=== PATIENT | male | born 1985 | race Caucasian/White ===

== ENCOUNTER → 2018-04-30 09:44 | Outpatient (CLI) | payer MEDICARE, SELFPAY ==
--- NOTE | 2018-04-30 09:50 | US_ITS ---
STUDY: RENAL ULTRASOUND - COMPLETE REASON FOR EXAM: Male, 32 years old. Bladder dysfunction TECHNIQUE: Ultrasound evaluation of the kidneys was performed with real-time and static dee-scale imaging. COMPARISON: None. FINDINGS: RIGHT KIDNEY: Atrophy of the RIGHT kidney is noted. The right kidney measures 5.2 x 3.6 x 2.5 cm. There is a normal cortex of the right kidney. The renal cortex measures 0.6 cm. There is no right renal mass or cyst. There are no right renal calculi. There is no right hydronephrosis. DISTAL RIGHT URETER: There is non-visualization of the distal right ureter. There is no demonstrated right ureterovesical junction calculus. There is no demonstrated right ureteral jet. LEFT KIDNEY: There is hypertrophy of the LEFT kidney. The left kidney measures 12.9 x 5.5 x 4.9 cm. There is a normal cortex of the left kidney. The renal cortex measures 1.9 cm. There is no left renal mass or cyst. There are no left renal calculi. There is no left hydronephrosis. DISTAL LEFT URETER: There is non-visualization of the distal left ureter. There is no demonstrated left ureterovesical junction calculus. There is no demonstrated left ureteral jet. AORTA: Not evaluated. BLADDER: Not evaluated. US/Kidney and Bladder IMPRESSION: There is atrophy of the RIGHT kidney and hypertrophy of the LEFT kidney. There are NO kidney stones, masses, cysts or hydronephrosis. Electronically Signed: Cole Connelly MD at 3:36 EST , Service support ,
== END ==
PROVIDERS: Family Provider Family Medicine; PCP Family Medicine; Referring Provider Urology; Visit Provider Urology
DX: N31.9 Neuromuscular dysfunction of bladder, unspecified (principal); N39.41 Urge incontinence; N26.1 Atrophy of kidney (terminal)
CPT/HCPCS: 76770

== ENCOUNTER 2018-06-05 06:05 | Day surgery (SDC) | payer MEDICARE, SELFPAY ==
[2018-06-05 06:54] VITALS: BP 112/66; PULSE 71; RESP 16; TEMP 36.6; O2SAT 97; BMI 21.6
[2018-06-05 07:29] LABS: Hematocrit 43.6 % (40-54); Hemoglobin 14.7 g/dl (13.0-16.5); Mean Corp Hgb Conc 33.7 g/gl (32-36); Mean Corpuscular Hgb 31.5 pg (27.0-32.0); Mean Corpuscular Volume 93.6 fL (80-94); Mean Platelet Vol. 10.3 fl (6.2-12.0); Platelet Count 182 K/mm3 (150-450); RBC Distribution Width SD 43.3 fl (35.1-43.9); Red Blood Count 4.66 M/mm3 (4.6-6.2); White Blood Count 3.8 K/mm3 (4.4-11.0)
[2018-06-05 07:31] LABS: Scan Indicated on CBC? Y/N NO
[2018-06-05] MEDS: Cefazolin 2 GM in 0.9% Normal Saline 100 ML IV (07:32)
[2018-06-05 07:37] LABS: Anion Gap 6 (5-15); BUN 25 mg/dL (7-18); Chloride 110 mmol/L (98-107); Creatinine, Serum 0.86 mg/dL (0.70-1.30); EST Glomerular Filtration Rate 109 mL/min (>60); Est Glom Filt Rate - Afr Amer 132 mL/min (>60); Estimated Creatinine Clearance 122.63 ml/min; Glucose 103 mg/dL (74-106); Potassium 3.7 mmol/L (3.5-5.1); Sodium Level 145 mmol/L (136-145)
[2018-06-05] MEDS: Lubricating Jelly 60 GM Tube 30 GM TOPICAL (07:42)
[2018-06-05] MEDS: Lidocaine Jelly 2% 20 ML Syringe (URO-JET) 20 APPLIC (07:42)
--- NOTE | 2018-06-05 07:55 | DCINST_ITS ---
Discharge Diet: Light diet - advance as tolerated Discharge Activity: Return to Normal Activity Call your doctor if you observe: Fever of 101 or Higher Suture Line Care: Avoid Pulling/Pushing, Avoid Pinching/Bending Allergies/Adverse Reactions: Allergies No Known Allergies Allergy (Verified 05/29/18 14:23) Medications to take at Discharge Ascorbic Acid [Vitamin C] 1,000 mg PO DAILY@0800 09/13/13 Cholecalciferol (Vitamin D3) [Vitamin D] 1 tab PO DAILY 09/13/13 Cranberry 500 mg PO DAILY 09/13/13 Multivitamins,Therapeutic [Multivitamin] 1 tab PO DAILY 09/13/13 Oxybutynin [Ditropan] 15 mg PO DAILY 09/13/13 Polyethylene Glycol 3350 [Miralax] 17 gm PO PRN PRN 09/13/13 Pyridoxine HCl [Vitamin B-6] 100 mg PO DAILY 09/13/13 Vitamin E 400 units PO DAILY 09/13/13 Oxycodone CR [Oxycontin] 10 mg PO TID 05/29/18 Primary Care Physician: Nba Gunter MD [Primary Care Provider] - Test Results: Test results from this visit will be discussed in further detail at your follow- up appointment, if applicable. Please Follow Up With: Luis Enrique Pearce MD When: in 4 weeks, please call to make an appointment.
--- NOTE | 2018-06-05 07:56 | PCM.OPRPT ---
Report of Operation Date of Procedure: 06/05/18 Pre-Operative Diagnosis: Neurogenic bladder frequency urgency urge incontinence Post-Operative Diagnosis: Same Surgery/Procedure Performed:: Cystoscopy and injection of neuro paralytic, Botox 300 units Description of Surgical Findings:: 32-year-old male taken back to the operating room after smooth induction of anesthesia he was placed in dorsolithotomy position lidocaine jelly was instilled into the urethra and set to take effect for 5 minutes I then performed a cystoscopy the entire length the urethra was normal the prostate was normal inside the bladder was trabeculated and left the right ureteral orifice was normal I then injected a total of 300 units into the back of the bladder and over 20 injection sites. Minimal bleeding after the injection was completed. I then drained the bladder remove the cystoscope and anesthesia was reversed. Type of Anesthesia:: Local MAC Drains: none - Admit VTE Documentation VTE Present on Admission: No VTE Mechan Device Prophylaxis: SCD's
[2018-06-05 08:00] VITALS: BP 104/60; BP 112/66; PULSE 62; RESP 16; TEMP 36.5; O2SAT 97
[2018-06-05 08:05] VITALS: BP 101/56; BP 112/66; PULSE 59; RESP 16; O2SAT 97
[2018-06-05 08:10] VITALS: BP 101/58; BP 112/66; PULSE 62; RESP 18; O2SAT 98
[2018-06-05 08:15] VITALS: BP 112/66; BP 92/61; PULSE 65; RESP 18; TEMP 36.6; O2SAT 98
[2018-06-05 08:54] VITALS: BP 112/66
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
== END 2018-06-05 08:55 | disposition home or self-care (01) ==
LOC: SDC 06:05 → AC 06:07
PROVIDERS: Family Provider Family Medicine; PCP Family Medicine; Referring Provider Urology; Visit Provider Urology
PROC: 3E0K8GC Introduction of Other Therapeutic Substance into Genitourinary Tract, Via Natural or Artificial Opening Endoscopic (ICD-10-PCS; CPT 52287; principal; 2018-06-05 07:20)
DX: N31.9 Neuromuscular dysfunction of bladder, unspecified (principal); R35.0 Frequency of micturition; N39.41 Urge incontinence; N32.89 Other specified disorders of bladder; Z79.899 Other long term (current) drug therapy; Z86.711 Personal history of pulmonary embolism
CPT/HCPCS: 52287; 80048; 85027; J7120; J0585; J2405; J3490

== ENCOUNTER 2020-04-05 12:29 | Emergency (ER) | payer MEDICARE, MEDICAID, SELFPAY ==
[2020-04-05 12:30] VITALS: BP 158/78; PULSE 64; RESP 18; TEMP 36.3; O2SAT 100; BMI 23.0
[2020-04-05 12:40] VITALS: BP 158/78; PULSE 64; RESP 18; TEMP 36.3; O2SAT 100
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
--- NOTE | 2020-04-05 12:47 | ED.VIS.GEN ---
History of Present Illness Chief Complaint: Abd Pain Informant: Patient Onset: Yesterday Context: Gradual Onset Current Severity: Mild Maximum Severity: Moderate Narrative: Patient present secondary to right lower quadrant abdominal pain. He has a history of a T4 spinal injury with resulting paraplegia. He states it is very atypical for him to feel any pain in his abdomen. He noted pain in the right lower quadrant last evening and has decreased appetite today. No fever or chills. He does self caths and states his urine has not seemed cloudy or abnormal recently. He has in the past required Botox injections to his bladder and has not done this in quite some time. He denies history of kidney stone. - Past Medical History (1) T4 spinal cord injury Status: Chronic (2) Paraplegia Status: Chronic Past Medical History - Allergies and Home Meds Allergies/Adverse Reactions: Allergies No Known Allergies Allergy (Verified 04/05/20 12:33) Primary Care Physician: Nba Gunter MD [Primary Care Provider] - Smoking Status: Never smoker Review of Systems General: Denies: Chills, Fever Eyes: Denies: Visual changes - bilaterally ENT: Denies: Bilateral ear pain Cardiovascular: Denies: Chest pain Respiratory: Denies: Dyspnea, Cough Gastrointestinal: Reports: Abdominal pain. Denies: Nausea, Vomiting Genitourinary: Denies: Dysuria Musculoskeletal: Denies: Swelling, Extremity Pain Skin: Denies: Rash Neurological: Denies: Headache Hematologic: Denies: Easy bruising, Easy bleeding Allergy: Denies: Uticaria Physical Exam Vital Signs/Narrative: Vital Signs Temp Pulse Resp BP Pulse Ox 04/05/20 12:40 97.4 F L 64 18 158/78 H 100 04/05/20 12:30 97.4 F L 64 18 158/78 H 100 Inital Vital Signs reviewed: Yes General: Well nourished, Well developed Head: Normocephalic ENT: Moist mucous membranes Neck: Supple Cardiovascular: Regular rate, Regular rhythm Respiratory: No distress, CTA bilaterally Abdomen: Soft, Tender - Mild tenderness in the right lower quadrant., Hypoactive bowel sounds. Negative for: Guarding, Rebound tenderness Skin: Normal color Neurological: Alert, Oriented x3 Psychological: Normal affect Diagnostic/Tx/Re-eval Impressions Abdomen/Pelvis CT 04/05/20 12:46 IMPRESSION: Stable severe atrophy of the right kidney. Compensatory hypertrophy of the left kidney. Electronically Signed: Magdi Nesbitt, at 15:30 EDT , Service support , 04/05/20 12:46 Abdomen/Pelvis WITH Contrast [CT] Stat Laboratory Results 04/05/20 04/05/20 04/05/20 12:50 12:50 13:19 WBC 3.9 L RBC 4.40 L Hgb 13.9 Hct 41.8 MCV 95.0 H MCH 31.6 MCHC 33.3 RDW Std Deviation 44.0 H RDW Coeff of Mode 12.7 Plt Count 167 MPV 9.7 Immature Gran % (Auto) 0.300 Neut % (Auto) 70.3 H Lymph % (Auto) 20.6 [place] % (Auto) 8.0 Eos % (Auto) 0.8 Baso % (Auto) 0.0 Absolute Neuts (auto) 2.7 Absolute Lymphs (auto) 0.80 L Nucleated RBC % 0 Sodium 143 Potassium 3.8 Chloride 107 Carbon Dioxide 31.0 Anion Gap 5 BUN 17 Creatinine 0.85 Estim Creat Clear Calc 129.63 Est GFR (MDRD) Af Amer 133 Est GFR (MDRD) Non-Af 110 BUN/Creatinine Ratio 20.0 Glucose 107 H Calcium 9.5 Total Bilirubin 0.60 Direct Bilirubin 0.17 AST 16 ALT 26 Alkaline Phosphatase 79 Total Protein 7.7 Albumin 4.1 Globulin 3.6 Urine Color Yellow Urine Clarity Clear Urine pH 7.0 Ur Specific [place] 1.010 Urine Protein Negative Urine Glucose (UA) Normal Urine Ketones Negative Urine Occult Blood Negative Urine Nitrite Negative Urine Bilirubin Negative Urine Urobilinogen 1 H Ur Leukocyte Esterase 100 H Urine RBC 0-5 SEEN Urine WBC 0-5 SEEN Ur Squamous Epith Cells 0-5 SEEN Urine Bacteria 0 SEEN Urine Mucus 0 SEEN - Medical Decision Making Patient was given morphine and Zofran for pain and nausea here. Blood work is unremarkable. Urinalysis shows no sign of infection. CT scan shows chronic atrophy of the right kidney but no acute findings noted. Appendix was visualized and appears normal. Test results discussed with patient and family at bedside. This time I do not have a definitive cause for his symptoms. He did routinely get Botox injections to his bladder yearly and has currently gone 22 months since his last injection. He states typically he would have leakage of urine that would tell him it was time to get another injection and he has not noted that this time. I wonder if you might be starting to get some bladder spasm catching a nerve causing his current pain. He was encouraged to follow-up with Dr. Pearce. ED Disposition - Plan for ED Patient: Disposition: Home or Assisted Living Diagnosis: Abdominal pain Instructions: ED Unknown Causes of Abdominal Pain Male Referrals: Nba Gunter MD [Primary Care Provider] - 3-5 Days if not improving
[2020-04-05] MEDS: Morphine 4 MG/ML Syringe IV ×2 (12:57→14:45)
[2020-04-05] MEDS: Ondansetron 4 MG/2 ML Vial IV (12:57)
[2020-04-05] MEDS: 0.9% Normal Saline 1,000 ML 150 ML IV (12:57)
[2020-04-05 13:00] LABS: Absolute Neutrophil Count 2.7 X10^3/uL (2.0-7.7); Eosinophil# 0.03 X10^3/uL; Eosinophils% 0.8 % (0-5); Hematocrit 41.8 % (40-54); Hemoglobin 13.9 g/dL (13.0-16.5); Lymphocyte % 20.6 % (19-41); Mean Corp Hgb Conc 33.3 g/dL (32-36); Mean Corpuscular Hgb 31.6 pg (27.0-32.0); Mean Platelet Vol. 9.7 fl (6.2-12.0); Monocyte# 0.31 X10^3/uL; NRBC Flagged by Analyzer 0 % (0-5); Neutrophil # 2.74 X10^3/uL (2.7-7.7); Neutrophil % 70.3 % (47-70); Platelet Count 167 K/mm3 (150-450); RBC Distribution Width CV 12.7 % (11.6-14.6); White Blood Count 3.9 K/mm3 (4.4-11.0)
[2020-04-05 13:17] LABS: AST(SGOT) 16 U/L (15-37); Alanine Aminotransfer ALT/SGPT 26 U/L (16-61); Albumin, Serum 4.1 g/dL (3.2-5.0); Alkaline Phosphatase 79 U/L (45-117); Anion Gap 5 (5-15); BUN 17 mg/dL (7-18); Bilirubin, Direct 0.17 mg/dL (0.00-0.30); Calcium,Total 9.5 mg/dL (8.5-10.1); Chloride 107 mmol/L (98-107); Creatinine, Serum 0.85 mg/dL (0.70-1.30); EST Glomerular Filtration Rate 110 mL/min (>60); Est Glom Filt Rate - Afr Amer 133 mL/min (>60); Estimated Creatinine Clearance 129.63 ml/min; Globulin 3.6 g/dL (2.2-4.2); Glucose 107 mg/dL (74-106); Potassium 3.8 mmol/L (3.5-5.1); Protein, Total 7.7 g/dL (6.4-8.2); Sodium Level 143 mmol/L (136-145)
[2020-04-05 13:23] LABS: Bacteria 0 SEEN /hpf (None Seen); Color, Urine Yellow (Yellow); Glucose, Dipstick Normal (Normal); Ketone-Dipstick Negative (Negative); Leukocyte Esterase-Dipstick 100 /ul (Negative); Mucous, Urine 0 SEEN /hpf (<or=2+); Nitrite-Dipstick Negative (Negative); Occult Blood-Urine Negative /ul (Negative); Protein-Dipstick Negative (Negative); Urine Bilirubin Dipstick Negative (Negative); Urine Clarity Clear (Clear); Urine Urobilinogen 1 mg/dl (Normal)
[2020-04-05 13:29] LABS: Red Blood Cells-Urine 0-5 SEEN /hpf (0-5); Squamous Epithelial Cells - UA 0-5 SEEN /hpf (0-5); White Blood Cells 0-5 SEEN /hpf (0-5)
[2020-04-05 16:02] VITALS: BP 116/77; PULSE 59; RESP 18; O2SAT 99
== END 2020-04-05 16:02 | disposition home or self-care (01) ==
PROVIDERS: Emergency Provider Emergency Medicine; PCP Family Medicine
DX: R10.31 Right lower quadrant pain (principal); G82.20 Paraplegia, unspecified; S24.102S Unspecified injury at T2-T6 level of thoracic spinal cord, sequela; X58.XXXS Exposure to other specified factors, sequela; Z79.899 Other long term (current) drug therapy
CPT/HCPCS: 74177; 80048; 80076; 81001; 85025; 96361; 96374; 96375; 96376; 99281; 99284; J7030; Q9967; A4216; J2405

== ENCOUNTER 2020-07-14 06:01 | Day surgery (SDC) | payer MEDICARE, MEDICAID, SELFPAY ==
[2020-07-14 06:32] VITALS: BP 130/72; PULSE 52; RESP 18; TEMP 36.9; O2SAT 100; BMI 21.6
[2020-07-14] MEDS: Lactated Ringers 1,000 ML 100 ML IV (06:50)
--- NOTE | 2020-07-14 07:17 | PCM.HP.STD ---
Problem List (1) Paraplegia Status: Chronic History of Present Illness Date of Admission: 07/14/20 Chief Complaint: Neurogenic bladder The patient is a 34 year old male with a history of a spinal cord injury he has a neurogenic bladder and presents today for Botox injection we used 300 units into the bladder. Past Medical History Past Medical History (Chronic Problems): Chronic Problems T4 spinal cord injury (Chronic) Paraplegia (Chronic) Allergies No Known Allergies Allergy (Verified 07/14/20 06:28) Home Medications: Ambulatory Orders Medication Instructions Recorded Ascorbic Acid [Vitamin C] 1,000 mg PO DAILY@0800 09/13/13 Cholecalciferol (Vitamin D3) 1 tab PO DAILY 09/13/13 [Vitamin D] Cranberry 500 mg PO DAILY 09/13/13 Multivitamins,Therapeutic 1 tab PO DAILY 09/13/13 [Multivitamin] Oxybutynin [Ditropan] 15 mg PO DAILY 09/13/13 Polyethylene Glycol 3350 [Miralax] 17 gm PO PRN PRN 09/13/13 Vitamin E 400 units PO DAILY 09/13/13 Oxycodone HCl 10 mg PO TID 04/05/20 Cyanocobalamin (Vitamin B-12) 1,000 mcg PO DAILY 07/06/20 [Vitamin B-12] Surgical History: no surgical history Smoking Status: Never smoker Tobacco Use: Non-smoker Review of Systems Constitutional: Denies: Chills, Fever, Weight Change HEENT: Denies: Head Aches, Sinus Congestion, Sinus Drainage Cardiovascular: Denies: Chest Pain, Palpitations Respiratory: Denies: Cough, Shortness of breath at rest, Sputum production Gastrointestinal: Denies: Abdominal Pain, Nausea, Vomiting Genitourinary: Denies: Dysuria Musculoskeletal: Denies: Joint Pain, Joint Tenderness Skin: Denies: Rash, Wounds Neurological: Denies: Numbness, Tingling, Focal weakness Psychiatric: Denies: Anxiety, Depression, Homicidal Ideations, Suicidal Ideations Hematologic/ Lymphatic: Denies: Easy Bruising, Easy Bleeding VTE Information - Inpt Only VTE Present on Admission: No - Physical Exam Vitals/I&O's: Vital Signs Temp Pulse Resp BP Pulse Ox 98.4 F 52 L 18 130/72 H 100 07/14/20 06:32 07/14/20 06:32 07/14/20 06:32 07/14/20 06:32 07/14/20 06:32 Oxygen Delivery Method Room Air Weight: 70.307 kg Body Mass Index (BMI) 21.6 General: Alert, Oriented x3, Cooperative HEENT: Atraumatic, PERRLA, EOMI, Normocephalic Neck: Supple, No JVD, Negative Carotid Bruits Lungs: Clear to auscultation, Normal air movement Cardiovascular: Regular rate, No murmurs Abdomen: Bowel Sounds Present, Soft, Non Tender Extremities: No edema, Capillary Refill Less than 3 Seconds Skin: No rashes, No breakdown Musculoskeletal: No Tenderness to Palpation of Joints or Extremities Neurological: Cranial nerves II-XII grossly intact Psych/Mental Status: Normal Affect, Appropriate Microbiology Past 72 Hours 07/13/20 10:11 Interface Orders SARS-CoV-2 Antigen (Rapid) - Final Current Medications Botulinum Toxin Type A (Botulinum Toxin A 100 Units/Vial Vial) 300 units IJ X1 ONE Stop: 07/14/20 07:21 Cefazolin Sodium 2 gm/ Sodium (Chloride) 110 mls @ 150 mls/hr IV PREOP ONE Stop: 07/14/20 08:03 Lactated Ringer's () 1,000 mls @ 100 mls/hr IV .Q10H SAVANNAH Last Admin: 07/14/20 06:50 Dose: 100 mls/hr Documented by: Assessment/Plan Plan for Botox injection to the bladder about 300 units.
--- NOTE | 2020-07-14 07:19 | DCINST_ITS ---
Discharge Diet: Light diet - advance as tolerated Discharge Activity: Return to Normal Activity Call your doctor if your incision/area has: Sudden Increased Bleeding Call your doctor if you observe: Fever of 101 or Higher Suture Line Care: Avoid Pulling/Pushing, Avoid Pinching/Bending Allergies/Adverse Reactions: Allergies No Known Allergies Allergy (Verified 07/14/20 06:28) Medications to take at Discharge Ascorbic Acid [Vitamin C] 1,000 mg PO DAILY@0800 09/13/13 Cholecalciferol (Vitamin D3) [Vitamin D] 1 tab PO DAILY 09/13/13 Cranberry 500 mg PO DAILY 09/13/13 Multivitamins,Therapeutic [Multivitamin] 1 tab PO DAILY 09/13/13 Oxybutynin [Ditropan] 15 mg PO DAILY 09/13/13 Polyethylene Glycol 3350 [Miralax] 17 gm PO PRN PRN 09/13/13 Vitamin E 400 units PO DAILY 09/13/13 Oxycodone HCl 10 mg PO TID 04/05/20 Cyanocobalamin (Vitamin B-12) [Vitamin B-12] 1,000 mcg PO DAILY 07/06/20 Primary Care Physician: Nba Gunter MD [Primary Care Provider] - Test Results: Test results from this visit will be discussed in further detail at your follow- up appointment, if applicable. Please Follow Up With: Luis Enrique Pearce MD When: 4 weeks, please call to make an appointment.
[2020-07-14] MEDS: Cefazolin 2 GM in 0.9% Normal Saline 100 ML IV (07:26)
[2020-07-14] MEDS: 0.9% Normal Saline (Pres. free 10 ML Vial (07:30)
--- NOTE | 2020-07-14 07:46 | PCM.OPRPT ---
Problem List (1) Paraplegia Status: Chronic Report of Operation Date of Procedure: 07/14/20 Pre-Operative Diagnosis: Neurogenic bladder Post-Operative Diagnosis: Same Surgery/Procedure Performed:: Cystoscopy injection of Botox 300 units Description of Surgical Findings:: Patient has a history of an overactive bladder and neurogenic bladder due to spinal cord injury which has failed conservative measures and medical therapy. Today the patient presents to the hospital for an injection of Botox into the bladder. The patient understands the risk of the procedure involved bleeding, infection, paralytic bladder and failure to empty the bladder. The possibility of needing a catheter or self intermittent catheterization of the bladder is not able to function properly. The risk of infection and bleeding and the risk of anesthesia was discussed with the patient. Patient signed the consent form and we proceeded to the operating room. Patient was taken back to the operating room after induction of anesthesia, the patient was placed supine on the table in the legs were placed in dorsolithotomy position. The genitals and urethra were prepped and draped in usual sterile fashion. Using a 21 Albanian offset cystoscope I went into the bladder via the urethra. The bladder was inspected. The trigone was normal. The left and right ureter orifice were identified. On the back table the Botox medication was prepared per the assistant grocery's instruction, a total of 300 units of Botox were prepared. We then used a Botox needle through the cystoscope and then injected 0.5 cc of Botox solution into each site going through a matrix pattern in the back of the bladder to inject about every centimeter across the back of the bladder in several layers avoiding the trigone. After a total of 300 units of Botox was injected into the bladder there was minimal bleeding. The bladder was drained. The patient's anesthetic was reversed and the patient was taken back to the PACU in stable condition. Type of Anesthesia:: General - Admit VTE Documentation VTE Present on Admission: No
[2020-07-14 07:54] VITALS: BP 116/70; BP 130/72; PULSE 54; RESP 14; TEMP 36.6; O2SAT 95
[2020-07-14 08:00] VITALS: BP 110/96; BP 130/72; PULSE 51; RESP 16; O2SAT 96
[2020-07-14 08:05] VITALS: BP 130/72; BP 132/84; PULSE 50; RESP 16; O2SAT 97
[2020-07-14 08:10] VITALS: BP 122/85; BP 130/72; PULSE 46; RESP 16; TEMP 36.5; O2SAT 97
[2020-07-14] MEDS: Acetaminophen 325 MG Tablet 650 MG PO (08:34)
[2020-07-14 08:41] VITALS: BP 130/72
== END 2020-07-14 08:58 | disposition home or self-care (01) ==
LOC: SDC 06:03 → AC 06:04
PROVIDERS: PCP Family Medicine; Referring Provider Urology; Visit Provider Urology
PROC: 3E0K8GC Introduction of Other Therapeutic Substance into Genitourinary Tract, Via Natural or Artificial Opening Endoscopic (ICD-10-PCS; CPT 52287; principal; 2020-07-14 07:20)
DX: N31.9 Neuromuscular dysfunction of bladder, unspecified (principal); N39.41 Urge incontinence; N32.81 Overactive bladder; N31.2 Flaccid neuropathic bladder, not elsewhere classified; Z20.822 Contact with and (suspected) exposure to COVID-19; G82.20 Paraplegia, unspecified; S24.102S Unspecified injury at T2-T6 level of thoracic spinal cord, sequela; X58.XXXS Exposure to other specified factors, sequela; Z79.899 Other long term (current) drug therapy; Z86.711 Personal history of pulmonary embolism
CPT/HCPCS: 00910; 52287; 87426; C9803; J7120; J0585; J3490

== ENCOUNTER 2021-07-19 21:02 | Emergency (ER) | payer MEDICARE, MEDICAID, SELFPAY ==
[2021-07-19 21:02] VITALS: BP 119/68; PULSE 85; RESP 18; TEMP 36.2; O2SAT 97; BMI 21.6
--- NOTE | 2021-07-19 21:07 | RAD_ITS ---
STUDY: X-RAY - RIGHT FOOT CLINICAL: Male, 35 years old. Pain and swelling. TECHNIQUE: 3 view(s) of the foot. COMPARISON: Right ankle, 07/19/2021. FINDINGS: Normal talus, calcaneus, and tarsal bones. Mild arthrosis of the visualized subtalar, talonavicular, calcaneocuboid, tarsal and tarsometatarsal articulations. Normal metatarsi. Normal metatarsophalangeal joint of the great toe. Normal tibial and fibular sesamoid bones. Normal interphalangeal joint of the great toe. Normal phalanges of the great toe. Normal second through fifth metatarsophalangeal joints. Normal interphalangeal joints and phalanges of the lesser toes. The soft tissue structures are unremarkable. RAD/Foot min 3 Views IMPRESSION: Arthrosis of the midfoot. Electronically Signed: Merrill Olivia DO at 21:50 EST ,
--- NOTE | 2021-07-19 21:30 | RAD_ITS ---
STUDY: X-RAY - RIGHT ANKLE REASON FOR EXAM: Male, 35 years old. In an swelling. TECHNIQUE: A view(s) of the ankle. COMPARISON: None. FINDINGS: Normal visualized distal tibia and fibula. Normal medial and lateral malleoli. Normal tibiotalar articulation and ankle mortise. Normal visualized talus and calcaneus. The visualized subtalar, talonavicular, calcaneocuboid and tarsal articulations are normal. There is no acute fracture, dislocation or destructive osseous pathology. The soft tissue structures are unremarkable. RAD/Ankle min 3 Views IMPRESSION: No acute fracture or dislocation. Electronically Signed: Merrill Olivia DO at 21:49 EST ,
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
== END 2021-07-19 22:09 | disposition home or self-care (01) ==
PROVIDERS: Emergency Provider Emergency Medicine; PCP Family Medicine; Visit Provider Emergency Medicine
DX: S93.401A Sprain of unspecified ligament of right ankle, initial encounter (principal); G82.20 Paraplegia, unspecified; X58.XXXA Exposure to other specified factors, initial encounter
CPT/HCPCS: 73610; 73630; 99282

== ENCOUNTER 2022-03-21 09:45 | Outpatient (RCR) | payer MEDICARE, MEDICAID, SELFPAY ==
[2022-02-28 10:29] VITALS: BP 126/63; PULSE 68; RESP 16; TEMP 35.9; BMI 22.3
--- NOTE | 2022-02-28 13:00 | PCM.WC.HP ---
History of Present Illness Date of Service: 02/28/22 Chief Complaint: Left Foot Ulcer History of Wound: Mr. Bailey is a 36 yo who presents to the wound center due to non healing left foot ulcer. Noted initially in October/November, he denies any known precipitating factor. History of Paraplegia and has no feeling in his feet. He has been seeing Podiatry at the [facility]. Has had some debridement done and has been applying Megan without any significant improvement. He denies any significant drainage. No chills, fever or feeling of unwell. [facility] Medical History (Updated 02/28/22 @ 13:[address] Katharine Hernandez MD) Paralysis Ulcer of left foot with fat layer exposed Home Medications ascorbic acid (vitamin C) 500 mg tablet (Vitamin C) 1,000 mg PO DAILY@0800 09/13/13 [History Last Taken Unknown] cholecalciferol (vitamin D3) 25 mcg (1,000 unit) capsule (Vitamin D3) 1 tab PO DAILY 09/13/13 [History Last Taken Unknown] multivitamin with folic acid 400 mcg tablet (Thera) 1 tab PO DAILY 09/13/13 [History Last Taken Unknown] oxybutynin chloride 5 mg tablet 15 mg PO DAILY 09/13/13 [History Last Taken Unknown] polyethylene glycol 3350 17 gram oral powder packet 17 g PO PRN PRN Constipation 09/13/13 [History Last Taken Unknown] vitamin E (dl, acetate) 180 mg (400 unit) capsule 400 units PO DAILY 09/13/13 [History Last Taken Unknown] cyanocobalamin (vitamin B-12) 1,000 mcg tablet 1,000 mcg PO DAILY 07/06/20 [History Last Taken Unknown] ciclopirox 0.77 % topical gel 1 applic topical BID 02/28/22 [History Last Taken Unknown] cranberry concentrate-ascorbic acid 4,200 mg-20 mg capsule 1 cap PO DAILY 02/28/22 [History Last Taken Unknown] meloxicam 15 mg tablet 15 mg PO DAILY 02/28/22 [History Last Taken Unknown] oxycodone-acetaminophen 7.5 mg-325 mg tablet 1 tab PO Q6H PRN Pain 02/28/22 [History Last Taken Unknown] Allergy/AdvReac Type Severity Reaction Status Date / Time No Known Allergies Allergy Verified 02/28/22 10:48 Social History Smoking Status: Never smoker ROS Constitutional Constitutional: Denies fatigue, fever(s), frequent falls, headache(s), increased appetite, lethargy, malaise or night sweats Eyes Eyes: Denies change in eye color, change in vision, discharge from eye(s), discongugate gaze, double vision, dry eyes or loss of central vision ENT HEENT: Denies epistaxis, facial pain, halitosis, headache(s), mouth pain, mucositis, nasal congestion or nasal obstruction Cardiovascular Cardiovascular: Denies bluish discoloration of hand/feet, claudication, clubbing, cold extremities, easily tiring during activity, erythema on extremities, flutter in chest or hypertension Respiratory/Chest Respiratory/Chest: Denies difficulty clearing secretions, dusky skin, dyspnea, dyspnea on exertion, excessive phlegm production, hemoptysis, hoarseness, nata-oral cyanosis or portable oxygen @ home Gastrointestinal Gastrointestinal: Reports constipation; Denies dry heaves, dyspepsia, dysphagia, early satiety, excessive flatus, heartburn or rectal bleeding Genitourinary Genitourinary: Denies abdominal discomfort, hematuria, low back pain, penile discharge or penile swelling Musculoskeletal Musculoskeletal: Denies extremity pain, joint swelling, loss of height, muscle cramps, muscle spasms or muscle weakness Integumentary Integumentary: Denies erythema, furuncle, hirsutism, lesions, nail changes, new lesions, photosensitivity or pruritus Neurologic Neurologic: Denies burning sensations, confusion, convulsions, disequilibrium, dizziness, headache(s) or lack of coordination Psychiatric Psychiatric: Denies hopelessness, irritability, memory loss, mood swings, panic attacks, paranoia or suicidal ideation Endocrine Endocrinology: Denies cold intolerance, deepening of the voice, excessive sweating, fatigue, flushing, heat intolerance, increase in ring/shoe/hat size or palpitations Allergic/Immunologic Allergic/Immunologic: Denies throat swelling, tongue swelling, hives, urticaria, eczemia or wheezing Vital Signs Vital Signs Vital Signs: 02/28/22 10:29 Temperature 96.7 F L Temperature Source Temporal Pulse Rate 68 Respiratory Rate 16 Blood Pressure 126/63 H Blood Pressure Mean 84 Blood Pressure Source Monitor Blood Pressure Position Sitting Blood Pressure Location Left Arm Oxygen Delivery Method Room Air Weight Weight: 160 lb Body Mass Index (BMI) 22.3 Physical Exam Const alert, oriented x3 and no apparent distress General Appearance: cooperative and comfortable HEENT normocephalic, head/scalp atraumatic and hearing grossly normal bilaterally Eyes EOMs intact bilaterally Neck full ROM and supple General: normal visual inspection Resp normal respiratory effort Effort and Inspection: able to speak in complete sentences Cardio regular rate, regular rhythm, S1 normal heart sound and S2 normal heart sound GI soft to palpation and non-tender Skin Wounds: wounds noted Neuro oriented x3 and CN's II-XII intact bilaterally Psych mental status grossly normal, thought process normal, cooperative, affect normal and speech normal Debridement Note Debridement Note Wound debrided: Left Dorsal Foot Type of Debridement: Excisional debridement Anesthesia Used: 4% Lidocaine Solution Depth: Down to and including healthy tissue and in the subcutaneous layer Percentage of wound debrided: 100 Instrument Used: 3mm curette Tissue Removed: Slough and devitalized tissue Severity: Fat Layer Exposed Amount of bleeding with debridement: Mild Bleeding Controlled with: Pressure Patient tolerated procedure: Patient tolerated procedure well Post-Debridement Measurements and Additional Note: Post-Debridement Measurements/Treatment - Nurse 1 - General Ulcer Assessment Start: 02/28/22 09:45 Freq: Status: Active Protocol: ADEEL Activity Type Activity Date Activity User E-sign Co-sign Detail Recorded Client Recorded Date Recorded By Document 02/28/22 10:29 [facility] [id number] 02/28/22 10:44 [facility] 02/28/22 10:29 - Today's Visit Information Type of service Initial Visit Arrival Mode Wheelchair Transfer Assistance None Accompanied by girlfriend Patient Identification Verified (Name & Yes ) Patient Requires Transmission-Based No Precautions Height and Weight Height 5 ft 11 in Weight 160 lb Weight in Pounds 160.0 lbs Weight Measurement Method Estimated by Patient Body Mass Index (BMI) 22.3 BMI Classification Normal BSA - Dylan 1.92 Vital Signs Temperature (97.8 F-99.1 F) 96.7 F L Temperature Source Temporal Pulse Rate (60-100) 68 Pulse Location Monitor Respiratory Rate (12-18) 16 Respiratory rate source Observation Oxygen Delivery Method Room Air Blood Pressure (90/60-120/80) 126/63 H Blood Pressure Mean 84 Source Monitor Position Sitting Blood Pressure Location Left Arm History Since Last Visit- (Skip if this is Patient's initial visit) Left Footwear Regular Shoe Right Footwear Regular Shoe Pain Scale: 0-10 Numeric Is Patient Pain Free? Yes Lower Extremity Assessment/ Foot Assessment/ Toe Nail Assessment Right -Lower Extremity Comment (If N/A Above PTHAD RECENT ) ARTERIAL STUDIES AT [facility] Left -Lower Extremity Comment (If N/A Above PT HAD RECENT ) ARTERIAL STUDIES AT [facility] Communication Assessment Preferred language Kinyarwanda Senior Construction Manager Required No Able to Read Yes Able to Write Yes Communication Tools None Right Hearing Abillity Normal Left Hearing Abillity Normal Visual Assistive Devices None Teaching Assessment Preferences Verbal,Written, Audio/Visual, Demonstration Barriers to Learning None Readiness To Learn Excellent Willingness to Engage in Self Management High Activies Readiness to Engage in Self Management High Activities Anxiety Level Calm Cooperation Cooperative Perception Coherent Interest in Health Problem Asks Questions Education Importance Acknowledges Need Smoking Status Never smoker Is Patient Diabetic No Functional Assessment Recent Decline in Ability to Perform Denies Any Declines Culture/Mormon/Neuropsychology Medical Consultant Cultural/Mormon Needs that may affect No Treatment Plan Teaching: Wound Center *Welcome to the Wound Center -Person Taught Patient, Significant Other -Teaching Method Discussion -Response to teaching Verbalize understanding Welcome to the Wound Care Center Kinyarwanda WC - Nurse 1 - General Ulcer Measurement Start: 02/28/22 09:45 Freq: Status: Active Protocol: Activity Type Activity Date Activity User E-sign Co-sign Detail Recorded Client Recorded Date Recorded By Document 02/28/22 10:29 [facility] [id number] 02/28/22 10:44 [facility] 02/28/22 10:29 Wound Center Nurse 1 #1- L FOOT 3/4 WEB SPACE -Combined with other wound No -Current Size (cm) - Length 1.5 -Current Size (cm) - Width 0.6 -Current Size (cm) - Depth 0.1 -Total Square Cm 0.90 -Date of Last Picture (Recall this 02/28/22 field) -Photo Taken Yes -Epithelialization None Present -Tunneling No -Undermining/Tunneling No -Circular Undermining No -Exudate Amt Small -Exudate Type Serosanguineous -Wound Margin Flat & Intact -Granulation Amt Medium (34-66%) -Granulation Quality Red -Slough/Fibrin Yes -Necrosis Amt Medium (34-66%) -Necrotic Tissue Type Adherent Slough -Texture (Nata-wound Skin Appearance) Assessed, Scarring -Moisture (Nata-wound Skin Appearance) Assessed -Color (Nata-wound Skin Appearance) Assessed, Hemosiderin Staining -Temperature (Nata-wound Skin No Abnormality Appearance) (Pt Warm) -Tenderness on Palpation (Nata-wound No Skin Appearance) -Ulcer Cleansing Rinsed/ Irrigated with Saline -Foul Odor after Cleansing No Lower Limb Edema Present Yes Right Calf (cm) 30.6 Right Ankle (cm) 19.8 Left Calf (cm) 30.6 Left Ankle (cm) 19.8 WC - Nurse 2 - General Ulcer CM Notes Start: 02/28/22 09:45 Freq: Status: Active Protocol: Activity Type Activity Date Activity User E-sign Co-sign Detail Recorded Client Recorded Date Recorded By Document 02/28/22 11:12 MW [id number] 02/28/22 11:20 MW 02/28/22 11:12 Wound Center Nurse 2 #1- L FOOT 3/4 WEB SPACE -Time 11:13 -Correct Patient Yes -Correct Side, Site, Position Yes -Correct Procedure Yes -Procedure Performed Yes -Type of Procedure Debridement -Clinical Debridement Subcutaneous -Tissue Removed Subcutaneous -Post Debridement (cm) - Length 1.7 -Post Debridement (cm) - Width 1.0 -Post Debridement (cm) - Depth 0.2 -Total Square (Post) (cm) 1.70 -Area of Debridement (cm) - Length 1.7 -Area of Debridement (cm) - Width 1.0 -Total Square (Area) (cm) 1.70 -Tunneling No -Undermining/Tunneling No -Circular Undermining No -Wound/Ulcer Outcome Not Healed -Ulcer Cleansing Rinsed/ Irrigated with Saline -Foul Odor after Cleansing No -Bioengineered Tissue No -Bleeding Controlled with Pressure -Treatment Response Procedure Tolerated Well -Offloading No -Debridement - Subq, 1st 20sq cm Yes Pain Scale: 0-10 Numeric Is Patient Pain Free? Yes SRUTHI - Nurse 3 - General Ulcer D/C NN Start: 02/28/22 09:45 Freq: Status: Active Protocol: Activity Type Activity Date Activity User E-sign Co-sign Detail Recorded Client Recorded Date Recorded By Document 02/28/22 11:27 DL [id number] 02/28/22 11:29 DL 02/28/22 11:27 Wound Care Nurse 3 #1- L FOOT 3/4 WEB SPACE -Ulcer Cleansing Rinsed/ Irrigated with Saline -Foul Odor after Cleansing No -Primary Dressing Applied Promogran -Primary Dressing Covered/Secured with Dry Gauze, Secured with Tape -Promogran 1 Treatment Response Procedure Tolerated Well Pain Scale: 0-10 Numeric Is Patient Pain Free? Yes WC - Visit Discharge Discharge Condition Stable Ambulatory Status Wheelchair Transportation Private Auto Charges/Coding Visit Charges Office Visits / Consults: 78857 OV L4 New Procedures Integumentary 111xxx-113xx: [id number] Maria Esther subq tissue 20 sq cm/< Assessment/Plan Assessment/Plan (1) Ulcer of left foot with fat layer exposed: CODE(S): L97.522 - Non-pressure chronic ulcer of other part of left foot with fat layer exposed (2) Paraplegia: CODE(S): G82.20 - Paraplegia, unspecified PLAN: Plan Debridement done as documented above, procedure was well-tolerated. No significant concerns for infection at this time, will hold off for culture. Has had 2 rounds of antibiotics over the last couple of months. Also recently had vascular studies, will review. Due to chronicity of wound and failure of wound closure with traditional wound products, I believe patient will benefit from a skin substitute. Application process started. In the meantime, switch from Megan to Promogran, change daily. Wash with soap and water prior to changing. Cover with gauze and tape. Compression, leg elevation, exercise as tolerated, vitamin C, D and zinc discussed. His questions were answered and he was advised to call with any further questions or concerns. Follow-up in a week or sooner if needed. This note was generated with [employer] software. It may contain incorrect words, spelling, and punctuation that were not noted in checking the note before signing.
[2022-03-07 09:57] VITALS: BP 138/87; PULSE 61; RESP 16; TEMP 36.1; BMI 22.3
--- NOTE | 2022-03-07 12:48 | PCM.WC.PN ---
History of Present Illness Date of Service: 03/07/22 Chief Complaint: Left Foot Ulcer History of Wound: Mr. Bailey is a 36 yo who presents to the wound center due to non healing left foot ulcer. Noted initially in October/November, he denies any known precipitating factor. History of Paraplegia and has no feeling in his feet. He has been seeing Podiatry at the [facility]. Has had some debridement done and has been applying Megan without any significant improvement. He denies any significant drainage. No chills, fever or feeling of unwell. Progress of Wound: No new concerns at this time. Has been applying Promogran and Adaptic. Skin substitute approval still pending. Objective Data Objective Data Vital Signs: Vital Signs Temp Pulse Resp BP O2 Del Method 96.9 F L 61 16 138/87 H Room Air 03/07/22 09:57 03/07/22 09:57 03/07/22 09:57 03/07/22 09:57 03/07/22 09:57 Oxygen Delivery Method Room Air Weight: 160 lb Body Mass Index (BMI) 22.3 Charges/Coding Procedures Integumentary 111xxx-113xx: [id number] Maria Esther subq tissue 20 sq cm/< Physical Exam Const alert, oriented x3 and no apparent distress General Appearance: cooperative and comfortable HEENT normocephalic, head/scalp atraumatic and hearing grossly normal bilaterally Eyes EOMs intact bilaterally Neck full ROM and supple General: normal visual inspection Resp normal respiratory effort Effort and Inspection: able to speak in complete sentences Skin Wounds: wounds noted Neuro oriented x3 and CN's II-XII intact bilaterally Psych mental status grossly normal, thought process normal, cooperative, affect normal and speech normal Debridement Note Debridement Note Wound debrided: Left foot Type of Debridement: Excisional debridement Anesthesia Used: 4% Lidocaine Solution Depth: Down to and including healthy tissue and in the subcutaneous layer Percentage of wound debrided: 100 Instrument Used: 3mm curette Tissue Removed: Slough and devitalized tissue Severity: Fat Layer Exposed Amount of bleeding with debridement: Mild Bleeding Controlled with: Pressure Patient tolerated procedure: Patient tolerated procedure well Post-Debridement Measurements and Additional Note: Post-Debridement Measurements/Treatment SRUTHI - Nurse 1 - General Ulcer Assessment Start: 02/28/22 09:45 Freq: Status: Active Protocol: ADEEL Activity Type Activity Date Activity User E-sign Co-sign Detail Recorded Client Recorded Date Recorded By Document 02/28/22 10:29 [facility] [id number] 02/28/22 10:44 [facility] Document 03/07/22 09:57 [facility] [id number] 03/07/22 10:04 [facility] 02/28/22 03/07/22 10:29 09:57 WC - Today's Visit Information Type of service Initial Visit Follow-up Visit (Physician/SOCIAL SERVICE LIAISON ) Arrival Mode Wheelchair Wheelchair Transfer Assistance None None Accompanied by girlfriend girlfriend Patient Identification Verified (Name & Yes Yes ) Patient Requires Transmission-Based No No Precautions Height and Weight Height 5 ft 11 in Weight 160 lb Weight in Pounds 160.0 lbs Weight Measurement Method Estimated by Patient Body Mass Index (BMI) 22.3 22.3 BMI Classification Normal Normal BSA - Dylan 1.92 Vital Signs Temperature (97.8 F-99.1 F) 96.7 F L 96.9 F L Temperature Source Temporal Temporal Pulse Rate (60-100) 68 61 Pulse Location Monitor Monitor Respiratory Rate (12-18) 16 16 Respiratory rate source Observation Observation Oxygen Delivery Method Room Air Room Air Blood Pressure (90/60-120/80) 126/63 H 138/87 H Blood Pressure Mean (mm Hg) 84 104 Source Monitor Monitor Position Sitting Sitting Blood Pressure Location Left Arm Left Arm History Since Last Visit- (Skip if this is Patient's initial visit) Have you changed medications since your No last visit? Any new allergies or adverse reactions No Had a fall/change in ADL's that may No increase risk of falls Signs or symptoms of abuse and/or No neglect since last visit Have you been in the hospital since your No last visit? Has dressing in place as prescribed Yes Has compression in place as prescribed N/A Has offloadiing in place as prescribed N/A Experienced any changes in pain level or No management Left Footwear Regular Shoe Regular Shoe Right Footwear Regular Shoe Regular Shoe Pain Scale: 0-10 Numeric Is Patient Pain Free? Yes Yes Lower Extremity Assessment/ Foot Assessment/ Toe Nail Assessment Right -Lower Extremity Comment (If N/A Above PTHAD RECENT ) ARTERIAL STUDIES AT [facility] Left -Lower Extremity Comment (If N/A Above PT HAD RECENT ) ARTERIAL STUDIES AT [facility] Communication Assessment Preferred language Swedish Fermenting Cellar Dropper Required No Able to Read Yes Able to Write Yes Communication Tools None Right Hearing Abillity Normal Left Hearing Abillity Normal Visual Assistive Devices None Teaching Assessment Preferences Verbal,Written, Audio/Visual, Demonstration Barriers to Learning None Readiness To Learn Excellent Willingness to Engage in Self Management High Activies Readiness to Engage in Self Management High Activities Anxiety Level Calm Cooperation Cooperative Perception Coherent Interest in Health Problem Asks Questions Education Importance Acknowledges Need Smoking Status Never smoker Is Patient Diabetic No Functional Assessment Recent Decline in Ability to Perform Denies Any Declines Culture/Yarsanism/Filter Press Tender Head Cultural/Yarsanism Needs that may affect No Treatment Plan Teaching: Wound Center *Welcome to the Wound Center -Person Taught Patient, Significant Other -Teaching Method Discussion -Response to teaching Verbalize understanding Welcome to the Wound Care Center Swedish WC - Nurse 1 - General Ulcer Measurement Start: 02/28/22 09:45 Freq: Status: Active Protocol: Activity Type Activity Date Activity User E-sign Co-sign Detail Recorded Client Recorded Date Recorded By Document 02/28/22 10:29 [facility] [id number] 02/28/22 10:44 [facility] Document 03/07/22 09:57 [facility] [id number] 03/07/22 10:04 BMF 02/28/22 03/07/22 10:29 09:57 Wound Center Nurse 1 #3 L FOOT 3/4 WEBSPACE -Combined with other wound No No -Current Size (cm) - Length 1.5 2.3 -Current Size (cm) - Width 0.6 1 -Current Size (cm) - Depth 0.1 0.1 -Total Square Cm 0.90 2.3 -Date of Last Picture (Recall this 02/28/22 field) -Photo Taken Yes No -Epithelialization None Present None Present -Tunneling No No -Undermining/Tunneling No No -Circular Undermining No No -Exudate Amt Small Small -Exudate Type Serosanguineous Serous -Wound Margin Flat & Intact Flat & Intact -Granulation Amt Medium (34-66%) Medium (34-66%) -Granulation Quality Red Red -Slough/Fibrin Yes Yes -Necrosis Amt Medium (34-66%) Medium (34-66%) -Necrotic Tissue Type Adherent Slough Adherent Slough -Texture (Nata-wound Skin Appearance) Assessed, Assessed, Scarring Scarring -Moisture (Nata-wound Skin Appearance) Assessed Assessed -Color (Nata-wound Skin Appearance) Assessed, Assessed, Hemosiderin Erythema Staining -Temperature (Nata-wound Skin No Abnormality No Abnormality Appearance) (Pt Warm) (Pt Warm) -Tenderness on Palpation (Nata-wound No No Skin Appearance) -Ulcer Cleansing Rinsed/ Rinsed/ Irrigated with Irrigated with Saline Saline -Foul Odor after Cleansing No No Lower Limb Edema Present Yes Right Calf (cm) 30.6 Right Ankle (cm) 19.8 Left Calf (cm) 30.6 Left Ankle (cm) 19.8 WC - Nurse 2 - General Ulcer CM Notes Start: 02/28/22 09:45 Freq: Status: Active Protocol: Activity Type Activity Date Activity User E-sign Co-sign Detail Recorded Client Recorded Date Recorded By Document 02/28/22 11:12 MW [id number] 02/28/22 11:20 MW Document 03/07/22 10:22 MW [id number] 03/07/22 10:25 MW 02/28/22 03/07/22 11:12 10:22 Wound Center Nurse 2 #3 L FOOT 3/4 WEBSPACE -Time 11:13 10:23 -Correct Patient Yes Yes -Correct Side, Site, Position Yes Yes -Correct Procedure Yes Yes -Procedure Performed Yes Yes -Type of Procedure Debridement Debridement -Clinical Debridement Subcutaneous Subcutaneous -Tissue Removed Subcutaneous Subcutaneous -Post Debridement (cm) - Length 1.7 1.5 -Post Debridement (cm) - Width 1.0 1.0 -Post Debridement (cm) - Depth 0.2 0.2 -Total Square (Post) (cm) 1.70 1.50 -Area of Debridement (cm) - Length 1.7 1.5 -Area of Debridement (cm) - Width 1.0 1.0 -Total Square (Area) (cm) 1.70 1.50 -Tunneling No No -Undermining/Tunneling No No -Circular Undermining No No -Wound/Ulcer Outcome Not Healed Not Healed -Ulcer Cleansing Rinsed/ Rinsed/ Irrigated with Irrigated with Saline Saline -Foul Odor after Cleansing No No -Bioengineered Tissue No No -Bleeding Controlled with Pressure Pressure -Treatment Response Procedure Procedure Tolerated Well Tolerated Well -Offloading No No -Debridement - Subq, 1st 20sq cm Yes Yes Pain Scale: 0-10 Numeric Is Patient Pain Free? Yes Yes WC - Nurse 3 - General Ulcer D/C NN Start: 02/28/22 09:45 Freq: Status: Active Protocol: Activity Type Activity Date Activity User E-sign Co-sign Detail Recorded Client Recorded Date Recorded By Document 02/28/22 11:27 DL [id number] 02/28/22 11:29 DL Document 03/07/22 10:41 [facility] [id number] 03/07/22 10:42 BMF 02/28/22 03/07/22 11:27 10:41 Wound Care Nurse 3 #3 L FOOT 3/4 WEBSPACE -Ulcer Cleansing Rinsed/ Rinsed/ Irrigated with Irrigated with Saline Saline -Foul Odor after Cleansing No No -Primary Dressing Applied Promogran Promogran -Primary Dressing Covered/Secured with Dry Gauze, Dry Gauze, Secured with Secured with Tape Tape -Promogran 1 1 Treatment Response Procedure Procedure Tolerated Well Tolerated Well Pain Scale: 0-10 Numeric Is Patient Pain Free? Yes Yes WC - Visit Discharge Discharge Condition Stable Stable Ambulatory Status Wheelchair Wheelchair Transportation Private Auto Private Auto Assessment/Plan Assessment/Plan (1) Ulcer of left foot with fat layer exposed: CODE(S): L97.522 - Non-pressure chronic ulcer of other part of left foot with fat layer exposed (2) Paraplegia: CODE(S): G82.20 - Paraplegia, unspecified PLAN: Plan Debridement done as documented above, procedure was well-tolerated. No significant change since last visit. Skin substitute approval still pending. Continue Promogran and Adaptic, cover with gauze and tape. Compression, leg elevation, exercise as tolerated, vitamin C, D and zinc discussed. His questions were answered and he was advised to call with any further questions or concerns. Follow-up in a week or sooner if needed. This note was generated with [employer] software. It may contain incorrect words, spelling, and punctuation that were not noted in checking the note before signing.
[2022-03-14 09:57] VITALS: BP 136/63; PULSE 66; RESP 18; TEMP 36.4; BMI 22.3
--- NOTE | 2022-03-14 17:21 | PCM.WC.PN ---
History of Present Illness Date of Service: 03/14/22 Chief Complaint: Left Foot Ulcer History of Wound: Mr. Bailey is a 36 yo who presents to the wound center due to non healing left foot ulcer. Noted initially in October/November, he denies any known precipitating factor. History of Paraplegia and has no feeling in his feet. He has been seeing Podiatry at the [facility]. Has had some debridement done and has been applying Megan without any significant improvement. He denies any significant drainage. No chills, fever or feeling of unwell. Progress of Wound: No improvement. Now approved for epi fix. Objective Data Objective Data Vital Signs: Vital Signs Temp Pulse Resp BP O2 Del Method 97.5 F L 66 18 136/63 H Room Air 03/14/22 09:57 03/14/22 09:57 03/14/22 09:57 03/14/22 09:57 03/07/22 09:57 Oxygen Delivery Method Room Air Weight: 160 lb Body Mass Index (BMI) 22.3 Charges/Coding Procedures Integumentary 150xxx-152xx: 88234 Skin sub graft trnk/arm/leg Physical Exam Const alert, oriented x3 and no apparent distress General Appearance: cooperative and comfortable HEENT normocephalic, head/scalp atraumatic and hearing grossly normal bilaterally Eyes EOMs intact bilaterally Neck full ROM and supple General: normal visual inspection Resp normal respiratory effort Effort and Inspection: able to speak in complete sentences Skin Wounds: wounds noted Neuro oriented x3 and CN's II-XII intact bilaterally Psych mental status grossly normal, thought process normal, cooperative, affect normal and speech normal Debridement Note Debridement Note Wound debrided: Left dorsal foot Type of Debridement: Excisional debridement Anesthesia Used: 4% Lidocaine Solution Depth: Down to and including healthy tissue and in the subcutaneous layer Percentage of wound debrided: 100 Instrument Used: 3mm curette Tissue Removed: Slough and devitalized tissue Severity: Fat Layer Exposed Amount of bleeding with debridement: Mild Bleeding Controlled with: Pressure Patient tolerated procedure: Patient tolerated procedure well Post-Debridement Measurements and Additional Note: Post-Debridement Measurements/Treatment SRUTHI - Nurse 1 - General Ulcer Assessment Start: 02/28/22 09:45 Freq: Status: Active Protocol: ADEEL Activity Type Activity Date Activity User E-sign Co-sign Detail Recorded Client Recorded Date Recorded By Document 02/28/22 10:29 [facility] [id number] 02/28/22 10:44 BM Document 03/07/22 09:57 BMF [id number] 03/07/22 10:04 BMF Document 03/14/22 09:57 DL [id number] 03/14/22 10:06 DL 02/28/22 03/07/22 03/14/22 10:29 09:57 09:57 WC - Today's Visit Information Type of service Initial Visit Follow-up Visit Follow-up Visit (Physician/NURSE SPECIALIST (Physician/NURSE SPECIALIST ) ) Arrival Mode Wheelchair Wheelchair Wheelchair Transfer Assistance None None None Accompanied by girlfriend girlfriend Patient Identification Verified (Name & Yes Yes Yes ) Patient Requires Transmission-Based No No No Precautions Height and Weight Height 5 ft 11 in Weight 160 lb Weight in Pounds 160.0 lbs Weight Measurement Method Estimated by Patient Body Mass Index (BMI) 22.3 22.3 22.3 BMI Classification Normal Normal Normal BSA - Dylan 1.92 Vital Signs Temperature (97.8 F-99.1 F) 96.7 F L 96.9 F L 97.5 F L Temperature Source Temporal Temporal Temporal Pulse Rate (60-100) 68 61 66 Pulse Location Monitor Monitor Monitor Respiratory Rate (12-18) 16 16 18 Respiratory rate source Observation Observation Observation Oxygen Delivery Method Room Air Room Air Blood Pressure (90/60-120/80) 126/63 H 138/87 H 136/63 H Blood Pressure Mean (mm Hg) 84 104 87 Source Monitor Monitor Monitor Position Sitting Sitting Blood Pressure Location Left Arm Left Arm History Since Last Visit- (Skip if this is Patient's initial visit) Have you changed medications since your No No last visit? Any new allergies or adverse reactions No No Had a fall/change in ADL's that may No No increase risk of falls Signs or symptoms of abuse and/or No No neglect since last visit Have you been in the hospital since your No No last visit? Has dressing in place as prescribed Yes Yes Has compression in place as prescribed N/A Yes Has offloadiing in place as prescribed N/A Yes Experienced any changes in pain level or No No management Left Footwear Regular Shoe Regular Shoe Right Footwear Regular Shoe Regular Shoe Pain Scale: 0-10 Numeric Is Patient Pain Free? 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 Able to Read Yes Able to Write Yes Communication Tools None Right Hearing Abillity Normal Left Hearing Abillity Normal Visual Assistive Devices None Teaching Assessment Preferences Verbal,Written, Audio/Visual, Demonstration Barriers to Learning None Readiness To Learn Excellent Willingness to Engage in Self Management High Activies Readiness to Engage in Self Management High Activities Anxiety Level Calm Cooperation Cooperative Perception Coherent Interest in Health Problem Asks Questions Education Importance Acknowledges Need Smoking Status Never smoker Is Patient Diabetic No Functional Assessment Recent Decline in Ability to Perform Denies Any Declines Culture/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 Cultural/Rastafarian Needs that may affect No Treatment Plan Teaching: Wound Center *Welcome to the Wound Center -Person Taught Patient, Significant Other -Teaching Method Discussion -Response to teaching Verbalize understanding Welcome to the Wound Care Center English NEGRO - Nurse 1 - General Ulcer Measurement Start: 02/28/22 09:45 Freq: Status: Active Protocol: Activity Type Activity Date Activity User E-sign Co-sign Detail Recorded Client Recorded Date Recorded By Document 02/28/22 10:29 [facility] [id number] 02/28/22 10:44 [facility] Document 03/07/22 09:57 [facility] [id number] 03/07/22 10:04 [facility] Document 03/14/22 09:57 [id number] 03/14/22 10:06 DL 02/28/22 03/07/22 03/14/22 10:29 09:57 09:57 Wound Center Nurse 1 #3 L FOOT 3/4 WEBSPACE -Combined with other wound No No -Current Size (cm) - Length 1.5 2.3 1.7 -Current Size (cm) - Width 0.6 1 1 -Current Size (cm) - Depth 0.1 0.1 0.1 -Total Square Cm 0.90 2.3 1.7 -Date of Last Picture (Recall this 02/28/22 field) -Photo Taken Yes No Yes -Epithelialization None Present None Present -Tunneling No No -Undermining/Tunneling No No -Circular Undermining No No -Exudate Amt Small Small Medium -Exudate Type Serosanguineous Serous Serosanguineous -Wound Margin Flat & Intact Flat & Intact Distinct, Outline Attached -Granulation Amt Medium (34-66%) Medium (34-66%) Medium (34-66%) -Granulation Quality Red Red Red -Slough/Fibrin Yes Yes -Necrosis Amt Medium (34-66%) Medium (34-66%) Medium (34-66%) -Necrotic Tissue Type Adherent Slough Adherent Slough Adherent Slough -Structure Exposed N/A -Texture (Nata-wound Skin Appearance) Assessed, Assessed, Scarring Scarring Scarring -Moisture (Nata-wound Skin Appearance) Assessed Assessed No Abnormality -Color (Nata-wound Skin Appearance) Assessed, Assessed, Hemosiderin Hemosiderin Erythema Staining Staining -Temperature (Nata-wound Skin No Abnormality No Abnormality No Abnormality Appearance) (Pt Warm) (Pt Warm) (Pt Warm) -Tenderness on Palpation (Nata-wound No No No Skin Appearance) -Ulcer Cleansing Rinsed/ Rinsed/ Soap and Water Irrigated with Irrigated with Saline Saline -Foul Odor after Cleansing No No No -Anesthetic Used 4% Lidocaine Solution Lower Limb Edema Present Yes Right Calf (cm) 30.6 Right Ankle (cm) 19.8 Left Calf (cm) 30.6 Left Ankle (cm) 19.8 WC - Nurse 2 - General Ulcer CM Notes Start: 02/28/22 09:45 Freq: Status: Active Protocol: Activity Type Activity Date Activity User E-sign Co-sign Detail Recorded Client Recorded Date Recorded By Document 02/28/22 11:12 MW [id number] 02/28/22 11:20 MW Document 03/07/22 10:22 MW [id number] 03/07/22 10:25 MW Document 03/14/22 10:17 MW [id number] 03/14/22 10:26 MW 02/28/22 03/07/22 03/14/22 11:12 10:22 10:17 Wound Center Nurse 2 #3 L FOOT 3/4 WEBSPACE -Time 11:13 10:23 10:18 -Correct Patient Yes Yes Yes -Correct Side, Site, Position Yes Yes Yes -Correct Procedure Yes Yes Yes -Procedure Performed Yes Yes Yes -Type of Procedure Debridement Debridement Debridement -Clinical Debridement Subcutaneous Subcutaneous Subcutaneous -Tissue Removed Subcutaneous Subcutaneous Subcutaneous -Post Debridement (cm) - Length 1.7 1.5 1.7 -Post Debridement (cm) - Width 1.0 1.0 1.1 -Post Debridement (cm) - Depth 0.2 0.2 0.1 -Total Square (Post) (cm) 1.70 1.50 1.87 -Area of Debridement (cm) - Length 1.7 1.5 1.7 -Area of Debridement (cm) - Width 1.0 1.0 1.1 -Total Square (Area) (cm) 1.70 1.50 1.87 -Tunneling No No No -Undermining/Tunneling No No No -Circular Undermining No No No -Wound/Ulcer Outcome Not Healed Not Healed Not Healed -Ulcer Cleansing Rinsed/ Rinsed/ Rinsed/ Irrigated with Irrigated with Irrigated with Saline Saline Saline -Foul Odor after Cleansing No No No -Bioengineered Tissue No No Yes -Type of Bioengineered Tissue Epifix 18mm Disc -Expiration Date 11/21/26 -Product Lot Number [id number] -Percent Used 100 -Lot number of Saline Used [id number] -Bleeding Controlled with Pressure Pressure Pressure -Treatment Response Procedure Procedure Procedure Tolerated Well Tolerated Well Tolerated Well -Offloading No No No -Debridement - Subq, 1st 20sq cm Yes Yes No -Apply Skin Sub - 1st 25 sq cm - Feet 1 -Epifix 18mm Disc 3 Pain Scale: 0-10 Numeric Is Patient Pain Free? Yes Yes Yes - Nurse 3 - General Ulcer D/C NN Start: 02/28/22 09:45 Freq: Status: Active Protocol: Activity Type Activity Date Activity User E-sign Co-sign Detail Recorded Client Recorded Date Recorded By Document 02/28/22 11:27 DL [id number] 02/28/22 11:29 DL Document 03/07/22 10:41 [facility] [id number] 03/07/22 10:42 BM Document 03/14/22 10:28 DL [id number] 03/14/22 10:30 DL 02/28/22 03/07/22 03/14/22 11:27 10:41 10:28 Wound Care Nurse 3 #3 L FOOT 3/4 WEBSPACE -Ulcer Cleansing Rinsed/ Rinsed/ Irrigated with Irrigated with Saline Saline -Foul Odor after Cleansing No No No -Primary Dressing Applied Promogran Promogran -Other Dressing Epifix -Primary Dressing Covered/Secured with Dry Gauze, Dry Gauze, Dry Gauze & Secured with Secured with Roll Gauze, Tape Tape Secured with Tape -Other Covering Stocking -Promogran 1 1 Treatment Response Procedure Procedure Procedure Tolerated Well Tolerated Well Tolerated Well Pain Scale: 0-10 Numeric Is Patient Pain Free? Yes Yes Yes WC - Visit Discharge Discharge Condition Stable Stable Stable Ambulatory Status Wheelchair Wheelchair Stretcher Transportation Private Auto Private Auto Private Auto Assessment/Plan Assessment/Plan (1) Ulcer of left foot with fat layer exposed: CODE(S): L97.522 - Non-pressure chronic ulcer of other part of left foot with fat layer exposed (2) Paraplegia: CODE(S): G82.20 - Paraplegia, unspecified PLAN: Plan Debridement done as documented above, procedure was well-tolerated. No significant change since last visit. Initial application of epi fix done today using 100% of product. Moistened with saline, covered with wound veil and secured with Steri-Strips. Leave in place for a week. Compression, leg elevation, exercise as tolerated, vitamin C, D and zinc discussed. His questions were answered and he was advised to call with any further questions or concerns. Follow-up in a week or sooner if needed. This note was generated with [employer] dictation software. It may contain incorrect words, spelling, and punctuation that were not noted in checking the note before signing.
[2022-03-21 09:50] VITALS: BP 153/85; PULSE 74; RESP 16; TEMP 37; BMI 22.3
--- NOTE | 2022-03-21 11:13 | PN.PCM_ITS ---
History of Present Illness Date of Service: 03/21/22 Chief Complaint: Left Foot Ulcer History of Wound: Mr. Bailey is a 36 yo who presents to the wound center due to non healing left foot ulcer. Noted initially in October/November, he denies any known precipitating factor. History of Paraplegia and has no feeling in his feet. He has been seeing Podiatry at the [facility]. Has had some debridement done and has been applying Megan without any significant improvement. He denies any significant drainage. No chills, fever or feeling of unwell. Progress of Wound: Has had 1 application of epi fix. No new concerns at this time. Objective Data Objective Data Vital Signs: Vital Signs Temp Pulse Resp BP O2 Del Method 98.6 F 74 16 153/85 H Room Air 03/21/22 09:50 03/21/22 09:50 03/21/22 09:50 03/21/22 09:50 03/21/22 09:50 Oxygen Delivery Method Room Air Weight: 160 lb Body Mass Index (BMI) 22.3 Charges/Coding Procedures Integumentary 150xxx-152xx: 66720 Skin sub graft trnk/arm/leg Physical Exam Const alert, oriented x3 and no apparent distress General Appearance: cooperative and comfortable HEENT normocephalic, head/scalp atraumatic and hearing grossly normal bilaterally Eyes EOMs intact bilaterally Neck full ROM and supple General: normal visual inspection Resp normal respiratory effort Effort and Inspection: able to speak in complete sentences Skin Wounds: wounds noted Neuro oriented x3 and CN's II-XII intact bilaterally Psych mental status grossly normal, thought process normal, cooperative, affect normal and speech normal Debridement Note Debridement Note Wound debrided: Left foot Type of Debridement: Excisional debridement Anesthesia Used: 4% Lidocaine Solution Depth: Down to and including healthy tissue and in the subcutaneous layer Percentage of wound debrided: 100 Instrument Used: 5mm curette Severity: Fat Layer Exposed Amount of bleeding with debridement: Mild Bleeding Controlled with: Pressure Patient tolerated procedure: Patient tolerated procedure well Post-Debridement Measurements and Additional Note: Post-Debridement Measurements/Treatment WC - Nurse 1 - General Ulcer Assessment Start: 02/28/22 09:45 Freq: Status: Active Protocol: ADEEL Activity Type Activity Date Activity User E-sign Co-sign Detail Recorded Client Recorded Date Recorded By Document 02/28/22 10:29 BMF [id number] 02/28/22 10:44 BMF Document 03/07/22 09:57 BMF [id number] 03/07/22 10:04 BMF Document 03/14/22 09:57 DL [id number] 03/14/22 10:06 DL Document 03/21/22 09:50 BMF [id number] 03/21/22 09:59 BMF 02/28/22 03/07/22 03/14/22 10:29 09:57 09:57 WC - Today's Visit Information Type of service Initial Visit Follow-up Visit Follow-up Visit (Physician/LANDSCAPE FOREMAN (Physician/LANDSCAPE FOREMAN ) ) Arrival Mode Wheelchair Wheelchair Wheelchair Transfer Assistance None None None Accompanied by girlfriend girlfriend Patient Identification Verified (Name & Yes Yes Yes ) Patient Requires Transmission-Based No No No Precautions Height and Weight Height 5 ft 11 in Weight 160 lb Weight in Pounds 160.0 lbs Weight Measurement Method Estimated by Patient Body Mass Index (BMI) 22.3 22.3 22.3 BMI Classification Normal Normal Normal BSA - Dylan 1.92 Vital Signs Temperature (97.8 F-99.1 F) 96.7 F L 96.9 F L 97.5 F L Temperature Source Temporal Temporal Temporal Pulse Rate (60-100) 68 61 66 Pulse Location Monitor Monitor Monitor Respiratory Rate (12-18) 16 16 18 Respiratory rate source Observation Observation Observation Oxygen Delivery Method Room Air Room Air Blood Pressure (90/60-120/80) 126/63 H 138/87 H 136/63 H Blood Pressure Mean (mm Hg) 84 104 87 Source Monitor Monitor Monitor Position Sitting Sitting Blood Pressure Location Left Arm Left Arm History Since Last Visit- (Skip if this is Patient's initial visit) Have you changed medications since your No No last visit? Any new allergies or adverse reactions No No Had a fall/change in ADL's that may No No increase risk of falls Signs or symptoms of abuse and/or No No neglect since last visit Have you been in the hospital since your No No last visit? Has dressing in place as prescribed Yes Yes Has compression in place as prescribed N/A Yes Has offloadiing in place as prescribed N/A Yes Experienced any changes in pain level or No No management Left Footwear Regular Shoe Regular Shoe Right Footwear Regular Shoe Regular Shoe Pain Scale: 0-10 Numeric Is Patient Pain Free? Yes Yes Yes Lower Extremity Assessment/ Foot Assessment/ Toe Nail Assessment Right -Lower Extremity Comment (If N/A Above PTHAD RECENT ) ARTERIAL STUDIES AT [facility] Left -Lower Extremity Comment (If N/A Above PT HAD RECENT ) ARTERIAL STUDIES AT [facility] Communication Assessment Preferred language Algerian Oral Pathologist Required No Able to Read Yes Able to Write Yes Communication Tools None Right Hearing Abillity Normal Left Hearing Abillity Normal Visual Assistive Devices None Teaching Assessment Preferences Verbal,Written, Audio/Visual, Demonstration Barriers to Learning None Readiness To Learn Excellent Willingness to Engage in Self Management High Activies Readiness to Engage in Self Management High Activities Anxiety Level Calm Cooperation Cooperative Perception Coherent Interest in Health Problem Asks Questions Education Importance Acknowledges Need Smoking Status Never smoker Is Patient Diabetic No Functional Assessment Recent Decline in Ability to Perform Denies Any Declines Culture/Jain/Communications Equipment Operator Cultural/Jain Needs that may affect No Treatment Plan Teaching: Wound Center *Welcome to the Wound Center -Person Taught Patient, Significant Other -Teaching Method Discussion -Response to teaching Verbalize understanding Welcome to the Wound Care Center Algerian 03/21/22 09:50 WC - Today's Visit Information Type of service Follow-up Visit (Physician/LANDSCAPE FOREMAN ) Arrival Mode Wheelchair Transfer Assistance None Accompanied by Patient Identification Verified (Name & Yes ) Patient Requires Transmission-Based No Precautions Height and Weight Height Weight Weight in Pounds Weight Measurement Method Body Mass Index (BMI) 22.3 BMI Classification Normal BSA - Dylan Vital Signs Temperature (97.8 F-99.1 F) 98.6 F Temperature Source Temporal Pulse Rate (60-100) 74 Pulse Location Monitor Respiratory Rate (12-18) 16 Respiratory rate source Observation Oxygen Delivery Method Room Air Blood Pressure (90/60-120/80) 153/85 H Blood Pressure Mean (mm Hg) 107 Source Monitor Position Sitting Blood Pressure Location Right Forearm History Since Last Visit- (Skip if this is Patient's initial visit) Have you changed medications since your No last visit? Any new allergies or adverse reactions No Had a fall/change in ADL's that may No increase risk of falls Signs or symptoms of abuse and/or No neglect since last visit Have you been in the hospital since your No last visit? Has dressing in place as prescribed Yes Has compression in place as prescribed N/A Has offloadiing in place as prescribed N/A Experienced any changes in pain level or No management Left Footwear Regular Shoe Right Footwear Regular Shoe Pain Scale: 0-10 Numeric Is Patient Pain Free? Yes Lower Extremity Assessment/ Foot Assessment/ Toe Nail Assessment Right -Lower Extremity Comment (If N/A Above ) Left -Lower Extremity Comment (If N/A Above ) Communication Assessment Preferred foreign language teacher Required Able to Read Able to Write Communication Tools Right Hearing Abillity Left Hearing Abillity Visual Assistive Devices Teaching Assessment Preferences Barriers to Learning Readiness To Learn Willingness to Engage in Self Management Activies Readiness to Engage in Self Management Activities Anxiety Level Cooperation Perception Interest in Health Problem Education Importance Smoking Status Is Patient Diabetic Functional Assessment Recent Decline in Ability to Perform Culture/Jain/Communications Equipment Operator Cultural/Jain Needs that may affect Treatment Plan Teaching: Wound Center *Welcome to the Wound Center -Person Taught -Teaching Method -Response to teaching Welcome to the Wound Care Center WC - Nurse 1 - General Ulcer Measurement Start: 02/28/22 09:45 Freq: Status: Active Protocol: Activity Type Activity Date Activity User E-sign Co-sign Detail Recorded Client Recorded Date Recorded By Document 02/28/22 10:29 [facility] [id number] 02/28/22 10:44 [facility] Document 03/07/22 09:57 [facility] [id number] 03/07/22 10:04 [facility] Document 03/14/22 09:57 DL [id number] 03/14/22 10:06 DL Document 03/21/22 09:50 [facility] [id number] 03/21/22 09:59 [facility] 02/28/22 03/07/22 03/14/22 10:29 09:57 09:57 Wound Center Nurse 1 #3 L FOOT 3/4 WEBSPACE -Combined with other wound No No -Current Size (cm) - Length 1.5 2.3 1.7 -Current Size (cm) - Width 0.6 1 1 -Current Size (cm) - Depth 0.1 0.1 0.1 -Total Square Cm 0.90 2.3 1.7 -Date of Last Picture (Recall this 02/28/22 field) -Photo Taken Yes No Yes -Epithelialization None Present None Present -Tunneling No No -Undermining/Tunneling No No -Circular Undermining No No -Exudate Amt Small Small Medium -Exudate Type Serosanguineous Serous Serosanguineous -Wound Margin Flat & Intact Flat & Intact Distinct, Outline Attached -Granulation Amt Medium (34-66%) Medium (34-66%) Medium (34-66%) -Granulation Quality Red Red Red -Slough/Fibrin Yes Yes -Necrosis Amt Medium (34-66%) Medium (34-66%) Medium (34-66%) -Necrotic Tissue Type Adherent Slough Adherent Slough Adherent Slough -Structure Exposed N/A -Texture (Nata-wound Skin Appearance) Assessed, Assessed, Scarring Scarring Scarring -Moisture (Nata-wound Skin Appearance) Assessed Assessed No Abnormality -Color (Nata-wound Skin Appearance) Assessed, Assessed, Hemosiderin Hemosiderin Erythema Staining Staining -Temperature (Nata-wound Skin No Abnormality No Abnormality No Abnormality Appearance) (Pt Warm) (Pt Warm) (Pt Warm) -Tenderness on Palpation (Nata-wound No No No Skin Appearance) -Ulcer Cleansing Rinsed/ Rinsed/ Soap and Water Irrigated with Irrigated with Saline Saline -Foul Odor after Cleansing No No No -Anesthetic Used 4% Lidocaine Solution Lower Limb Edema Present Yes Right Calf (cm) 30.6 Right Ankle (cm) 19.8 Left Calf (cm) 30.6 Left Ankle (cm) 19.8 03/21/22 09:50 Wound Center Nurse 1 #3 L FOOT 3/4 WEBSPACE -Combined with other wound No -Current Size (cm) - Length 1.7 -Current Size (cm) - Width 1 -Current Size (cm) - Depth 0.8 -Total Square Cm 1.7 -Date of Last Picture (Recall this 03/21/22 field) -Photo Taken Yes -Epithelialization None Present -Tunneling No -Undermining/Tunneling No -Circular Undermining No -Exudate Amt Small -Exudate Type Serosanguineous -Wound Margin Flat & Intact -Granulation Amt None Present (0 %) -Granulation Quality -Slough/Fibrin Yes -Necrosis Amt Large (67-100%) -Necrotic Tissue Type Eschar -Structure Exposed -Texture (Nata-wound Skin Appearance) Assessed, Scarring -Moisture (Nata-wound Skin Appearance) Assessed -Color (Nata-wound Skin Appearance) Assessed -Temperature (Nata-wound Skin No Abnormality Appearance) (Pt Warm) -Tenderness on Palpation (Nata-wound No Skin Appearance) -Ulcer Cleansing Soap and Water -Foul Odor after Cleansing No -Anesthetic Used Lower Limb Edema Present Right Calf (cm) Right Ankle (cm) Left Calf (cm) Left Ankle (cm) WC - Nurse 2 - General Ulcer CM Notes Start: 02/28/22 09:45 Freq: Status: Active Protocol: Activity Type Activity Date Activity User E-sign Co-sign Detail Recorded Client Recorded Date Recorded By Document 02/28/22 11:12 MW [id number] 02/28/22 11:20 MW Document 03/07/22 10:22 MW [id number] 03/07/22 10:25 MW Document 03/14/22 10:17 MW [id number] 03/14/22 10:26 MW Document 03/21/22 10:25 MW [id number] 03/21/22 10:36 MW 02/28/22 03/07/22 03/14/22 11:12 10:22 10:17 Wound Center Nurse 2 #3 L FOOT 3/4 WEBSPACE -Time 11:13 10:23 10:18 -Correct Patient Yes Yes Yes -Correct Side, Site, Position Yes Yes Yes -Correct Procedure Yes Yes Yes -Procedure Performed Yes Yes Yes -Type of Procedure Debridement Debridement Debridement -Clinical Debridement Subcutaneous Subcutaneous Subcutaneous -Tissue Removed Subcutaneous Subcutaneous Subcutaneous -Post Debridement (cm) - Length 1.7 1.5 1.7 -Post Debridement (cm) - Width 1.0 1.0 1.1 -Post Debridement (cm) - Depth 0.2 0.2 0.1 -Total Square (Post) (cm) 1.70 1.50 1.87 -Area of Debridement (cm) - Length 1.7 1.5 1.7 -Area of Debridement (cm) - Width 1.0 1.0 1.1 -Total Square (Area) (cm) 1.70 1.50 1.87 -Tunneling No No No -Undermining/Tunneling No No No -Circular Undermining No No No -Wound/Ulcer Outcome Not Healed Not Healed Not Healed -Ulcer Cleansing Rinsed/ Rinsed/ Rinsed/ Irrigated with Irrigated with Irrigated with Saline Saline Saline -Foul Odor after Cleansing No No No -Bioengineered Tissue No No Yes -Type of Bioengineered Tissue Epifix 18mm Disc -Expiration Date 11/21/26 -Product Lot Number [id number] -Percent Used 100 -Lot number of Saline Used [id number] -Bleeding Controlled with Pressure Pressure Pressure -Treatment Response Procedure Procedure Procedure Tolerated Well Tolerated Well Tolerated Well -Offloading No No No -Debridement - Subq, 1st 20sq cm Yes Yes No -Apply Skin Sub - 1st 25 sq cm - Feet 1 -Epifix 18mm Disc 3 Pain Scale: 0-10 Numeric Is Patient Pain Free? Yes Yes Yes 03/21/22 10:25 Wound Center Nurse 2 #3 L FOOT 3/4 WEBSPACE -Time 10:26 -Correct Patient Yes -Correct Side, Site, Position Yes -Correct Procedure Yes -Procedure Performed Yes -Type of Procedure Debridement -Clinical Debridement Subcutaneous -Tissue Removed Subcutaneous -Post Debridement (cm) - Length 1.7 -Post Debridement (cm) - Width 0.9 -Post Debridement (cm) - Depth 0.1 -Total Square (Post) (cm) 1.53 -Area of Debridement (cm) - Length 1.7 -Area of Debridement (cm) - Width 0.9 -Total Square (Area) (cm) 1.53 -Tunneling No -Undermining/Tunneling No -Circular Undermining No -Wound/Ulcer Outcome Not Healed -Ulcer Cleansing Rinsed/ Irrigated with Saline -Foul Odor after Cleansing No -Bioengineered Tissue Yes -Type of Bioengineered Tissue Epifix 18mm Disc -Expiration Date 11/21/26 -Product Lot Number [id number] -Percent Used 100 -Lot number of Saline Used [id number] -Bleeding Controlled with Pressure -Treatment Response Procedure Tolerated Well -Offloading No -Debridement - Subq, 1st 20sq cm No -Apply Skin Sub - 1st 25 sq cm - Feet 1 -Epifix 18mm Disc 3 Pain Scale: 0-10 Numeric Is Patient Pain Free? Yes WC - Nurse 3 - General Ulcer D/C NN Start: 02/28/22 09:45 Freq: Status: Active Protocol: Activity Type Activity Date Activity User E-sign Co-sign Detail Recorded Client Recorded Date Recorded By Document 02/28/22 11:27 DL [id number] 02/28/22 11:29 DL Document 03/07/22 10:41 [facility] [id number] 03/07/22 10:42 [facility] Document 03/14/22 10:28 DL [id number] 03/14/22 10:30 Document 03/21/22 10:41 OR [id number] 03/21/22 10:43 OR 02/28/22 03/07/22 03/14/22 11:27 10:41 10:28 Wound Care Nurse 3 #3 L FOOT 3/4 WEBSPACE -Ulcer Cleansing Rinsed/ Rinsed/ Irrigated with Irrigated with Saline Saline -Foul Odor after Cleansing No No No -Primary Dressing Applied Promogran Promogran -Other Dressing Epifix -Primary Dressing Covered/Secured with Dry Gauze, Dry Gauze, Dry Gauze & Secured with Secured with Roll Gauze, Tape Tape Secured with Tape -Other Covering Stocking -Promogran 1 1 Left -Stockings -Other Treatment Response Procedure Procedure Procedure Tolerated Well Tolerated Well Tolerated Well Pain Scale: 0-10 Numeric Is Patient Pain Free? Yes Yes Yes WC - Visit Discharge Discharge Condition Stable Stable Stable Ambulatory Status Wheelchair Wheelchair Stretcher Transportation Private Auto Private Auto Private Auto Medication Reconcilliation completed & provided to patient/care provider Clinical Summary of Care Provided 03/21/22 10:41 Wound Care Nurse 3 #3 L FOOT 3/4 WEBSPACE -Ulcer Cleansing -Foul Odor after Cleansing -Primary Dressing Applied -Other Dressing -Primary Dressing Covered/Secured with Dry Gauze, Secured with Tape -Other Covering -Promogran Left -Stockings Yes -Other pt has comp stocking at home Treatment Response Pain Scale: 0-10 Numeric Is Patient Pain Free? Yes WC - Visit Discharge Discharge Condition Stable Ambulatory Status Wheelchair Transportation Private Auto Medication Reconcilliation completed & No provided to patient/care provider Clinical Summary of Care Provided Yes Assessment/Plan Assessment/Plan (1) Ulcer of left foot with fat layer exposed: CODE(S): L97.522 - Non-pressure chronic ulcer of other part of left foot with fat layer exposed (2) Paraplegia: CODE(S): G82.20 - Paraplegia, unspecified PLAN: Plan Debridement done as documented above, procedure was well-tolerated. Second application of epi fix done today using 100% of product. Moistened with saline, covered with wound veil and secured with Steri-Strips. Leave in place for a week. Compression, leg elevation, exercise as tolerated, vitamin C, D and zinc discussed. His questions were answered and he was advised to call with any further questions or concerns. Follow-up in a week or sooner if needed. This note was generated with [employer] dictation software. It may contain incorrect words, spelling, and punctuation that were not noted in checking the note before signing.
== END 2022-03-22 23:59 | disposition home or self-care (01) ==
LOC: WC 09:45
PROVIDERS: PCP Family Medicine; Visit Provider Internal Medicine
DX: L97.522 Non-pressure chronic ulcer of other part of left foot with fat layer exposed (principal); G82.20 Paraplegia, unspecified; R60.0 Localized edema; Z79.1 Long term (current) use of non-steroidal anti-inflammatories (NSAID); Z79.899 Other long term (current) drug therapy
CPT/HCPCS: 11042; 15275; 99213; Q4186; G0463

== ENCOUNTER 2022-04-18 09:30 | Outpatient (RCR) | payer MEDICARE, MEDICAID, SELFPAY ==
[2022-03-23 01:44] VITALS: BP 153/85; PULSE 74; RESP 16; TEMP 37; BMI 22.3
[2022-03-28 09:43] VITALS: BP 130/79; PULSE 105; RESP 16; TEMP 35.9; BMI 22.3
--- NOTE | 2022-03-28 10:21 | PCM.WC.PN ---
History of Present Illness Date of Service: 03/28/22 Chief Complaint: Left Foot Ulcer History of Wound: Mr. Bailey is a 36 yo who presents to the wound center due to non healing left foot ulcer. Noted initially in October/November, he denies any known precipitating factor. History of Paraplegia and has no feeling in his feet. He has been seeing Podiatry at the [facility]. Has had some debridement done and has been applying Megan without any significant improvement. He denies any significant drainage. No chills, fever or feeling of unwell. Progress of Wound: Has had 2 applications of epi fix so far. Increased drainage over the last week. Objective Data Objective Data Vital Signs: Vital Signs Temp Pulse Resp BP O2 Del Method 96.7 F L 105 H 16 130/79 H Room Air 03/28/22 09:43 03/28/22 09:43 03/28/22 09:43 03/28/22 09:43 03/28/22 09:43 Oxygen Delivery Method Room Air Weight: 160 lb Body Mass Index (BMI) 22.3 Charges/Coding Procedures Integumentary 150xxx-152xx: 69586 Skin sub graft trnk/arm/leg Physical Exam Const alert, oriented x3 and no apparent distress General Appearance: cooperative and comfortable HEENT normocephalic, head/scalp atraumatic and hearing grossly normal bilaterally Eyes EOMs intact bilaterally Neck full ROM and supple General: normal visual inspection Resp normal respiratory effort Effort and Inspection: able to speak in complete sentences Skin Wounds: wounds noted Neuro oriented x3 and CN's II-XII intact bilaterally Psych mental status grossly normal, thought process normal, cooperative, affect normal and speech normal Debridement Note Debridement Note Wound debrided: Left foot (dorsal) Type of Debridement: Excisional debridement Anesthesia Used: 4% Lidocaine Solution Depth: Down to and including healthy tissue and in the subcutaneous layer Percentage of wound debrided: 100 Instrument Used: 5mm curette Tissue Removed: Slough and devitalized tissue Severity: Fat Layer Exposed Amount of bleeding with debridement: Mild Bleeding Controlled with: Pressure Post-Debridement Measurements and Additional Note: Post-Debridement Measurements/Treatment SRUTHI - Nurse 1 - General Ulcer Assessment Start: 03/28/22 09:43 Freq: Status: Active Protocol: ADEEL Activity Type Activity Date Activity User E-sign Co-sign Detail Recorded Client Recorded Date Recorded By Document 03/28/22 09:43 [facility] [id number] 03/28/22 09:50 [facility] 03/28/22 09:43 - Today's Visit Information Type of service Follow-up Visit (Physician/FINAL OPERATIONS TECHNICIAN ) Arrival Mode Wheelchair Transfer Assistance None Accompanied by girlfriend Patient Identification Verified (Name & Yes ) Patient Requires Transmission-Based No Precautions Height and Weight Body Mass Index (BMI) 22.3 BMI Classification Normal Vital Signs Temperature (97.8 F-99.1 F) 96.7 F L Temperature Source Temporal Pulse Rate (60-100) 105 H Pulse Location Monitor Respiratory Rate (12-18) 16 Respiratory rate source Observation Oxygen Delivery Method Room Air Blood Pressure (90/60-120/80) 130/79 H Blood Pressure Mean (mm Hg) 96 Source Monitor Position Sitting Blood Pressure Location Left Arm History Since Last Visit- (Skip if this is Patient's initial visit) Have you changed medications since your No last visit? Any new allergies or adverse reactions No Had a fall/change in ADL's that may No increase risk of falls Signs or symptoms of abuse and/or No neglect since last visit Have you been in the hospital since your No last visit? Has dressing in place as prescribed Yes Has compression in place as prescribed N/A Has offloadiing in place as prescribed N/A Experienced any changes in pain level or No management Left Footwear Regular Shoe Right Footwear Regular Shoe Pain Scale: 0-10 Numeric Is Patient Pain Free? Yes - Nurse 1 - General Ulcer Measurement Start: 03/28/22 09:43 Freq: Status: Active Protocol: Activity Type Activity Date Activity User E-sign Co-sign Detail Recorded Client Recorded Date Recorded By Document 03/28/22 09:43 [facility] [id number] 03/28/22 09:50 [facility] 03/28/22 09:43 Wound Center Nurse 1 #3 L FOOT 3/4 WEBSPACE -Combined with other wound No -Current Size (cm) - Length 1.7 -Current Size (cm) - Width 1.1 -Current Size (cm) - Depth 0.1 -Total Square Cm 1.87 -Date of Last Picture (Recall this 03/28/22 field) -Photo Taken Yes -Epithelialization None Present -Tunneling No -Undermining/Tunneling No -Circular Undermining No -Exudate Amt Large -Exudate Type Serosanguineous -Wound Margin Flat & Intact -Granulation Amt None Present (0 %) -Slough/Fibrin Yes -Necrosis Amt Large (67-100%) -Necrotic Tissue Type Eschar -Texture (Nata-wound Skin Appearance) Assessed, Scarring -Moisture (Nata-wound Skin Appearance) Assessed, Maceration -Color (Nata-wound Skin Appearance) Assessed, Erythema -Temperature (Nata-wound Skin No Abnormality Appearance) (Pt Warm) -Tenderness on Palpation (Nata-wound No Skin Appearance) -Ulcer Cleansing Soap and Water -Foul Odor after Cleansing No WC - Nurse 2 - General Ulcer CM Notes Start: 03/28/22 09:43 Freq: Status: Active Protocol: Activity Type Activity Date Activity User E-sign Co-sign Detail Recorded Client Recorded Date Recorded By Document 03/28/22 10:03 MW [id number] 03/28/22 10:11 MW 03/28/22 10:03 Wound Center Nurse 2 -Time 10:03 -Correct Patient Yes -Correct Side, Site, Position Yes -Correct Procedure Yes -Procedure Performed Yes -Type of Procedure Debridement -Clinical Debridement Subcutaneous -Tissue Removed Subcutaneous -Post Debridement (cm) - Length 2.0 -Post Debridement (cm) - Width 1.8 -Post Debridement (cm) - Depth 0.1 -Total Square (Post) (cm) 3.60 -Area of Debridement (cm) - Length 2.0 -Area of Debridement (cm) - Width 1.8 -Total Square (Area) (cm) 3.60 -Tunneling No -Undermining/Tunneling No -Circular Undermining No -Wound/Ulcer Outcome Not Healed -Ulcer Cleansing Rinsed/ Irrigated with Saline -Foul Odor after Cleansing No -Bioengineered Tissue Yes -Type of Bioengineered Tissue Epifix 18mm Disc -Expiration Date 12/21/26 -Product Lot Number [id number] -Percent Used 100 -Lot number of Saline Used [id number] -Bleeding Controlled with Pressure -Treatment Response Procedure Tolerated Well -Offloading No -Debridement - Subq, 1st 20sq cm No -Apply Skin Sub - each addt'l 25 sq cm 1 - Feet -Epifix 18mm Disc 3 Pain Scale: 0-10 Numeric Is Patient Pain Free? Yes Assessment/Plan Assessment/Plan (1) Ulcer of left foot with fat layer exposed: CODE(S): L97.522 - Non-pressure chronic ulcer of other part of left foot with fat layer exposed (2) Paraplegia: CODE(S): G82.20 - Paraplegia, unspecified PLAN: Plan Debridement done as documented above, procedure was well-tolerated. Increased nata - ulcer maceration/drainage. 3rd application of epi fix done today using 100% of product. Moistened with saline, covered with Adaptic touch. No Steri-Strips applied today. Leave in place for a week. ABD over top to help with drainage, change every other or third day. Tubigrip for compression, leg elevation, exercise as tolerated, vitamin C, D and zinc discussed. His questions were answered and he was advised to call with any further questions or concerns. Follow-up in a week or sooner if needed. This note was generated with [employer] dictation software. It may contain incorrect words, spelling, and punctuation that were not noted in checking the note before signing.
[2022-04-04 09:54] VITALS: BP 111/66; PULSE 80; RESP 16; TEMP 36.5; BMI 22.3
--- NOTE | 2022-04-04 13:48 | PCM.WC.PN ---
History of Present Illness Date of Service: 04/04/22 Chief Complaint: Left Foot Ulcer History of Wound: Mr. Bailey is a 36 yo who presents to the wound center due to non healing left foot ulcer. Noted initially in October/November, he denies any known precipitating factor. History of Paraplegia and has no feeling in his feet. He has been seeing Podiatry at the [facility]. Has had some debridement done and has been applying Megan without any significant improvement. He denies any significant drainage. No chills, fever or feeling of unwell. Progress of Wound: Has had 3 applications of epi fix so far. Surrounding maceration improved. Changed outer dressing more often. Objective Data Objective Data Vital Signs: Vital Signs Temp Pulse Resp BP O2 Del Method 97.7 F L 80 16 111/66 Room Air 04/04/22 09:54 04/04/22 09:54 04/04/22 09:54 04/04/22 09:54 04/04/22 09:54 Oxygen Delivery Method Room Air Weight: 160 lb Body Mass Index (BMI) 22.3 Charges/Coding Procedures Integumentary 150xxx-152xx: 79467 Skin sub graft trnk/arm/leg Physical Exam Const alert, oriented x3 and no apparent distress General Appearance: cooperative and comfortable HEENT normocephalic, head/scalp atraumatic and hearing grossly normal bilaterally Eyes EOMs intact bilaterally Neck full ROM and supple General: normal visual inspection Resp normal respiratory effort Effort and Inspection: able to speak in complete sentences Skin Wounds: wounds noted Neuro oriented x3 and CN's II-XII intact bilaterally Psych mental status grossly normal, thought process normal, cooperative, affect normal and speech normal Debridement Note Debridement Note Wound debrided: Left Foot Type of Debridement: Excisional debridement Anesthesia Used: 4% Lidocaine Solution Depth: Down to and including healthy tissue and in the subcutaneous layer Percentage of wound debrided: 100 Instrument Used: 3mm curette Tissue Removed: Slough and devitalized tissue Severity: Fat Layer Exposed Amount of bleeding with debridement: Mild Bleeding Controlled with: Pressure Patient tolerated procedure: Patient tolerated procedure well Post-Debridement Measurements and Additional Note: Post-Debridement Measurements/Treatment SRUTHI - Nurse 1 - General Ulcer Assessment Start: 03/28/22 09:43 Freq: Status: Active Protocol: ADEEL Activity Type Activity Date Activity User E-sign Co-sign Detail Recorded Client Recorded Date Recorded By Document 03/28/22 09:43 [facility] [id number] 03/28/22 09:50 [facility] Document 04/04/22 09:54 [facility] [id number] 04/04/22 10:01 [facility] 03/28/22 04/04/22 09:43 09:54 - Today's Visit Information Type of service Follow-up Visit Follow-up Visit (Physician/STORAGE AND BACKUP ADMINISTRATOR (Physician/STORAGE AND BACKUP ADMINISTRATOR ) ) Arrival Mode Wheelchair Ambulatory, Wheelchair Transfer Assistance None None Accompanied by girlfriend Patient Identification Verified (Name & Yes Yes ) Patient Requires Transmission-Based No No Precautions Height and Weight Body Mass Index (BMI) 22.3 22.3 BMI Classification Normal Normal Vital Signs Temperature (97.8 F-99.1 F) 96.7 F L 97.7 F L Temperature Source Temporal Temporal Pulse Rate (60-100) 105 H 80 Pulse Location Monitor Monitor Respiratory Rate (12-18) 16 16 Respiratory rate source Observation Observation Oxygen Delivery Method Room Air Room Air Blood Pressure (90/60-120/80) 130/79 H 111/66 Blood Pressure Mean (mm Hg) 96 81 Source Monitor Monitor Position Sitting Sitting Blood Pressure Location Left Arm Left Arm History Since Last Visit- (Skip if this is Patient's initial visit) Have you changed medications since your No No last visit? Any new allergies or adverse reactions No No Had a fall/change in ADL's that may No No increase risk of falls Signs or symptoms of abuse and/or No No neglect since last visit Have you been in the hospital since your No No last visit? Has dressing in place as prescribed Yes Yes Has compression in place as prescribed N/A N/A Has offloadiing in place as prescribed N/A N/A Experienced any changes in pain level or No No management Left Footwear Regular Shoe Regular Shoe Right Footwear Regular Shoe Regular Shoe Pain Scale: 0-10 Numeric Is Patient Pain Free? Yes Yes - Nurse 1 - General Ulcer Measurement Start: 03/28/22 09:43 Freq: Status: Active Protocol: Activity Type Activity Date Activity User E-sign Co-sign Detail Recorded Client Recorded Date Recorded By Document 03/28/22 09:43 [facility] [id number] 03/28/22 09:50 BMF Document 04/04/22 09:54 F [id number] 04/04/22 10:01 BMF 03/28/22 04/04/22 09:43 09:54 Wound Center Nurse 1 #3 L FOOT 3/4 WEBSPACE -Combined with other wound No No -Current Size (cm) - Length 1.7 1.8 -Current Size (cm) - Width 1.1 1.1 -Current Size (cm) - Depth 0.1 0.1 -Total Square Cm 1.87 1.98 -Date of Last Picture (Recall this 03/28/22 04/04/22 field) -Photo Taken Yes Yes -Epithelialization None Present None Present -Tunneling No No -Undermining/Tunneling No No -Circular Undermining No No -Exudate Amt Large Medium -Exudate Type Serosanguineous Serosanguineous -Wound Margin Flat & Intact Flat & Intact -Granulation Amt None Present (0 Large (67-100%) %) -Granulation Quality Red -Slough/Fibrin Yes Yes -Necrosis Amt Large (67-100%) Small (1-33%) -Necrotic Tissue Type Eschar Adherent Slough -Texture (Nata-wound Skin Appearance) Assessed, Assessed, Scarring Scarring -Moisture (Nata-wound Skin Appearance) Assessed, Assessed Maceration -Color (Nata-wound Skin Appearance) Assessed, Assessed, Erythema Erythema -Temperature (Nata-wound Skin No Abnormality No Abnormality Appearance) (Pt Warm) (Pt Warm) -Tenderness on Palpation (Nata-wound No No Skin Appearance) -Ulcer Cleansing Soap and Water Soap and Water -Foul Odor after Cleansing No No WC - Nurse 2 - General Ulcer CM Notes Start: 03/28/22 09:43 Freq: Status: Active Protocol: Activity Type Activity Date Activity User E-sign Co-sign Detail Recorded Client Recorded Date Recorded By Document 03/28/22 10:03 MW [id number] 03/28/22 10:11 MW Edit Result 03/28/22 10:03 MW (1) [id number] 03/29/22 06:52 PL Document 04/04/22 10:32 MW [id number] 04/04/22 10:38 MW (1) #3 L FOOT 3/4 WEBSPACE - Apply Skin Sub - 1st 25 sq cm - Feet => 1 - Apply Skin Sub - each addt'l 25 sq cm 1 => - Feet 03/28/22 04/04/22 10:03 10:32 Wound Center Nurse 2 #3 L FOOT 3/4 WEBSPACE -Time 10:03 10:33 -Correct Patient Yes Yes -Correct Side, Site, Position Yes Yes -Correct Procedure Yes Yes -Procedure Performed Yes Yes -Type of Procedure Debridement Debridement -Clinical Debridement Subcutaneous Subcutaneous -Tissue Removed Subcutaneous Subcutaneous -Post Debridement (cm) - Length 2.0 1.7 -Post Debridement (cm) - Width 1.8 1.0 -Post Debridement (cm) - Depth 0.1 0.1 -Total Square (Post) (cm) 3.60 1.70 -Area of Debridement (cm) - Length 2.0 1.7 -Area of Debridement (cm) - Width 1.8 1.0 -Total Square (Area) (cm) 3.60 1.70 -Tunneling No No -Undermining/Tunneling No No -Circular Undermining No No -Wound/Ulcer Outcome Not Healed Not Healed -Ulcer Cleansing Rinsed/ Rinsed/ Irrigated with Irrigated with Saline Saline -Foul Odor after Cleansing No No -Bioengineered Tissue Yes Yes -Type of Bioengineered Tissue Epifix 18mm Epifix 18mm Disc Disc -Expiration Date 12/21/26 12/21/26 -Product Lot Number [id number] -Percent Used 100 100 -Lot number of Saline Used [id number] -Bleeding Controlled with Pressure Pressure -Treatment Response Procedure Procedure Tolerated Well Tolerated Well -Offloading No No -Debridement - Subq, 1st 20sq cm No No -Apply Skin Sub - 1st 25 sq cm - Feet 1 1 -Epifix 18mm Disc 3 3 Pain Scale: 0-10 Numeric Is Patient Pain Free? Yes Yes - Nurse 3 - General Ulcer D/C NN Start: 03/28/22 09:43 Freq: Status: Active Protocol: Activity Type Activity Date Activity User E-sign Co-sign Detail Recorded Client Recorded Date Recorded By Document 03/28/22 10:24 [facility] [id number] 03/28/22 10:24 BM Document 04/04/22 10:49 [facility] [id number] 04/04/22 10:50 BMF 03/28/22 04/04/22 10:24 10:49 Wound Care Nurse 3 #3 L FOOT 3/4 WEBSPACE -Primary Dressing Applied NonAdherent Aquacel Extra Contact Layer -Other Dressing EPIFIX epifix -Primary Dressing Covered/Secured with Secured with Secured with Tape Tape -Other Covering ABD abd -Aquacel Extra 1 Left -Tubular Bandage Single Layer -Size of Tubigrip Used Size D -Size D ($) 2 -Other SENT EXTRA Treatment Response Procedure Procedure Tolerated Well Tolerated Well Pain Scale: 0-10 Numeric Is Patient Pain Free? Yes Yes WC - Visit Discharge Discharge Condition Stable Stable Ambulatory Status Wheelchair Wheelchair Transportation Private Auto Private Auto Assessment/Plan Assessment/Plan (1) Ulcer of left foot with fat layer exposed: CODE(S): L97.522 - Non-pressure chronic ulcer of other part of left foot with fat layer exposed (2) Paraplegia: CODE(S): G82.20 - Paraplegia, unspecified PLAN: Plan Debridement done as documented above, procedure was well-tolerated. 4th application of epi fix done today using 100% of product. Moistened with saline, covered with Adaptic touch. No Steri-Strips applied. Leave in place for a week. Aquacel and ABD over top to help with drainage, change every other or third day. Tubigrip for compression, leg elevation, exercise as tolerated, vitamin C, D and zinc discussed. His questions were answered and he was advised to call with any further questions or concerns. Follow-up in a week or sooner if needed. This note was generated with [employer] dictation software. It may contain incorrect words, spelling, and punctuation that were not noted in checking the note before signing.
[2022-04-11 09:44] VITALS: BP 153/88; PULSE 84; RESP 18; TEMP 36.5; BMI 22.3
--- NOTE | 2022-04-11 12:55 | PN.PCM_ITS ---
History of Present Illness Date of Service: 04/11/22 Chief Complaint: Left Foot Ulcer History of Wound: Mr. Bailey is a 36 yo who presents to the wound center due to non healing left foot ulcer. Noted initially in October/November, he denies any known precipitating factor. History of Paraplegia and has no feeling in his feet. He has been seeing Podiatry at the [facility]. Has had some debridement done and has been applying Megan without any significant improvement. He denies any significant drainage. No chills, fever or feeling of unwell. Progress of Wound: Has had 4 applications of epi fix so far. Some improvement noted. Objective Data Objective Data Vital Signs: Vital Signs Temp Pulse Resp BP O2 Del Method 97.7 F L 84 18 153/88 H Room Air 04/11/22 09:44 04/11/22 09:44 04/11/22 09:44 04/11/22 09:44 04/11/22 09:44 Oxygen Delivery Method Room Air Weight: 160 lb Body Mass Index (BMI) 22.3 Charges/Coding Procedures Integumentary 150xxx-152xx: 78600 Skin sub graft trnk/arm/leg Physical Exam Const alert, oriented x3 and no apparent distress General Appearance: cooperative and comfortable HEENT normocephalic, head/scalp atraumatic and hearing grossly normal bilaterally Eyes EOMs intact bilaterally Neck full ROM and supple General: normal visual inspection Resp normal respiratory effort Effort and Inspection: able to speak in complete sentences Skin Wounds: wounds noted Neuro oriented x3 and CN's II-XII intact bilaterally Psych mental status grossly normal, thought process normal, cooperative, affect normal and speech normal Debridement Note Debridement Note Wound debrided: Left Foot Type of Debridement: Excisional debridement Anesthesia Used: 4% Lidocaine Solution Depth: Down to and including healthy tissue and in the subcutaneous layer Percentage of wound debrided: 100 Instrument Used: 3mm curette Tissue Removed: Slough and devitalized tissue Severity: Fat Layer Exposed Amount of bleeding with debridement: Mild Bleeding Controlled with: Pressure Patient tolerated procedure: Patient tolerated procedure well Post-Debridement Measurements and Additional Note: Post-Debridement Measurements/Treatment SRUTHI - Nurse 1 - General Ulcer Assessment Start: 03/28/22 09:43 Freq: Status: Active Protocol: ADEEL Activity Type Activity Date Activity User E-sign Co-sign Detail Recorded Client Recorded Date Recorded By Document 03/28/22 09:43 [facility] [id number] 03/28/22 09:50 [facility] Document 04/04/22 09:54 [facility] [id number] 04/04/22 10:01 [facility] Document 04/11/22 09:44 [facility] [id number] 04/11/22 09:54 [facility] 03/28/22 04/04/22 04/11/22 09:43 09:54 09:44 - Today's Visit Information Type of service Follow-up Visit Follow-up Visit Follow-up Visit (Physician/MEDICAL AND HEALTH SERVICES MANAGER (Physician/MEDICAL AND HEALTH SERVICES MANAGER (Physician/MEDICAL AND HEALTH SERVICES MANAGER ) ) ) Arrival Mode Wheelchair Ambulatory, Wheelchair Wheelchair Transfer Assistance None None Accompanied by girlfriend megan Patient Identification Verified (Name & Yes Yes Yes ) Patient Requires Transmission-Based No No Yes Precautions Safety Precautions Fall Prevention Height and Weight Body Mass Index (BMI) 22.3 22.3 22.3 BMI Classification Normal Normal Normal Vital Signs Temperature (97.8 F-99.1 F) 96.7 F L 97.7 F L 97.7 F L Temperature Source Temporal Temporal Temporal Pulse Rate (60-100) 105 H 80 84 Pulse Location Monitor Monitor Monitor Respiratory Rate (12-18) 16 16 18 Respiratory rate source Observation Observation Observation Oxygen Delivery Method Room Air Room Air Room Air Blood Pressure (90/60-120/80) 130/79 H 111/66 153/88 H Blood Pressure Mean (mm Hg) 96 81 109 Source Monitor Monitor Monitor Position Sitting Sitting Sitting Blood Pressure Location Left Arm Left Arm Right Arm History Since Last Visit- (Skip if this is Patient's initial visit) Have you changed medications since your No No last visit? Any new allergies or adverse reactions No No Had a fall/change in ADL's that may No No increase risk of falls Signs or symptoms of abuse and/or No No neglect since last visit Have you been in the hospital since your No No last visit? Has dressing in place as prescribed Yes Yes Has compression in place as prescribed N/A N/A Has offloadiing in place as prescribed N/A N/A Experienced any changes in pain level or No No management Left Footwear Regular Shoe Regular Shoe Regular Shoe Right Footwear Regular Shoe Regular Shoe Regular Shoe Pain Scale: 0-10 Numeric Is Patient Pain Free? Yes Yes Yes WC - Nurse 1 - General Ulcer Measurement Start: 03/28/22 09:43 Freq: Status: Active Protocol: Activity Type Activity Date Activity User E-sign Co-sign Detail Recorded Client Recorded Date Recorded By Document 03/28/22 09:43 [facility] [id number] 03/28/22 09:50 BM Document 04/04/22 09:54 [facility] [id number] 04/04/22 10:01 [facility] Document 04/11/22 09:44 [place] [id number] 04/11/22 09:54 [place] 03/28/22 04/04/22 04/11/22 09:43 09:54 09:44 Wound Center Nurse 1 #3 L FOOT 3/4 WEBSPACE -Combined with other wound No No -Current Size (cm) - Length 1.7 1.8 2 -Current Size (cm) - Width 1.1 1.1 1.0 -Current Size (cm) - Depth 0.1 0.1 0.1 -Total Square Cm 1.87 1.98 2.0 -Date of Last Picture (Recall this 03/28/22 04/04/22 field) -Photo Taken Yes Yes -Epithelialization None Present None Present -Tunneling No No -Undermining/Tunneling No No -Circular Undermining No No -Exudate Amt Large Medium Small -Exudate Type Serosanguineous Serosanguineous Purulent -Wound Margin Flat & Intact Flat & Intact Flat & Intact -Granulation Amt None Present (0 Large (67-100%) Medium (34-66%) %) -Granulation Quality Red Pale,[place] -Slough/Fibrin Yes Yes -Necrosis Amt Large (67-100%) Small (1-33%) Medium (34-66%) -Necrotic Tissue Type Eschar Adherent Slough Adherent Slough -Texture (Nata-wound Skin Appearance) Assessed, Assessed, Assessed Scarring Scarring -Moisture (Nata-wound Skin Appearance) Assessed, Assessed Assessed Maceration -Color (Nata-wound Skin Appearance) Assessed, Assessed, Assessed Erythema Erythema -Temperature (Nata-wound Skin No Abnormality No Abnormality No Abnormality Appearance) (Pt Warm) (Pt Warm) (Pt Warm) -Tenderness on Palpation (Nata-wound No No No Skin Appearance) -Ulcer Cleansing Soap and Water Soap and Water Rinsed/ Irrigated with Saline -Foul Odor after Cleansing No No No -Anesthetic Used 4% Lidocaine Solution Lower Limb Edema Present NA WC - Nurse 2 - General Ulcer CM Notes Start: 03/28/22 09:43 Freq: Status: Active Protocol: Activity Type Activity Date Activity User E-sign Co-sign Detail Recorded Client Recorded Date Recorded By Document 03/28/22 10:03 MW [id number] 03/28/22 10:11 MW Edit Result 03/28/22 10:03 MW (1) [id number] 03/29/22 06:52 PL Document 04/04/22 10:32 MW [id number] 04/04/22 10:38 MW Document 04/11/22 10:31 MW [id number] 04/11/22 10:37 MW (1) #3 L FOOT 3/4 WEBSPACE - Apply Skin Sub - 1st 25 sq cm - Feet => 1 - Apply Skin Sub - each addt'l 25 sq cm 1 => - Feet 03/28/22 04/04/22 04/11/22 10:03 10:32 10:31 Wound Center Nurse 2 #3 L FOOT 3/4 WEBSPACE -Time 10:03 10:33 10:31 -Correct Patient Yes Yes Yes -Correct Side, Site, Position Yes Yes Yes -Correct Procedure Yes Yes Yes -Procedure Performed Yes Yes Yes -Type of Procedure Debridement Debridement Debridement -Clinical Debridement Subcutaneous Subcutaneous Subcutaneous -Tissue Removed Subcutaneous Subcutaneous Subcutaneous -Post Debridement (cm) - Length 2.0 1.7 1.8 -Post Debridement (cm) - Width 1.8 1.0 0.8 -Post Debridement (cm) - Depth 0.1 0.1 0.1 -Total Square (Post) (cm) 3.60 1.70 1.44 -Area of Debridement (cm) - Length 2.0 1.7 1.8 -Area of Debridement (cm) - Width 1.8 1.0 0.8 -Total Square (Area) (cm) 3.60 1.70 1.44 -Tunneling No No No -Undermining/Tunneling No No No -Circular Undermining No No No -Wound/Ulcer Outcome Not Healed Not Healed Not Healed -Ulcer Cleansing Rinsed/ Rinsed/ Rinsed/ Irrigated with Irrigated with Irrigated with Saline Saline Saline -Foul Odor after Cleansing No No No -Bioengineered Tissue Yes Yes Yes -Type of Bioengineered Tissue Epifix 18mm Epifix 18mm Epifix 18mm Disc Disc Disc -Expiration Date 12/21/26 12/21/26 12/21/26 -Product Lot Number [id number] -Percent Used 100 100 100 -Lot number of Saline Used [id number] -Bleeding Controlled with Pressure Pressure Pressure -Treatment Response Procedure Procedure Procedure Tolerated Well Tolerated Well Tolerated Well -Offloading No No No -Debridement - Subq, 1st 20sq cm No No No -Apply Skin Sub - 1st 25 sq cm - Feet 1 1 1 -Epifix 18mm Disc 3 3 3 Pain Scale: 0-10 Numeric Is Patient Pain Free? Yes Yes Yes - Nurse 3 - General Ulcer D/C NN Start: 03/28/22 09:43 Freq: Status: Active Protocol: Activity Type Activity Date Activity User E-sign Co-sign Detail Recorded Client Recorded Date Recorded By Document 03/28/22 10:24 [facility] [id number] 03/28/22 10:24 [facility] Document 04/04/22 10:49 [facility] [id number] 04/04/22 10:50 [facility] Document 04/11/22 10:44 [facility] [id number] 04/11/22 10:45 [facility] 03/28/22 04/04/22 04/11/22 10:24 10:49 10:44 Wound Care Nurse 3 #3 L FOOT 3/4 WEBSPACE -Primary Dressing Applied NonAdherent Aquacel Extra Contact Layer -Other Dressing EPIFIX epifix EPIFIX -Primary Dressing Covered/Secured with Secured with Secured with Secured with Tape Tape Tape -Other Covering ABD abd ABD -Aquacel Extra 1 Left -Tubular Bandage Single Layer -Size of Tubigrip Used Size D -Size D ($) 2 -Other SENT EXTRA Treatment Response Procedure Procedure Procedure Tolerated Well Tolerated Well Tolerated Well Pain Scale: 0-10 Numeric Is Patient Pain Free? Yes Yes Yes - Visit Discharge Discharge Condition Stable Stable Stable Ambulatory Status Wheelchair Wheelchair Wheelchair Transportation Private Auto Private Auto Private Auto Accompanied by GIRLFRIEND Assessment/Plan Assessment/Plan (1) Ulcer of left foot with fat layer exposed: CODE(S): L97.522 - Non-pressure chronic ulcer of other part of left foot with fat layer exposed (2) Paraplegia: CODE(S): G82.20 - Paraplegia, unspecified PLAN: Plan Debridement done as documented above, procedure was well-tolerated. 5th application of epi fix done today using 100% of product. Moistened with saline, covered with Adaptic touch. No Steri-Strips applied. Leave in place for a week. Aquacel and ABD over top to help with drainage, change every other or third day. Tubigrip for compression, leg elevation, exercise as tolerated, vitamin C, D and zinc discussed. His questions were answered and he was advised to call with any further questions or concerns. Follow-up in a week or sooner if needed. This note was generated with Live [employer] dictation software. It may contain incorrect words, spelling, and punctuation that were not noted in checking the note before signing.
[2022-04-18 09:52] VITALS: BP 122/63; PULSE 78; RESP 18; TEMP 36.4; BMI 22.3
--- NOTE | 2022-04-18 13:30 | PN.PCM_ITS ---
History of Present Illness Date of Service: 04/18/22 Chief Complaint: Left Foot Ulcer History of Wound: Mr. Bailey is a 36 yo who presents to the wound center due to non healing left foot ulcer. Noted initially in October/November, he denies any known precipitating factor. History of Paraplegia and has no feeling in his feet. He has been seeing Podiatry at the [facility]. Has had some debridement done and has been applying Megan without any significant improvement. He denies any significant drainage. No chills, fever or feeling of unwell. Progress of Wound: Has had 5 applications of epi fix so far. Some improvement noted. Objective Data Objective Data Vital Signs: Vital Signs Temp Pulse Resp BP O2 Del Method 97.6 F L 78 18 122/63 H Room Air 04/18/22 09:52 04/18/22 09:52 04/18/22 09:52 04/18/22 09:52 04/11/22 09:44 Oxygen Delivery Method Room Air Weight: 160 lb Body Mass Index (BMI) 22.3 Charges/Coding Procedures Integumentary 150xxx-152xx: 25233 Skin sub graft trnk/arm/leg Physical Exam Const alert, oriented x3 and no apparent distress General Appearance: cooperative and comfortable HEENT normocephalic, head/scalp atraumatic and hearing grossly normal bilaterally Eyes EOMs intact bilaterally Neck full ROM and supple General: normal visual inspection Resp normal respiratory effort Effort and Inspection: able to speak in complete sentences Skin Wounds: wounds noted Neuro oriented x3 and CN's II-XII intact bilaterally Psych mental status grossly normal, thought process normal, cooperative, affect normal and speech normal Debridement Note Debridement Note Wound debrided: Left Foot Type of Debridement: Excisional debridement Anesthesia Used: 4% Lidocaine Solution Depth: Down to and including healthy tissue and in the subcutaneous layer Percentage of wound debrided: 100 Instrument Used: 5mm curette Tissue Removed: Slough and devitalized tissue Severity: Fat Layer Exposed Amount of bleeding with debridement: Mild Bleeding Controlled with: Pressure Patient tolerated procedure: Patient tolerated procedure well Post-Debridement Measurements and Additional Note: Post-Debridement Measurements/Treatment SRUTHI - Nurse 1 - General Ulcer Assessment Start: 03/28/22 09:43 Freq: Status: Active Protocol: ADEEL Activity Type Activity Date Activity User E-sign Co-sign Detail Recorded Client Recorded Date Recorded By Document 03/28/22 09:43 [facility] [id number] 03/28/22 09:50 [facility] Document 04/04/22 09:54 [facility] [id number] 04/04/22 10:01 BM Document 04/11/22 09:44 MT [id number] 04/11/22 09:54 MT Document 04/18/22 09:52 DL [id number] 04/18/22 09:58 DL 03/28/22 04/04/22 04/11/22 09:43 09:54 09:44 WC - Today's Visit Information Type of service Follow-up Visit Follow-up Visit Follow-up Visit (Physician/PRETZEL TWISTING MACHINE OPERATOR (Physician/PRETZEL TWISTING MACHINE OPERATOR (Physician/PRETZEL TWISTING MACHINE OPERATOR ) ) ) Arrival Mode Wheelchair Ambulatory, Wheelchair Wheelchair Transfer Assistance None None Accompanied by girlfriend megan Patient Identification Verified (Name & Yes Yes Yes ) Patient Requires Transmission-Based No No Yes Precautions Safety Precautions Fall Prevention Height and Weight Body Mass Index (BMI) 22.3 22.3 22.3 BMI Classification Normal Normal Normal Vital Signs Temperature (97.8 F-99.1 F) 96.7 F L 97.7 F L 97.7 F L Temperature Source Temporal Temporal Temporal Pulse Rate (60-100) 105 H 80 84 Pulse Location Monitor Monitor Monitor Respiratory Rate (12-18) 16 16 18 Respiratory rate source Observation Observation Observation Oxygen Delivery Method Room Air Room Air Room Air Blood Pressure (90/60-120/80) 130/79 H 111/66 153/88 H Blood Pressure Mean (mm Hg) 96 81 109 Source Monitor Monitor Monitor Position Sitting Sitting Sitting Blood Pressure Location Left Arm Left Arm Right Arm History Since Last Visit- (Skip if this is Patient's initial visit) Have you changed medications since your No No last visit? Any new allergies or adverse reactions No No Had a fall/change in ADL's that may No No increase risk of falls Signs or symptoms of abuse and/or No No neglect since last visit Have you been in the hospital since your No No last visit? Has dressing in place as prescribed Yes Yes Has compression in place as prescribed N/A N/A Has offloadiing in place as prescribed N/A N/A Experienced any changes in pain level or No No management Left Footwear Regular Shoe Regular Shoe Regular Shoe Right Footwear Regular Shoe Regular Shoe Regular Shoe Pain Scale: 0-10 Numeric Is Patient Pain Free? Yes Yes Yes 04/18/22 09:52 WC - Today's Visit Information Type of service Follow-up Visit (Physician/PRETZEL TWISTING MACHINE OPERATOR ) Arrival Mode Ambulatory, Wheelchair Transfer Assistance None Accompanied by Patient Identification Verified (Name & ) Patient Requires Transmission-Based No Precautions Safety Precautions Height and Weight Body Mass Index (BMI) 22.3 BMI Classification Normal Vital Signs Temperature (97.8 F-99.1 F) 97.6 F L Temperature Source Temporal Pulse Rate (60-100) 78 Pulse Location Monitor Respiratory Rate (12-18) 18 Respiratory rate source Observation Oxygen Delivery Method Blood Pressure (90/60-120/80) 122/63 H Blood Pressure Mean (mm Hg) 82 Source Monitor Position Blood Pressure Location History Since Last Visit- (Skip if this is Patient's initial visit) Have you changed medications since your No last visit? Any new allergies or adverse reactions No Had a fall/change in ADL's that may No increase risk of falls Signs or symptoms of abuse and/or No neglect since last visit Have you been in the hospital since your No last visit? Has dressing in place as prescribed Yes Has compression in place as prescribed N/A Has offloadiing in place as prescribed Yes Experienced any changes in pain level or No management Left Footwear Right Footwear Pain Scale: 0-10 Numeric Is Patient Pain Free? Yes - Nurse 1 - General Ulcer Measurement Start: 03/28/22 09:43 Freq: Status: Active Protocol: Activity Type Activity Date Activity User E-sign Co-sign Detail Recorded Client Recorded Date Recorded By Document 03/28/22 09:43 [facility] [id number] 03/28/22 09:50 [facility] Document 04/04/22 09:54 [facility] [id number] 04/04/22 10:01 [facility] Document 04/11/22 09:44 MT [id number] 04/11/22 09:54 MT Document 04/18/22 09:52 DL [id number] 04/18/22 09:58 DL 03/28/22 04/04/22 04/11/22 09:43 09:54 09:44 Wound Center Nurse 1 #3 L FOOT 3/4 WEBSPACE -Combined with other wound No No -Current Size (cm) - Length 1.7 1.8 2 -Current Size (cm) - Width 1.1 1.1 1.0 -Current Size (cm) - Depth 0.1 0.1 0.1 -Total Square Cm 1.87 1.98 2.0 -Date of Last Picture (Recall this 03/28/22 04/04/22 field) -Photo Taken Yes Yes -Epithelialization None Present None Present -Tunneling No No -Undermining/Tunneling No No -Circular Undermining No No -Exudate Amt Large Medium Small -Exudate Type Serosanguineous Serosanguineous Purulent -Wound Margin Flat & Intact Flat & Intact Flat & Intact -Granulation Amt None Present (0 Large (67-100%) Medium (34-66%) %) -Granulation Quality Red Pale,Croom -Slough/Fibrin Yes Yes -Necrosis Amt Large (67-100%) Small (1-33%) Medium (34-66%) -Necrotic Tissue Type Eschar Adherent Slough Adherent Slough -Structure Exposed -Texture (Nata-wound Skin Appearance) Assessed, Assessed, Assessed Scarring Scarring -Moisture (Nata-wound Skin Appearance) Assessed, Assessed Assessed Maceration -Color (Nata-wound Skin Appearance) Assessed, Assessed, Assessed Erythema Erythema -Temperature (Nata-wound Skin No Abnormality No Abnormality No Abnormality Appearance) (Pt Warm) (Pt Warm) (Pt Warm) -Tenderness on Palpation (Nata-wound No No No Skin Appearance) -Ulcer Cleansing Soap and Water Soap and Water Rinsed/ Irrigated with Saline -Foul Odor after Cleansing No No No -Anesthetic Used 4% Lidocaine Solution Lower Limb Edema Present NA 04/18/22 09:52 Wound Center Nurse 1 #3 L FOOT 3/4 WEBSPACE -Combined with other wound -Current Size (cm) - Length 1.6 -Current Size (cm) - Width 0.8 -Current Size (cm) - Depth 0.1 -Total Square Cm 1.28 -Date of Last Picture (Recall this field) -Photo Taken Yes -Epithelialization -Tunneling -Undermining/Tunneling -Circular Undermining -Exudate Amt Small -Exudate Type Serosanguineous -Wound Margin Distinct, Outline Attached -Granulation Amt Large (67-100%) -Granulation Quality Red -Slough/Fibrin Yes -Necrosis Amt Small (1-33%) -Necrotic Tissue Type -Structure Exposed N/A -Texture (Nata-wound Skin Appearance) Scarring -Moisture (Nata-wound Skin Appearance) Dry/Scaly -Color (Nata-wound Skin Appearance) Hemosiderin Staining -Temperature (Nata-wound Skin No Abnormality Appearance) (Pt Warm) -Tenderness on Palpation (Nata-wound No Skin Appearance) -Ulcer Cleansing Rinsed/ Irrigated with Saline -Foul Odor after Cleansing No -Anesthetic Used 5% Lidocaine Gel Lower Limb Edema Present WC - Nurse 2 - General Ulcer CM Notes Start: 03/28/22 09:43 Freq: Status: Active Protocol: Activity Type Activity Date Activity User E-sign Co-sign Detail Recorded Client Recorded Date Recorded By Document 03/28/22 10:03 MW [id number] 03/28/22 10:11 MW Edit Result 03/28/22 10:03 MW (1) [id number] 03/29/22 06:52 PL Document 04/04/22 10:32 MW [id number] 04/04/22 10:38 MW Document 04/11/22 10:31 MW [id number] 04/11/22 10:37 MW Document 04/18/22 10:06 MW [id number] 04/18/22 10:13 MW (1) #3 L FOOT 3/4 WEBSPACE - Apply Skin Sub - 1st 25 sq cm - Feet => 1 - Apply Skin Sub - each addt'l 25 sq cm 1 => - Feet 03/28/22 04/04/22 04/11/22 10:03 10:32 10:31 Wound Center Nurse 2 #3 L FOOT 3/4 WEBSPACE -Time 10:03 10:33 10:31 -Correct Patient Yes Yes Yes -Correct Side, Site, Position Yes Yes Yes -Correct Procedure Yes Yes Yes -Procedure Performed Yes Yes Yes -Type of Procedure Debridement Debridement Debridement -Clinical Debridement Subcutaneous Subcutaneous Subcutaneous -Tissue Removed Subcutaneous Subcutaneous Subcutaneous -Post Debridement (cm) - Length 2.0 1.7 1.8 -Post Debridement (cm) - Width 1.8 1.0 0.8 -Post Debridement (cm) - Depth 0.1 0.1 0.1 -Total Square (Post) (cm) 3.60 1.70 1.44 -Area of Debridement (cm) - Length 2.0 1.7 1.8 -Area of Debridement (cm) - Width 1.8 1.0 0.8 -Total Square (Area) (cm) 3.60 1.70 1.44 -Tunneling No No No -Undermining/Tunneling No No No -Circular Undermining No No No -Wound/Ulcer Outcome Not Healed Not Healed Not Healed -Ulcer Cleansing Rinsed/ Rinsed/ Rinsed/ Irrigated with Irrigated with Irrigated with Saline Saline Saline -Foul Odor after Cleansing No No No -Bioengineered Tissue Yes Yes Yes -Type of Bioengineered Tissue Epifix 18mm Epifix 18mm Epifix 18mm Disc Disc Disc -Expiration Date 12/21/26 12/21/26 12/21/26 -Product Lot Number [id number] -Percent Used 100 100 100 -Lot number of Saline Used [id number] -Bleeding Controlled with Pressure Pressure Pressure -Treatment Response Procedure Procedure Procedure Tolerated Well Tolerated Well Tolerated Well -Offloading No No No -Debridement - Subq, 1st 20sq cm No No No -Apply Skin Sub - 1st 25 sq cm - Feet 1 1 1 -Epifix 18mm Disc 3 3 3 Pain Scale: 0-10 Numeric Is Patient Pain Free? Yes Yes Yes 04/18/22 10:06 Wound Center Nurse 2 #3 L FOOT 3/4 WEBSPACE -Time 10:07 -Correct Patient Yes -Correct Side, Site, Position Yes -Correct Procedure Yes -Procedure Performed Yes -Type of Procedure Debridement -Clinical Debridement Subcutaneous -Tissue Removed Subcutaneous -Post Debridement (cm) - Length 1.6 -Post Debridement (cm) - Width 0.8 -Post Debridement (cm) - Depth 0.1 -Total Square (Post) (cm) 1.28 -Area of Debridement (cm) - Length 1.6 -Area of Debridement (cm) - Width 0.8 -Total Square (Area) (cm) 1.28 -Tunneling No -Undermining/Tunneling No -Circular Undermining No -Wound/Ulcer Outcome Not Healed -Ulcer Cleansing Rinsed/ Irrigated with Saline -Foul Odor after Cleansing No -Bioengineered Tissue Yes -Type of Bioengineered Tissue Epifix 18mm Disc -Expiration Date 12/21/26 -Product Lot Number [id number] -Percent Used 100 -Lot number of Saline Used [id number] -Bleeding Controlled with Pressure -Treatment Response Procedure Tolerated Well -Offloading No -Debridement - Subq, 1st 20sq cm No -Apply Skin Sub - 1st 25 sq cm - Feet 1 -Epifix 18mm Disc 3 Pain Scale: 0-10 Numeric Is Patient Pain Free? Yes - Nurse 3 - General Ulcer D/C NN Start: 03/28/22 09:43 Freq: Status: Active Protocol: Activity Type Activity Date Activity User E-sign Co-sign Detail Recorded Client Recorded Date Recorded By Document 03/28/22 10:24 [facility] [id number] 03/28/22 10:24 BM Document 04/04/22 10:49 [facility] [id number] 04/04/22 10:50 [facility] Document 04/11/22 10:44 BMF [id number] 04/11/22 10:45 BMF Document 04/18/22 10:25 DL [id number] 04/18/22 10:26 DL 03/28/22 04/04/22 04/11/22 10:24 10:49 10:44 Wound Care Nurse 3 #3 L FOOT 3/4 WEBSPACE -Foul Odor after Cleansing -Primary Dressing Applied NonAdherent Aquacel Extra Contact Layer -Other Dressing EPIFIX epifix EPIFIX -Primary Dressing Covered/Secured with Secured with Secured with Secured with Tape Tape Tape -Other Covering ABD abd ABD -Aquacel Extra 1 Left -Tubular Bandage Single Layer -Size of Tubigrip Used Size D -Size D ($) 2 -Other SENT EXTRA Treatment Response Procedure Procedure Procedure Tolerated Well Tolerated Well Tolerated Well Pain Scale: 0-10 Numeric Is Patient Pain Free? Yes Yes Yes - Visit Discharge Discharge Condition Stable Stable Stable Ambulatory Status Wheelchair Wheelchair Wheelchair Transportation Private Auto Private Auto Private Auto Accompanied by GIRLFRIEND 04/18/22 10:25 Wound Care Nurse 3 #3 L FOOT 3/4 WEBSPACE -Foul Odor after Cleansing No -Primary Dressing Applied NonAdherent Contact Layer -Other Dressing Epifix -Primary Dressing Covered/Secured with Dry Gauze, Secured with Tape -Other Covering -Aquacel Extra Left -Tubular Bandage -Size of Tubigrip Used -Size D ($) -Other Treatment Response Procedure Tolerated Well Pain Scale: 0-10 Numeric Is Patient Pain Free? Yes WC - Visit Discharge Discharge Condition Stable Ambulatory Status Wheelchair Transportation Private Auto Accompanied by Assessment/Plan Assessment/Plan (1) Ulcer of left foot with fat layer exposed: CODE(S): L97.522 - Non-pressure chronic ulcer of other part of left foot with fat layer exposed (2) Paraplegia: CODE(S): G82.20 - Paraplegia, unspecified PLAN: Plan Debridement done as documented above, procedure was well-tolerated. 6th application of epi fix done today using 100% of product. Moistened with saline, covered with Adaptic touch. No Steri-Strips applied. Leave in place for a week. Aquacel and ABD over top to help with drainage, change every other or third day. Tubigrip for compression, leg elevation, exercise as tolerated, vitamin C, D and zinc discussed. His questions were answered and he was advised to call with any further questions or concerns. Follow-up in a week or sooner if needed. This note was generated with [employer] dictation software. It may contain incorrect words, spelling, and punctuation that were not noted in checking the note before signing.
== END 2022-04-22 23:59 | disposition home or self-care (01) ==
LOC: WC 09:30
PROVIDERS: PCP Family Medicine; Visit Provider Internal Medicine
DX: L97.522 Non-pressure chronic ulcer of other part of left foot with fat layer exposed (principal); G82.20 Paraplegia, unspecified; Z79.899 Other long term (current) drug therapy
CPT/HCPCS: 15275; 15276; Q4186

== ENCOUNTER 2022-05-09 09:30 | Outpatient (RCR) | payer MEDICARE, MEDICAID, SELFPAY ==
[2022-04-23 00:36] VITALS: BP 122/63; PULSE 78; RESP 18; TEMP 36.4; BMI 22.3
[2022-04-25 09:56] VITALS: BP 120/74; PULSE 74; RESP 18; TEMP 36.1; BMI 22.3
--- NOTE | 2022-04-25 12:17 | PN.PCM_ITS ---
History of Present Illness Date of Service: 04/25/22 Chief Complaint: Left Foot Ulcer History of Wound: Mr. Bailey is a 36 yo who presents to the wound center due to non healing left foot ulcer. Noted initially in October/November, he denies any known precipitating factor. History of Paraplegia and has no feeling in his feet. He has been seeing Podiatry at the [facility]. Has had some debridement done and has been applying Megan without any significant improvement. He denies any significant drainage. No chills, fever or feeling of unwell. Progress of Wound: Has had 6 applications of epi fix so far. Some improvement noted. Objective Data Objective Data Vital Signs: Vital Signs Temp Pulse Resp BP O2 Del Method 97 F L 74 18 120/74 Room Air 04/25/22 09:56 04/25/22 09:56 04/25/22 09:56 04/25/22 09:56 04/25/22 09:56 Oxygen Delivery Method Room Air Weight: 160 lb Body Mass Index (BMI) 22.3 Charges/Coding Procedures Integumentary 150xxx-152xx: 87412 Skin sub graft trnk/arm/leg Physical Exam Const alert, oriented x3 and no apparent distress General Appearance: cooperative and comfortable HEENT normocephalic, head/scalp atraumatic and hearing grossly normal bilaterally Eyes EOMs intact bilaterally Neck full ROM and supple General: normal visual inspection Resp normal respiratory effort Effort and Inspection: able to speak in complete sentences Skin Wounds: wounds noted Neuro oriented x3 and CN's II-XII intact bilaterally Psych mental status grossly normal, thought process normal, cooperative, affect normal and speech normal Debridement Note Debridement Note Wound debrided: Left Foot Type of Debridement: Excisional debridement Anesthesia Used: 4% Lidocaine Solution Depth: Down to and including healthy tissue and in the subcutaneous layer Percentage of wound debrided: 100 Instrument Used: 3mm curette Tissue Removed: Slough and devitalized tissue Severity: Fat Layer Exposed Amount of bleeding with debridement: Mild Bleeding Controlled with: Pressure Patient tolerated procedure: Patient tolerated procedure well Post-Debridement Measurements and Additional Note: Post-Debridement Measurements/Treatment SRUTHI - Nurse 1 - General Ulcer Assessment Start: 04/25/22 09:55 Freq: Status: Active Protocol: ADEEL Activity Type Activity Date Activity User E-sign Co-sign Detail Recorded Client Recorded Date Recorded By Document 04/25/22 09:56 AK [id number] 04/25/22 10:02 AK 04/25/22 09:56 - Today's Visit Information Type of service Follow-up Visit (Physician/PUBLIC TRANSPORTATION INSPECTOR ) Arrival Mode Wheelchair Accompanied by girlfriend Patient Identification Verified (Name & Yes ) Safety Precautions Fall Prevention Height and Weight Body Mass Index (BMI) 22.3 BMI Classification Normal Vital Signs Temperature (97.8 F-99.1 F) 97 F L Temperature Source Temporal Pulse Rate (60-100) 74 Pulse Location Monitor Respiratory Rate (12-18) 18 Respiratory rate source Observation Oxygen Delivery Method Room Air Blood Pressure (90/60-120/80) 120/74 Blood Pressure Mean (mm Hg) 89 Source Monitor Position Sitting Blood Pressure Location Left Arm History Since Last Visit- (Skip if this is Patient's initial visit) Have you been in the hospital since your No last visit? Has dressing in place as prescribed Yes Has compression in place as prescribed Yes Has offloadiing in place as prescribed Yes Experienced any changes in pain level or Yes management Left Footwear Regular Shoe Right Footwear Regular Shoe Pain Scale: 0-10 Numeric Is Patient Pain Free? Yes - Nurse 1 - General Ulcer Measurement Start: 04/25/22 09:55 Freq: Status: Active Protocol: Activity Type Activity Date Activity User E-sign Co-sign Detail Recorded Client Recorded Date Recorded By Document 04/25/22 09:56 AK [id number] 04/25/22 10:02 AK 04/25/22 09:56 Wound Center Nurse 1 #3 L FOOT 3/4 WEBSPACE -Current Size (cm) - Length 0.1 -Current Size (cm) - Width 0.1 -Current Size (cm) - Depth 0.1 -Total Square Cm 0.01 -Exudate Amt Small -Exudate Type Serosanguineous -Wound Margin Flat & Intact -Granulation Amt Medium (34-66%) -Granulation Quality Pale,[place],Red -Necrosis Amt Medium (34-66%) -Necrotic Tissue Type Adherent Slough -Texture (Nata-wound Skin Appearance) Assessed -Moisture (Nata-wound Skin Appearance) Assessed -Color (Nata-wound Skin Appearance) Assessed -Temperature (Nata-wound Skin No Abnormality Appearance) (Pt Warm) -Tenderness on Palpation (Nata-wound No Skin Appearance) -Ulcer Cleansing Soap and Water -Foul Odor after Cleansing No Lower Limb Edema Present NA WC - Nurse 2 - General Ulcer CM Notes Start: 04/25/22 09:55 Freq: Status: Active Protocol: Activity Type Activity Date Activity User E-sign Co-sign Detail Recorded Client Recorded Date Recorded By Document 04/25/22 10:17 MW [id number] 04/25/22 10:25 MW 04/25/22 10:17 Wound Center Nurse 2 #3 L FOOT 3/4 WEBSPACE -Time 10:17 -Correct Patient Yes -Correct Side, Site, Position Yes -Correct Procedure Yes -Procedure Performed Yes -Type of Procedure Debridement -Clinical Debridement Subcutaneous -Tissue Removed Subcutaneous -Post Debridement (cm) - Length 1.3 -Post Debridement (cm) - Width 0.6 -Post Debridement (cm) - Depth 0.1 -Total Square (Post) (cm) 0.78 -Area of Debridement (cm) - Length 1.3 -Area of Debridement (cm) - Width 0.6 -Total Square (Area) (cm) 0.78 -Tunneling No -Undermining/Tunneling No -Circular Undermining No -Wound/Ulcer Outcome Not Healed -Ulcer Cleansing Rinsed/ Irrigated with Saline -Foul Odor after Cleansing No -Bioengineered Tissue Yes -Type of Bioengineered Tissue Epifix 18mm Disc -Expiration Date 01/21/27 -Product Lot Number [id number] -Percent Used 100 -Lot number of Saline Used [id number] -Bleeding Controlled with Pressure -Treatment Response Procedure Tolerated Well -Offloading No -Debridement - Subq, 1st 20sq cm No -Apply Skin Sub - 1st 25 sq cm - Feet 1 -Epifix 18mm Disc 3 Pain Scale: 0-10 Numeric Is Patient Pain Free? Yes WC - Nurse 3 - General Ulcer D/C NN Start: 04/25/22 09:55 Freq: Status: Active Protocol: Activity Type Activity Date Activity User E-sign Co-sign Detail Recorded Client Recorded Date Recorded By Document 04/25/22 10:34 DL [id number] 04/25/22 10:36 DL 04/25/22 10:34 Wound Care Nurse 3 #3 L FOOT 3/4 WEBSPACE -Primary Dressing Applied Aquacel Extra -Other Dressing epifix -Primary Dressing Covered/Secured with Dry Gauze, Secured with Tape -Aquacel Extra 1 Treatment Response Procedure Tolerated Well Pain Scale: 0-10 Numeric Is Patient Pain Free? Yes WC - Visit Discharge Discharge Condition Stable Ambulatory Status Wheelchair Transportation Private Auto Assessment/Plan Assessment/Plan (1) Ulcer of left foot with fat layer exposed: CODE(S): L97.522 - Non-pressure chronic ulcer of other part of left foot with fat layer exposed (2) Paraplegia: CODE(S): G82.20 - Paraplegia, unspecified PLAN: Plan Debridement done as documented above, procedure was well-tolerated. 7th application of epi fix done today using 100% of product. Moistened with saline, covered with Adaptic touch. No Steri-Strips applied. Leave in place for a week. Aquacel and ABD over top to help with drainage, change every other or third day. Tubigrip for compression, leg elevation, exercise as tolerated, vitamin C, D and zinc discussed. His questions were answered and he was advised to call with any further questions or concerns. Follow-up in a week or sooner if needed. This note was generated with [employer] dictation software. It may contain incorrect words, spelling, and punctuation that were not noted in checking the note before signing.
[2022-05-02 09:45] VITALS: BP 133/70; PULSE 64; RESP 18; TEMP 36.4; BMI 22.3
--- NOTE | 2022-05-02 10:44 | PN.PCM_ITS ---
History of Present Illness Date of Service: 05/02/22 Chief Complaint: Left Foot Ulcer History of Wound: Mr. Bailey is a 36 yo who presents to the wound center due to non healing left foot ulcer. Noted initially in October/November, he denies any known precipitating factor. History of Paraplegia and has no feeling in his feet. He has been seeing Podiatry at the [facility]. Has had some debridement done and has been applying Megan without any significant improvement. He denies any significant drainage. No chills, fever or feeling of unwell. Progress of Wound: Has had 7 applications of epi fix so far. Slowly improving. No new concerns at this time. Objective Data Objective Data Vital Signs: Vital Signs Temp Pulse Resp BP O2 Del Method 97.6 F L 64 18 133/70 H Room Air 05/02/22 09:45 05/02/22 09:45 05/02/22 09:45 05/02/22 09:45 04/25/22 09:56 Oxygen Delivery Method Room Air Weight: 160 lb Body Mass Index (BMI) 22.3 Charges/Coding Procedures Integumentary 150xxx-152xx: 24673 Skin sub graft trnk/arm/leg Physical Exam Const alert, oriented x3 and no apparent distress General Appearance: cooperative and comfortable HEENT normocephalic, head/scalp atraumatic and hearing grossly normal bilaterally Eyes EOMs intact bilaterally Neck full ROM and supple General: normal visual inspection Resp normal respiratory effort Effort and Inspection: able to speak in complete sentences Skin Wounds: wounds noted Neuro oriented x3 and CN's II-XII intact bilaterally Psych mental status grossly normal, thought process normal, cooperative, affect normal and speech normal Debridement Note Debridement Note Wound debrided: Left Foot Type of Debridement: Excisional debridement Anesthesia Used: 4% Lidocaine Solution Depth: Down to and including healthy tissue and in the subcutaneous layer Percentage of wound debrided: 100 Instrument Used: 3mm curette Tissue Removed: Slough and devitalized tissue Severity: Fat Layer Exposed Amount of bleeding with debridement: Mild Bleeding Controlled with: Pressure Patient tolerated procedure: Patient tolerated procedure well Post-Debridement Measurements and Additional Note: Post-Debridement Measurements/Treatment SRUTHI - Nurse 1 - General Ulcer Assessment Start: 04/25/22 09:55 Freq: Status: Active Protocol: ADEEL Activity Type Activity Date Activity User E-sign Co-sign Detail Recorded Client Recorded Date Recorded By Document 04/25/22 09:56 MT [id number] 04/25/22 10:02 MT Document 05/02/22 09:45 DL [id number] 05/02/22 09:52 DL 04/25/22 05/02/22 09:56 09:45 - Today's Visit Information Type of service Follow-up Visit Follow-up Visit (Physician/TRAIN DISPATCHER (Physician/TRAIN DISPATCHER ) ) Arrival Mode Wheelchair Ambulatory, Wheelchair Transfer Assistance None Accompanied by girlfriend Patient Identification Verified (Name & Yes Yes ) Patient Requires Transmission-Based No Precautions Safety Precautions Fall Prevention Height and Weight Body Mass Index (BMI) 22.3 22.3 BMI Classification Normal Normal Vital Signs Temperature (97.8 F-99.1 F) 97 F L 97.6 F L Temperature Source Temporal Temporal Pulse Rate (60-100) 74 64 Pulse Location Monitor Monitor Respiratory Rate (12-18) 18 18 Respiratory rate source Observation Observation Oxygen Delivery Method Room Air Blood Pressure (90/60-120/80) 120/74 133/70 H Blood Pressure Mean (mm Hg) 89 91 Source Monitor Monitor Position Sitting Blood Pressure Location Left Arm History Since Last Visit- (Skip if this is Patient's initial visit) Have you changed medications since your No last visit? Any new allergies or adverse reactions No Had a fall/change in ADL's that may No increase risk of falls Signs or symptoms of abuse and/or No neglect since last visit Have you been in the hospital since your No No last visit? Has dressing in place as prescribed Yes No Has compression in place as prescribed Yes N/A Has offloadiing in place as prescribed Yes Yes Experienced any changes in pain level or Yes No management Left Footwear Regular Shoe Right Footwear Regular Shoe Pain Scale: 0-10 Numeric Is Patient Pain Free? Yes Yes - Nurse 1 - General Ulcer Measurement Start: 04/25/22 09:55 Freq: Status: Active Protocol: Activity Type Activity Date Activity User E-sign Co-sign Detail Recorded Client Recorded Date Recorded By Document 04/25/22 09:56 MT [id number] 04/25/22 10:02 MT Document 05/02/22 09:45 DL [id number] 05/02/22 09:52 DL 04/25/22 05/02/22 09:56 09:45 Wound Center Nurse 1 #3 L FOOT 3/4 WEBSPACE -Current Size (cm) - Length 0.1 1.1 -Current Size (cm) - Width 0.1 0.4 -Current Size (cm) - Depth 0.1 0.1 -Total Square Cm 0.01 0.44 -Photo Taken No -Exudate Amt Small -Exudate Type Serosanguineous -Wound Margin Flat & Intact -Granulation Amt Medium (34-66%) Small (1-33%) -Granulation Quality Pale,[place],Red Red -Necrosis Amt Medium (34-66%) None Present (0 %) -Necrotic Tissue Type Adherent Slough -Structure Exposed N/A -Texture (Nata-wound Skin Appearance) Assessed Scarring -Moisture (Nata-wound Skin Appearance) Assessed Dry/Scaly -Color (Nata-wound Skin Appearance) Assessed Hemosiderin Staining -Temperature (Nata-wound Skin No Abnormality No Abnormality Appearance) (Pt Warm) (Pt Warm) -Tenderness on Palpation (Nata-wound No No Skin Appearance) -Ulcer Cleansing Soap and Water Soap and Water -Foul Odor after Cleansing No No -Anesthetic Used 5% Lidocaine Gel Lower Limb Edema Present NA WC - Nurse 2 - General Ulcer CM Notes Start: 04/25/22 09:55 Freq: Status: Active Protocol: Activity Type Activity Date Activity User E-sign Co-sign Detail Recorded Client Recorded Date Recorded By Document 04/25/22 10:17 MW [id number] 04/25/22 10:25 MW Document 05/02/22 10:22 MW [id number] 05/02/22 10:33 MW 04/25/22 05/02/22 10:17 10:22 Wound Center Nurse 2 #3 L FOOT 3/4 WEBSPACE -Time 10:17 10:22 -Correct Patient Yes Yes -Correct Side, Site, Position Yes Yes -Correct Procedure Yes Yes -Procedure Performed Yes Yes -Type of Procedure Debridement Debridement -Clinical Debridement Subcutaneous Subcutaneous -Tissue Removed Subcutaneous Subcutaneous -Post Debridement (cm) - Length 1.3 1.4 -Post Debridement (cm) - Width 0.6 0.5 -Post Debridement (cm) - Depth 0.1 0.1 -Total Square (Post) (cm) 0.78 0.70 -Area of Debridement (cm) - Length 1.3 1.4 -Area of Debridement (cm) - Width 0.6 0.5 -Total Square (Area) (cm) 0.78 0.70 -Tunneling No No -Undermining/Tunneling No No -Circular Undermining No No -Wound/Ulcer Outcome Not Healed Not Healed -Ulcer Cleansing Rinsed/ Rinsed/ Irrigated with Irrigated with Saline Saline -Foul Odor after Cleansing No No -Bioengineered Tissue Yes Yes -Type of Bioengineered Tissue Epifix 18mm Epifix 18mm Disc Disc -Expiration Date 01/21/27 01/21/27 -Product Lot Number [id number] -Percent Used 100 100 -Lot number of Saline Used [id number] -Bleeding Controlled with Pressure Pressure -Treatment Response Procedure Procedure Tolerated Well Tolerated Well -Offloading No No -Debridement - Subq, 1st 20sq cm No No -Apply Skin Sub - 1st 25 sq cm - Feet 1 1 -Epifix 18mm Disc 3 3 Pain Scale: 0-10 Numeric Is Patient Pain Free? Yes Yes WC - Nurse 3 - General Ulcer D/C NN Start: 04/25/22 09:55 Freq: Status: Active Protocol: Activity Type Activity Date Activity User E-sign Co-sign Detail Recorded Client Recorded Date Recorded By Document 04/25/22 10:34 DL [id number] 04/25/22 10:36 DL Document 05/02/22 10:40 MW [id number] 05/02/22 10:41 MW 04/25/22 05/02/22 10:34 10:40 Wound Care Nurse 3 #3 L FOOT 3/4 WEBSPACE -Ulcer Cleansing Not Cleansed -Foul Odor after Cleansing No -Negative Pressure Wound Therapy N/A -Primary Dressing Applied Aquacel Extra Aquacel Extra -Other Dressing epifix ABD -Primary Dressing Covered/Secured with Dry Gauze, Secured with Secured with Tape Tape -Aquacel Extra 1 1 Treatment Response Procedure Procedure Tolerated Well Tolerated Well Pain Scale: 0-10 Numeric Is Patient Pain Free? Yes Yes Teaching: Wound Center Dressing Your Wound -Person Taught Patient -Teaching Method Discussion -Response to teaching Verbalize understanding WC - Visit Discharge Discharge Condition Stable Stable Ambulatory Status Wheelchair Ambulatory Transportation Private Auto Private Auto Accompanied by SELF Medication Reconcilliation completed & No provided to patient/care provider Clinical Summary of Care Provided Yes Assessment/Plan Assessment/Plan (1) Ulcer of left foot with fat layer exposed: CODE(S): L97.522 - Non-pressure chronic ulcer of other part of left foot with fat layer exposed (2) Paraplegia: CODE(S): G82.20 - Paraplegia, unspecified PLAN: Plan Debridement done as documented above, procedure was well-tolerated. 8th application of epi fix done today using 100% of product. Moistened with saline, covered with Adaptic touch. No Steri-Strips applied. Leave in place for a week. Aquacel and ABD over top to help with drainage, change every other or third day . Tubigrip for compression, leg elevation, exercise as tolerated, vitamin C, D and zinc discussed. His questions were answered and he was advised to call with any further questions or concerns. Follow-up in a week or sooner if needed. This note was generated with [employer] dictation software. It may contain incorrect words, spelling, and punctuation that were not noted in checking the note before signing.
[2022-05-09 10:33] VITALS: BP 120/63; PULSE 80; TEMP 35.8; BMI 22.3
--- NOTE | 2022-05-09 11:13 | PN.PCM_ITS ---
History of Present Illness Date of Service: 05/09/22 Chief Complaint: Left Foot Ulcer History of Wound: Mr. Bailey is a 36 yo who presents to the wound center due to non healing left foot ulcer. Noted initially in October/November, he denies any known precipitating factor. History of Paraplegia and has no feeling in his feet. He has been seeing Podiatry at the [facility]. Has had some debridement done and has been applying Megan without any significant improvement. He denies any significant drainage. No chills, fever or feeling of unwell. Progress of Wound: Has had 8 applications of epi fix so far. Slowly improving. Some concerns noted. Objective Data Objective Data Vital Signs: Vital Signs Temp Pulse Resp BP O2 Del Method 96.4 F L 80 18 120/63 Room Air 05/09/22 10:33 05/09/22 10:33 05/02/22 09:45 05/09/22 10:33 04/25/22 09:56 Oxygen Delivery Method Room Air Weight: 160 lb Body Mass Index (BMI) 22.3 Charges/Coding Procedures Integumentary 150xxx-152xx: 30553 Skin sub graft trnk/arm/leg Physical Exam Const alert, oriented x3 and no apparent distress General Appearance: cooperative and comfortable HEENT normocephalic, head/scalp atraumatic and hearing grossly normal bilaterally Eyes EOMs intact bilaterally Neck full ROM and supple General: normal visual inspection Resp normal respiratory effort Effort and Inspection: able to speak in complete sentences Skin Wounds: wounds noted Neuro oriented x3 and CN's II-XII intact bilaterally Psych mental status grossly normal, thought process normal, cooperative, affect normal and speech normal Debridement Note Debridement Note Wound debrided: Left Foot Type of Debridement: Excisional debridement Anesthesia Used: 4% Lidocaine Solution Depth: Down to and including healthy tissue and in the subcutaneous layer Percentage of wound debrided: 100 Instrument Used: 3mm curette Tissue Removed: Slough and devitalized tissue Severity: Fat Layer Exposed Amount of bleeding with debridement: Mild Bleeding Controlled with: Pressure Patient tolerated procedure: Patient tolerated procedure well Post-Debridement Measurements and Additional Note: Post-Debridement Measurements/Treatment SRUTHI - Nurse 1 - General Ulcer Assessment Start: 04/25/22 09:55 Freq: Status: Active Protocol: ADEEL Activity Type Activity Date Activity User E-sign Co-sign Detail Recorded Client Recorded Date Recorded By Document 04/25/22 09:56 MT [id number] 04/25/22 10:02 MT Document 05/02/22 09:45 DL [id number] 05/02/22 09:52 DL Document 05/09/22 10:33 [facility] [id number] 05/09/22 10:41 BMF 04/25/22 05/02/22 05/09/22 09:56 09:45 10:33 - Today's Visit Information Type of service Follow-up Visit Follow-up Visit Follow-up Visit (Physician/MICROBIOLOGY LAB MANAGER (Physician/MICROBIOLOGY LAB MANAGER (Physician/MICROBIOLOGY LAB MANAGER ) ) ) Arrival Mode Wheelchair Ambulatory, Wheelchair Wheelchair Transfer Assistance None None Accompanied by girlfriend Patient Identification Verified (Name & Yes Yes Yes ) Patient Requires Transmission-Based No No Precautions Safety Precautions Fall Prevention Height and Weight Body Mass Index (BMI) 22.3 22.3 22.3 BMI Classification Normal Normal Normal Vital Signs Temperature (97.8 F-99.1 F) 97 F L 97.6 F L 96.4 F L Temperature Source Temporal Temporal Temporal Pulse Rate (60-100) 74 64 80 Pulse Location Monitor Monitor Monitor Respiratory Rate (12-18) 18 18 Respiratory rate source Observation Observation Oxygen Delivery Method Room Air Blood Pressure (90/60-120/80) 120/74 133/70 H 120/63 Blood Pressure Mean (mm Hg) 89 91 82 Source Monitor Monitor Monitor Position Sitting Sitting Blood Pressure Location Left Arm Left Arm History Since Last Visit- (Skip if this is Patient's initial visit) Have you changed medications since your No No last visit? Any new allergies or adverse reactions No No Had a fall/change in ADL's that may No No increase risk of falls Signs or symptoms of abuse and/or No No neglect since last visit Have you been in the hospital since your No No No last visit? Has dressing in place as prescribed Yes No Yes Has compression in place as prescribed Yes N/A N/A Has offloadiing in place as prescribed Yes Yes N/A Experienced any changes in pain level or Yes No No management Left Footwear Regular Shoe Regular Shoe Right Footwear Regular Shoe Regular Shoe Pain Scale: 0-10 Numeric Is Patient Pain Free? Yes Yes Yes - Nurse 1 - General Ulcer Measurement Start: 04/25/22 09:55 Freq: Status: Active Protocol: Activity Type Activity Date Activity User E-sign Co-sign Detail Recorded Client Recorded Date Recorded By Document 04/25/22 09:56 CA [id number] 04/25/22 10:02 MT Document 05/02/22 09:45 DL [id number] 05/02/22 09:52 DL Document 05/09/22 10:33 [facility] [id number] 05/09/22 10:41 BM 04/25/22 05/02/22 05/09/22 09:56 09:45 10:33 Wound Center Nurse 1 #3 L FOOT 3/4 WEBSPACE -Combined with other wound No -Current Size (cm) - Length 0.1 1.1 1.4 -Current Size (cm) - Width 0.1 0.4 0.7 -Current Size (cm) - Depth 0.1 0.1 0.2 -Total Square Cm 0.01 0.44 0.98 -Photo Taken No No -Epithelialization Small 1-33% -Tunneling No -Undermining/Tunneling No -Circular Undermining No -Exudate Amt Small Small -Exudate Type Serosanguineous Serosanguineous -Wound Margin Flat & Intact Flat & Intact -Granulation Amt Medium (34-66%) Small (1-33%) -Granulation Quality Pale,[place],Red Red -Slough/Fibrin Yes -Necrosis Amt Medium (34-66%) None Present (0 Large (67-100%) %) -Necrotic Tissue Type Adherent Slough Adherent Slough -Structure Exposed N/A -Texture (Nata-wound Skin Appearance) Assessed Scarring Assessed, Scarring -Moisture (Nata-wound Skin Appearance) Assessed Dry/Scaly Assessed,Dry/ Scaly -Color (Nata-wound Skin Appearance) Assessed Hemosiderin Assessed, Staining Erythema -Temperature (Nata-wound Skin No Abnormality No Abnormality No Abnormality Appearance) (Pt Warm) (Pt Warm) (Pt Warm) -Tenderness on Palpation (Nata-wound No No No Skin Appearance) -Ulcer Cleansing Soap and Water Soap and Water Soap and Water -Foul Odor after Cleansing No No No -Anesthetic Used 5% Lidocaine Gel Lower Limb Edema Present NA WC - Nurse 2 - General Ulcer CM Notes Start: 04/25/22 09:55 Freq: Status: Active Protocol: Activity Type Activity Date Activity User E-sign Co-sign Detail Recorded Client Recorded Date Recorded By Document 04/25/22 10:17 MW [id number] 04/25/22 10:25 MW Document 05/02/22 10:22 MW [id number] 05/02/22 10:33 MW Document 05/09/22 10:50 MW [id number] 05/09/22 10:59 MW 04/25/22 05/02/22 05/09/22 10:17 10:22 10:50 Wound Center Nurse 2 #3 L FOOT 3/4 WEBSPACE -Time 10:17 10:22 10:57 -Correct Patient Yes Yes Yes -Correct Side, Site, Position Yes Yes Yes -Correct Procedure Yes Yes Yes -Procedure Performed Yes Yes Yes -Type of Procedure Debridement Debridement Debridement -Clinical Debridement Subcutaneous Subcutaneous Subcutaneous -Tissue Removed Subcutaneous Subcutaneous Subcutaneous -Post Debridement (cm) - Length 1.3 1.4 1.5 -Post Debridement (cm) - Width 0.6 0.5 0.6 -Post Debridement (cm) - Depth 0.1 0.1 0.1 -Total Square (Post) (cm) 0.78 0.70 0.90 -Area of Debridement (cm) - Length 1.3 1.4 1.5 -Area of Debridement (cm) - Width 0.6 0.5 0.6 -Total Square (Area) (cm) 0.78 0.70 0.90 -Tunneling No No No -Undermining/Tunneling No No No -Circular Undermining No No No -Wound/Ulcer Outcome Not Healed Not Healed Not Healed -Ulcer Cleansing Rinsed/ Rinsed/ Rinsed/ Irrigated with Irrigated with Irrigated with Saline Saline Saline -Foul Odor after Cleansing No No No -Bioengineered Tissue Yes Yes Yes -Type of Bioengineered Tissue Epifix 18mm Epifix 18mm Epifix 18mm Disc Disc Disc -Expiration Date 01/21/27 01/21/27 01/21/27 -Product Lot Number [id number] -Percent Used 100 100 100 -Lot number of Saline Used [id number] -Bleeding Controlled with Pressure Pressure Pressure -Treatment Response Procedure Procedure Procedure Tolerated Well Tolerated Well Tolerated Well -Offloading No No No -Debridement - Subq, 1st 20sq cm No No No -Apply Skin Sub - 1st 25 sq cm - Feet 1 1 1 -Epifix 18mm Disc 3 3 3 Pain Scale: 0-10 Numeric Is Patient Pain Free? Yes Yes Yes WC - Nurse 3 - General Ulcer D/C NN Start: 04/25/22 09:55 Freq: Status: Active Protocol: Activity Type Activity Date Activity User E-sign Co-sign Detail Recorded Client Recorded Date Recorded By Document 04/25/22 10:34 DL [id number] 04/25/22 10:36 DL Document 05/02/22 10:40 MW [id number] 05/02/22 10:41 MW Document 05/09/22 11:08 DL [id number] 05/09/22 11:12 DL 04/25/22 05/02/22 05/09/22 10:34 10:40 11:08 Wound Care Nurse 3 #3 L FOOT 3/4 WEBSPACE -Ulcer Cleansing Not Cleansed -Foul Odor after Cleansing No No -Negative Pressure Wound Therapy N/A -Primary Dressing Applied Aquacel Extra Aquacel Extra -Other Dressing epifix ABD epifix/abd -Primary Dressing Covered/Secured with Dry Gauze, Secured with Secured with Secured with Tape Tape Tape -Aquacel Extra 1 1 Left -Tubular Bandage Double Layer -Size of Tubigrip Used Size D -Size D ($) 2 Treatment Response Procedure Procedure Procedure Tolerated Well Tolerated Well Tolerated Well Pain Scale: 0-10 Numeric Is Patient Pain Free? Yes Yes Yes Teaching: Wound Center Dressing Your Wound -Person Taught Patient -Teaching Method Discussion -Response to teaching Verbalize understanding WC - Visit Discharge Discharge Condition Stable Stable Stable Ambulatory Status Wheelchair Ambulatory Wheelchair Transportation Private Auto Private Auto Private Auto Accompanied by SELF Medication Reconcilliation completed & No provided to patient/care provider Clinical Summary of Care Provided Yes Assessment/Plan Assessment/Plan (1) Ulcer of left foot with fat layer exposed: CODE(S): L97.522 - Non-pressure chronic ulcer of other part of left foot with fat layer exposed (2) Paraplegia: CODE(S): G82.20 - Paraplegia, unspecified PLAN: Plan Debridement done as documented above, procedure was well-tolerated. 9th application of epi fix done today using 100% of product. Moistened with saline, covered with Adaptic touch. Leave in place for 2 weeks. Aquacel and ABD over top to help with drainage, change every other or third day. Culture taken due to slight change in size and maceration. I think this is due to poorly controlled edema. Has not been using his compression. Compliance with compression recommended, double layer Tubigrip for compression, leg elevation, exercise as tolerated, vitamin C, D. His questions were answered and he was advised to call with any further questions or concerns. Follow-up in 2 weeks. This note was generated with [employer] dictation software. It may contain incorrect words, spelling, and punctuation that were not noted in checking the note before signing.
== END 2022-05-22 23:59 | disposition home or self-care (01) ==
LOC: WC 09:30
PROVIDERS: PCP Family Medicine; Visit Provider Internal Medicine
DX: L97.522 Non-pressure chronic ulcer of other part of left foot with fat layer exposed (principal); G82.20 Paraplegia, unspecified; Z79.899 Other long term (current) drug therapy
CPT/HCPCS: 15275; 87070; 87075; 87077; 87186; 87205; Q4186

== ENCOUNTER 2022-06-20 09:45 | Outpatient (RCR) | payer MEDICARE, MEDICAID, SELFPAY ==
[2022-05-23 00:32] VITALS: BP 120/63; PULSE 80; RESP 18; TEMP 35.8; BMI 22.3
[2022-06-06 09:59] VITALS: BP 134/84; PULSE 79; RESP 16; TEMP 35.6; BMI 22.3
--- NOTE | 2022-06-06 10:29 | PCM.WC.PN ---
History of Present Illness Date of Service: 06/06/22 Chief Complaint: Left Foot Ulcer History of Wound: Mr. Bailey is a 36 yo who presents to the wound center due to non healing left foot ulcer. Noted initially in October/November, he denies any known precipitating factor. History of Paraplegia and has no feeling in his feet. He has been seeing Podiatry at the [facility]. Has had some debridement done and has been applying Megan without any significant improvement. He denies any significant drainage. No chills, fever or feeling of unwell. Progress of Wound: Missed a couple appointments. Has had 9 applications of epi fix however out of the 12-week period for the 10th application. Has been applying Promogran, some improvement since his last visit. He denies any new concerns at this time. Objective Data Objective Data Vital Signs: Vital Signs Temp Pulse Resp BP O2 Del Method 96.1 F L 79 16 134/84 H Room Air 06/06/22 09:59 06/06/22 09:59 06/06/22 09:59 06/06/22 09:59 06/06/22 09:59 Oxygen Delivery Method Room Air Weight: 160 lb Body Mass Index (BMI) 22.3 Charges/Coding Procedures Integumentary 111xxx-113xx: 53330 Maria Esther subq tissue 20 sq cm/< Physical Exam Const alert, oriented x3 and no apparent distress General Appearance: cooperative and comfortable HEENT normocephalic, head/scalp atraumatic and hearing grossly normal bilaterally Eyes EOMs intact bilaterally Neck full ROM and supple General: normal visual inspection Resp normal respiratory effort Effort and Inspection: able to speak in complete sentences Skin Wounds: wounds noted Neuro oriented x3 and CN's II-XII intact bilaterally Psych mental status grossly normal, thought process normal, cooperative, affect normal and speech normal Debridement Note Debridement Note Wound debrided: Left Foot Type of Debridement: Excisional debridement Anesthesia Used: 4% Lidocaine Solution Depth: Down to and including healthy tissue and in the subcutaneous layer Percentage of wound debrided: 100 Instrument Used: 3mm curette Tissue Removed: Slough and devitalized tissue Severity: Fat Layer Exposed Amount of bleeding with debridement: Mild Bleeding Controlled with: Compression and gauze Patient tolerated procedure: Patient tolerated procedure well Post-Debridement Measurements and Additional Note: Post-Debridement Measurements/Treatment WC - Nurse 1 - General Ulcer Assessment Start: 06/06/22 09:58 Freq: Status: Active Protocol: ADEEL Activity Type Activity Date Activity User E-sign Co-sign Detail Recorded Client Recorded Date Recorded By Document 06/06/22 09:59 [facility] [id number] 06/06/22 10:07 [facility] 06/06/22 09:59 - Today's Visit Information Type of service 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 ) Arrival Mode Wheelchair Transfer Assistance None Patient Identification Verified (Name & Yes ) Patient Requires Transmission-Based No Precautions Height and Weight Body Mass Index (BMI) 22.3 BMI Classification Normal Vital Signs Temperature (97.8 F-99.1 F) 96.1 F L Temperature Source Temporal Pulse Rate (60-100) 79 Pulse Location Monitor Respiratory Rate (12-18) 16 Respiratory rate source Observation Oxygen Delivery Method Room Air Blood Pressure (90/60-120/80) 134/84 H Blood Pressure Mean (mm Hg) 100 Source Monitor Position Sitting Blood Pressure Location Left Arm History Since Last Visit- (Skip if this is Patient's initial visit) Have you changed medications since your No last visit? Any new allergies or adverse reactions No Had a fall/change in ADL's that may No increase risk of falls Signs or symptoms of abuse and/or No neglect since last visit Have you been in the hospital since your No last visit? Has dressing in place as prescribed Yes Has compression in place as prescribed N/A Has offloadiing in place as prescribed N/A Left Footwear Custom Shoe Right Footwear Custom Shoe Pain Scale: 0-10 Numeric Is Patient Pain Free? Yes - Nurse 1 - General Ulcer Measurement Start: 06/06/22 09:58 Freq: Status: Active Protocol: Activity Type Activity Date Activity User E-sign Co-sign Detail Recorded Client Recorded Date Recorded By Document 06/06/22 09:59 [facility] [id number] 06/06/22 10:07 [facility] 06/06/22 09:59 Wound Center Nurse 1 #3 L FOOT 3/4 WEBSPACE -Combined with other wound No -Current Size (cm) - Length 1.1 -Current Size (cm) - Width 0.5 -Current Size (cm) - Depth 0.1 -Total Square Cm 0.55 -Date of Last Picture (Recall this 06/06/22 field) -Photo Taken Yes -Epithelialization None Present -Tunneling No -Undermining/Tunneling No -Circular Undermining No -Exudate Amt Small -Exudate Type Serosanguineous -Wound Margin Flat & Intact -Granulation Amt None Present (0 %) -Slough/Fibrin Yes -Necrosis Amt Large (67-100%) -Necrotic Tissue Type Eschar -Texture (Nata-wound Skin Appearance) Assessed, Scarring -Moisture (Nata-wound Skin Appearance) Assessed -Color (Nata-wound Skin Appearance) Assessed, Erythema -Temperature (Nata-wound Skin No Abnormality Appearance) (Pt Warm) -Tenderness on Palpation (Nata-wound No Skin Appearance) -Ulcer Cleansing Rinsed/ Irrigated with Saline -Foul Odor after Cleansing No -Anesthetic Used 5% Lidocaine Gel WC - Nurse 2 - General Ulcer CM Notes Start: 06/06/22 09:58 Freq: Status: Active Protocol: Activity Type Activity Date Activity User E-sign Co-sign Detail Recorded Client Recorded Date Recorded By Document 06/06/22 10:14 MW [id number] 06/06/22 10:20 MW 06/06/22 10:14 Wound Center Nurse 2 -Time 10:14 -Correct Patient Yes -Correct Side, Site, Position Yes -Correct Procedure Yes -Procedure Performed Yes -Type of Procedure Debridement -Clinical Debridement Subcutaneous -Tissue Removed Subcutaneous -Post Debridement (cm) - Length 1.2 -Post Debridement (cm) - Width 0.5 -Post Debridement (cm) - Depth 0.1 -Total Square (Post) (cm) 0.60 -Area of Debridement (cm) - Length 1.2 -Area of Debridement (cm) - Width 0.5 -Total Square (Area) (cm) 0.60 -Tunneling No -Undermining/Tunneling No -Circular Undermining No -Wound/Ulcer Outcome Not Healed -Ulcer Cleansing Rinsed/ Irrigated with Saline -Foul Odor after Cleansing No -Bioengineered Tissue No -Bleeding Controlled with Pressure -Treatment Response Procedure Tolerated Well -Offloading No -Debridement - Subq, 1st 20sq cm Yes Pain Scale: 0-10 Numeric Is Patient Pain Free? Yes Assessment/Plan Assessment/Plan (1) Ulcer of left foot with fat layer exposed: CODE(S): L97.522 - Non-pressure chronic ulcer of other part of left foot with fat layer exposed (2) Paraplegia: CODE(S): G82.20 - Paraplegia, unspecified PLAN: Plan Some improvement since his last visit however as above, he is out of his 12-week period for the 10th application. He has also been on antibiotics following culture and sensitivity, tolerating this well. Switch to Promogran and mupirocin. Apply thin layer of mupirocin evenly to the area and then moistened Promogran over top, cover with gauze and tape. Compliance with compression recommended, double layer Tubigrip for compression, leg elevation, exercise as tolerated, vitamin C, D. His questions were answered and he was advised to call with any further questions or concerns. Follow-up in 2 weeks. This note was generated with Mobe[employer] dictation software. It may contain incorrect words, spelling, and punctuation that were not noted in checking the note before signing.
[2022-06-20 09:45] VITALS: BP 112/62; PULSE 92; RESP 18; TEMP 35.9; BMI 22.3
--- NOTE | 2022-06-20 10:16 | PCM.WC.PN ---
History of Present Illness Date of Service: 06/20/22 Chief Complaint: Left Foot Ulcer History of Wound: Mr. Bailey is a 36 yo who presents to the wound center due to non healing left foot ulcer. Noted initially in October/November, he denies any known precipitating factor. History of Paraplegia and has no feeling in his feet. He has been seeing Podiatry at the [facility]. Has had some debridement done and has been applying Megan without any significant improvement. He denies any significant drainage. No chills, fever or feeling of unwell. Progress of Wound: No new concerns at this time. No significant change in the past week. Has been doing dressing changes as recommended. Objective Data Objective Data Vital Signs: Vital Signs Temp Pulse Resp BP O2 Del Method 96.6 F L 92 18 112/62 Room Air 06/20/22 09:45 06/20/22 09:45 06/20/22 09:45 06/20/22 09:45 06/06/22 09:59 Oxygen Delivery Method Room Air Weight: 160 lb Body Mass Index (BMI) 22.3 Charges/Coding Procedures Integumentary 111xxx-113xx: 90816 Maria Esther subq tissue 20 sq cm/< Physical Exam Const alert, oriented x3 and no apparent distress General Appearance: cooperative and comfortable HEENT normocephalic, head/scalp atraumatic and hearing grossly normal bilaterally Eyes EOMs intact bilaterally Neck full ROM and supple General: normal visual inspection Resp normal respiratory effort Effort and Inspection: able to speak in complete sentences Skin Wounds: wounds noted Neuro oriented x3 and CN's II-XII intact bilaterally Psych mental status grossly normal, thought process normal, cooperative, affect normal and speech normal Debridement Note Debridement Note Wound debrided: Left Foot Type of Debridement: Excisional debridement Anesthesia Used: 4% Lidocaine Solution Depth: Down to and including healthy tissue and in the subcutaneous layer Percentage of wound debrided: 100 Instrument Used: 3mm curette Tissue Removed: Slough and devitalized tissue Severity: Fat Layer Exposed Amount of bleeding with debridement: Mild Bleeding Controlled with: Compression and gauze Patient tolerated procedure: Patient tolerated procedure well Post-Debridement Measurements and Additional Note: Post-Debridement Measurements/Treatment SRUTHI - Nurse 1 - General Ulcer Assessment Start: 06/06/22 09:58 Freq: Status: Active Protocol: ADEEL Activity Type Activity Date Activity User E-sign Co-sign Detail Recorded Client Recorded Date Recorded By Document 06/06/22 09:59 [facility] [id number] 06/06/22 10:07 [facility] Document 06/20/22 09:45 DL [id number] 06/20/22 09:52 DL 06/06/22 06/20/22 09:59 09:45 - Today's Visit Information Type of service Follow-up Visit Follow-up Visit (Physician/SAUSAGE GRINDER (Physician/SAUSAGE GRINDER ) ) Arrival Mode Wheelchair Wheelchair Transfer Assistance None None Patient Identification Verified (Name & Yes Yes ) Patient Requires Transmission-Based No No Precautions Height and Weight Body Mass Index (BMI) 22.3 22.3 BMI Classification Normal Normal Vital Signs Temperature (97.8 F-99.1 F) 96.1 F L 96.6 F L Temperature Source Temporal Temporal Pulse Rate (60-100) 79 92 Pulse Location Monitor Monitor Respiratory Rate (12-18) 16 18 Respiratory rate source Observation Observation Oxygen Delivery Method Room Air Blood Pressure (90/60-120/80) 134/84 H 112/62 Blood Pressure Mean (mm Hg) 100 78 Source Monitor Position Sitting Blood Pressure Location Left Arm History Since Last Visit- (Skip if this is Patient's initial visit) Have you changed medications since your No No last visit? Any new allergies or adverse reactions No No Had a fall/change in ADL's that may No No increase risk of falls Signs or symptoms of abuse and/or No No neglect since last visit Have you been in the hospital since your No No last visit? Has dressing in place as prescribed Yes Yes Has compression in place as prescribed N/A N/A Has offloadiing in place as prescribed N/A Experienced any changes in pain level or No management Left Footwear Custom Shoe Regular Shoe Right Footwear Custom Shoe Regular Shoe Pain Scale: 0-10 Numeric Is Patient Pain Free? Yes Yes - Nurse 1 - General Ulcer Measurement Start: 06/06/22 09:58 Freq: Status: Active Protocol: Activity Type Activity Date Activity User E-sign Co-sign Detail Recorded Client Recorded Date Recorded By Document 06/06/22 09:59 [facility] [id number] 06/06/22 10:07 [facility] Document 12/29/22 09:45 DL [id number] 06/20/22 09:52 DL 06/06/22 06/20/22 09:59 09:45 Wound Center Nurse 1 #3 L FOOT 3/4 WEBSPACE -Combined with other wound No -Current Size (cm) - Length 1.1 0.8 -Current Size (cm) - Width 0.5 0.5 -Current Size (cm) - Depth 0.1 0.1 -Total Square Cm 0.55 0.40 -Date of Last Picture (Recall this 06/06/22 field) -Photo Taken Yes Yes -Epithelialization None Present -Tunneling No -Undermining/Tunneling No -Circular Undermining No -Exudate Amt Small Small -Exudate Type Serosanguineous Serosanguineous -Wound Margin Flat & Intact Distinct, Outline Attached -Granulation Amt None Present (0 Small (1-33%) %) -Granulation Quality Loda -Slough/Fibrin Yes -Necrosis Amt Large (67-100%) Small (1-33%) -Necrotic Tissue Type Eschar Adherent Slough -Structure Exposed N/A -Texture (Nata-wound Skin Appearance) Assessed, Rash Scarring -Moisture (Nata-wound Skin Appearance) Assessed No Abnormality -Color (Nata-wound Skin Appearance) Assessed, No Abnormality, Erythema Hemosiderin Staining -Temperature (Nata-wound Skin No Abnormality No Abnormality Appearance) (Pt Warm) (Pt Warm) -Tenderness on Palpation (Nata-wound No No Skin Appearance) -Ulcer Cleansing Rinsed/ Wound Cleanser Irrigated with Saline -Foul Odor after Cleansing No -Anesthetic Used 5% Lidocaine 5% Lidocaine Gel Gel WC - Nurse 2 - General Ulcer CM Notes Start: 06/06/22 09:58 Freq: Status: Active Protocol: Activity Type Activity Date Activity User E-sign Co-sign Detail Recorded Client Recorded Date Recorded By Document 06/06/22 10:14 MW [id number] 06/06/22 10:20 MW Document 06/20/22 10:03 [id number] 06/20/22 10:08 SHAYNE 06/06/22 06/20/22 10:14 10:03 Wound Center Nurse 2 #3 L FOOT 3/4 WEBSPACE -Time 10:14 10:03 -Correct Patient Yes Yes -Correct Side, Site, Position Yes Yes -Correct Procedure Yes Yes -Procedure Performed Yes Yes -Type of Procedure Debridement Debridement -Clinical Debridement Subcutaneous Subcutaneous -Tissue Removed Subcutaneous Subcutaneous -Post Debridement (cm) - Length 1.2 1.1 -Post Debridement (cm) - Width 0.5 0.8 -Post Debridement (cm) - Depth 0.1 0.1 -Total Square (Post) (cm) 0.60 0.88 -Area of Debridement (cm) - Length 1.2 1.1 -Area of Debridement (cm) - Width 0.5 0.8 -Total Square (Area) (cm) 0.60 0.88 -Tunneling No No -Undermining/Tunneling No No -Circular Undermining No No -Wound/Ulcer Outcome Not Healed Not Healed -Ulcer Cleansing Rinsed/ Rinsed/ Irrigated with Irrigated with Saline Saline -Foul Odor after Cleansing No No -Bioengineered Tissue No No -Bleeding Controlled with Pressure Pressure -Treatment Response Procedure Procedure Tolerated Well Tolerated Well -Offloading No No -Debridement - Subq, 1st 20sq cm Yes Yes Pain Scale: 0-10 Numeric Is Patient Pain Free? Yes Yes - Nurse 3 - General Ulcer D/C NN Start: 06/06/22 09:58 Freq: Status: Active Protocol: Activity Type Activity Date Activity User E-sign Co-sign Detail Recorded Client Recorded Date Recorded By Document 06/06/22 10:29 MW [id number] 06/06/22 10:30 MW 06/06/22 10:29 Wound Care Nurse 3 #3 L FOOT 3/4 WEBSPACE -Ulcer Cleansing Rinsed/ Irrigated with Saline -Foul Odor after Cleansing No -Negative Pressure Wound Therapy N/A -Primary Dressing Applied Promogran -Other Dressing bactroban -Primary Dressing Covered/Secured with Secured with Tape -Other Covering abd pad -Promogran 1 Treatment Response Procedure Tolerated Well Pain Scale: 0-10 Numeric Is Patient Pain Free? Yes Teaching: Wound Center Dressing Your Wound -Person Taught Patient -Teaching Method Discussion -Response to teaching Verbalize understanding WC - Visit Discharge Discharge Condition Stable Ambulatory Status Wheelchair Transportation Private Auto Accompanied by self Medication Reconcilliation completed & No provided to patient/care provider Clinical Summary of Care Provided Yes Assessment/Plan Assessment/Plan (1) Ulcer of left foot with fat layer exposed: CODE(S): L97.522 - Non-pressure chronic ulcer of other part of left foot with fat layer exposed (2) Paraplegia: CODE(S): G82.20 - Paraplegia, unspecified PLAN: Plan Debridement done as documented above, procedure was well-tolerated. No significant change in the past week. Continue Promogran and mupirocin. Apply thin layer of mupirocin evenly to the area and then moistened Promogran over top, cover with gauze and tape. Compliance with compression recommended, double layer Tubigrip for compression, leg elevation, exercise as tolerated, vitamin C, D. His questions were answered and he was advised to call with any further questions or concerns. Follow-up in 2 weeks. This note was generated with [employer] dictation software. It may contain incorrect words, spelling, and punctuation that were not noted in checking the note before signing.
== END 2022-06-22 23:59 | disposition home or self-care (01) ==
LOC: WC 09:45
PROVIDERS: PCP Family Medicine; Visit Provider Internal Medicine
DX: L97.522 Non-pressure chronic ulcer of other part of left foot with fat layer exposed (principal); G82.20 Paraplegia, unspecified; Z79.899 Other long term (current) drug therapy
CPT/HCPCS: 11042

== ENCOUNTER 2022-07-18 09:45 | Outpatient (RCR) | payer MEDICARE, MEDICAID, SELFPAY ==
[2022-06-23 00:26] VITALS: BP 112/62; PULSE 92; RESP 18; TEMP 35.9; BMI 22.3
[2022-07-04 09:53] VITALS: BP 111/60; PULSE 88; RESP 18; TEMP 36.1; BMI 22.3
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
[2022-07-18 10:00] VITALS: BP 115/67; PULSE 65; RESP 18; TEMP 36.3; BMI 22.3
--- NOTE | 2022-07-18 12:43 | PN.PCM_ITS ---
History of Present Illness Date of Service: 07/18/22 Chief Complaint: Left Foot Ulcer History of Wound: Mr. Bailey is a 36 yo who presents to the wound center due to non healing left foot ulcer. Noted initially in October/November, he denies any known precipitating factor. History of Paraplegia and has no feeling in his feet. He has been seeing Podiatry at the [facility]. Has had some debridement done and has been applying Megan without any significant improvement. He denies any significant drainage. No chills, fever or feeling of unwell. Progress of Wound: No new concerns at this time. No significant change. Objective Data Objective Data Vital Signs: Vital Signs Temp Pulse Resp BP O2 Del Method 97.3 F L 65 18 115/67 Room Air 07/18/22 10:07/18/22 10:07/18/22 10:07/18/22 10:07/04/22 09:53 Oxygen Delivery Method Room Air Weight: 160 lb Body Mass Index (BMI) 22.3 Charges/Coding Procedures Integumentary 111xxx-113xx: 65520 Maria Esther subq tissue 20 sq cm/< Physical Exam Const alert, oriented x3 and no apparent distress General Appearance: cooperative and comfortable HEENT normocephalic, head/scalp atraumatic and hearing grossly normal bilaterally Eyes EOMs intact bilaterally Neck full ROM and supple General: normal visual inspection Resp normal respiratory effort Effort and Inspection: able to speak in complete sentences Skin Wounds: wounds noted Neuro oriented x3 and CN's II-XII intact bilaterally Psych mental status grossly normal, thought process normal, cooperative, affect normal and speech normal Debridement Note Debridement Note Wound debrided: Left foot Type of Debridement: Excisional debridement Anesthesia Used: 4% Lidocaine Solution Depth: Down to and including healthy tissue and in the subcutaneous layer Percentage of wound debrided: 100 Instrument Used: 3mm curette Tissue Removed: Slough and devitalized tissue Severity: Fat Layer Exposed Amount of bleeding with debridement: Mild Bleeding Controlled with: Pressure Patient tolerated procedure: Patient tolerated procedure well Post-Debridement Measurements and Additional Note: Post-Debridement Measurements/Treatment SRUTHI - Nurse 1 - General Ulcer Assessment Start: 07/04/22 09:51 Freq: Status: Active Protocol: ADEEL Activity Type Activity Date Activity User E-sign Co-sign Detail Recorded Client Recorded Date Recorded By Document 07/04/22 09:53 AK [id number] 07/04/22 10:01 MT Document 07/18/22 10:00 DL [id number] 07/18/22 10:08 DL 07/04/22 07/18/22 09:53 10:00 - Today's Visit Information Type of service Follow-up Visit Follow-up Visit (Physician/DEPUTY ADMINISTRATOR (Physician/DEPUTY ADMINISTRATOR ) ) Arrival Mode Wheelchair Patient Identification Verified (Name & Yes Yes ) Patient Requires Transmission-Based No Precautions Height and Weight Body Mass Index (BMI) 22.3 22.3 BMI Classification Normal Normal Vital Signs Temperature (97.8 F-99.1 F) 97 F L 97.3 F L Temperature Source Temporal Temporal Pulse Rate (60-100) 88 65 Pulse Location Monitor Monitor Respiratory Rate (12-18) 18 18 Respiratory rate source Observation Observation Oxygen Delivery Method Room Air Blood Pressure (90/60-120/80) 111/60 115/67 Blood Pressure Mean (mm Hg) 77 83 Source Monitor Monitor Position Semi-Fowlers Blood Pressure Location Left Arm History Since Last Visit- (Skip if this is Patient's initial visit) Have you changed medications since your No last visit? Any new allergies or adverse reactions No Had a fall/change in ADL's that may No increase risk of falls Signs or symptoms of abuse and/or No neglect since last visit Have you been in the hospital since your Yes No last visit? Has dressing in place as prescribed Yes No Has compression in place as prescribed Yes N/A Has offloadiing in place as prescribed Yes Yes Experienced any changes in pain level or Yes No management Left Footwear Regular Shoe Right Footwear Regular Shoe Pain Scale: 0-10 Numeric Is Patient Pain Free? Yes Yes - Nurse 1 - General Ulcer Measurement Start: 07/04/22 09:51 Freq: Status: Active Protocol: Activity Type Activity Date Activity User E-sign Co-sign Detail Recorded Client Recorded Date Recorded By Document 07/04/22 09:53 AK [id number] 07/04/22 10:01 MT Document 07/18/22 10:00 DL [id number] 07/18/22 10:08 DL 07/04/22 07/18/22 09:53 10:00 Wound Center Nurse 1 #3 L FOOT 3/4 WEBSPACE -Current Size (cm) - Length 1.3 1.2 -Current Size (cm) - Width 0.6 0.6 -Current Size (cm) - Depth 0.1 0.2 -Total Square Cm 0.78 0.72 -Photo Taken No -Exudate Amt Small Small -Exudate Type Serosanguineous Serosanguineous -Wound Margin Flat & Intact Distinct, Outline Attached -Granulation Amt Medium (34-66%) Large (67-100%) -Granulation Quality Pale,[place],Red -Necrosis Amt Medium (34-66%) None Present (0 %) -Structure Exposed N/A -Texture (Nata-wound Skin Appearance) Assessed Scarring -Moisture (Nata-wound Skin Appearance) Assessed -Color (Nata-wound Skin Appearance) Assessed Hemosiderin Staining -Temperature (Nata-wound Skin No Abnormality No Abnormality Appearance) (Pt Warm) (Pt Warm) -Tenderness on Palpation (Nata-wound No No Skin Appearance) -Ulcer Cleansing Rinsed/ Rinsed/ Irrigated with Irrigated with Saline Saline -Foul Odor after Cleansing No No -Anesthetic Used 5% Lidocaine Gel Lower Limb Edema Present NA WC - Nurse 2 - General Ulcer CM Notes Start: 07/04/22 09:51 Freq: Status: Active Protocol: Activity Type Activity Date Activity User E-sign Co-sign Detail Recorded Client Recorded Date Recorded By Document 07/04/22 10:15 MW [id number] 07/04/22 10:22 MW Document 07/18/22 10:24 MW [id number] 07/18/22 10:26 MW 07/04/22 07/18/22 10:15 10:24 Wound Center Nurse 2 #3 L FOOT 3/4 WEBSPACE -Time 10:16 10:24 -Correct Patient Yes Yes -Correct Side, Site, Position Yes Yes -Correct Procedure Yes Yes -Procedure Performed Yes Yes -Type of Procedure Debridement -Type of Procedure Debridement -Clinical Debridement Subcutaneous Subcutaneous -Tissue Removed Subcutaneous Subcutaneous -Post Debridement (cm) - Length 1.5 1.3 -Post Debridement (cm) - Width 0.5 0.8 -Post Debridement (cm) - Depth 0.1 0.1 -Total Square (Post) (cm) 0.75 1.04 -Area of Debridement (cm) - Length 1.5 1.3 -Area of Debridement (cm) - Width 0.5 0.8 -Total Square (Area) (cm) 0.75 1.04 -Tunneling No No -Undermining/Tunneling No No -Circular Undermining No No -Wound/Ulcer Outcome Not Healed Not Healed -Ulcer Cleansing Rinsed/ Rinsed/ Irrigated with Irrigated with Saline Saline -Foul Odor after Cleansing No No -Bioengineered Tissue No No -Bleeding Controlled with Pressure Pressure -Treatment Response Procedure Procedure Tolerated Well Tolerated Well -Offloading No No -Debridement - Subq, 1st 20sq cm Yes Yes Pain Scale: 0-10 Numeric Is Patient Pain Free? Yes Yes - Nurse 3 - General Ulcer D/C NN Start: 07/04/22 09:51 Freq: Status: Active Protocol: Activity Type Activity Date Activity User E-sign Co-sign Detail Recorded Client Recorded Date Recorded By Document 07/04/22 10:34 MT [id number] 07/04/22 10:36 MT Document 07/18/22 10:26 MW [id number] 07/18/22 10:28 MW 07/04/22 07/18/22 10:34 10:26 Wound Care Center Nurse 3 #3 L FOOT 3/4 WEBSPACE -Ulcer Cleansing Rinsed/ Irrigated with Saline -Foul Odor after Cleansing No -Negative Pressure Wound Therapy N/A -Primary Dressing Applied Aquacel Extra, NonAdherent Contact Layer -Other Dressing bactroban, bactroban aquacel extra, ointment cover with adaptic and abd pad -Primary Dressing Covered/Secured with Dry Gauze & Secured with Roll Gauze, Tape Secured with Tape -Other Covering ABD pad -Aquacel Extra 1 1 Treatment Response Procedure Tolerated Well Pain Scale: 0-10 Numeric Is Patient Pain Free? Yes Yes Teaching: Wound Center Dressing Your Wound -Person Taught Patient -Teaching Method Discussion -Response to teaching Verbalize understanding WC - Visit Discharge Discharge Condition Stable Stable Ambulatory Status Wheelchair Wheelchair Transportation Private Auto Private Auto Accompanied by significant other Medication Reconcilliation completed & No No provided to patient/care provider Clinical Summary of Care Provided Yes Yes Assessment/Plan Assessment/Plan (1) Ulcer of left foot with fat layer exposed: CODE(S): L97.522 - Non-pressure chronic ulcer of other part of left foot with fat layer exposed (2) Paraplegia: CODE(S): G82.20 - Paraplegia, unspecified PLAN: Plan Debridement done as documented above, procedure was well-tolerated. No significant change. Still not open to surgical wound closure but did schedule an appointment with Vascular surgery. Continue mupirocin, moistened Aquacel extra and cover with Adaptic. Compliance with compression recommended, double layer Tubigrip for compression, leg elevation, exercise as tolerated, vitamin C, D. His questions were answered and he was advised to call with any further questions or concerns. Follow-up in 2 weeks. This note was generated with [employer] dictation software. It may contain incorrect words, spelling, and punctuation that were not noted in checking the note before signing.
== END 2022-07-23 23:59 | disposition home or self-care (01) ==
LOC: WC 09:45
PROVIDERS: PCP Family Medicine; Visit Provider Internal Medicine
DX: L97.522 Non-pressure chronic ulcer of other part of left foot with fat layer exposed (principal); G82.20 Paraplegia, unspecified; Z79.899 Other long term (current) drug therapy
CPT/HCPCS: 11042

== ENCOUNTER 2022-08-15 09:36 | Outpatient (RCR) | payer MEDICARE, MEDICAID, SELFPAY ==
[2022-07-24 00:31] VITALS: BP 115/67; PULSE 65; RESP 18; TEMP 36.3; BMI 22.3
[2022-08-15 09:41] VITALS: BP 107/65; PULSE 112; RESP 20; TEMP 35.8; BMI 22.3
--- NOTE | 2022-08-15 10:13 | PCM.WC.PN ---
History of Present Illness Date of Service: 08/15/22 Chief Complaint: Left Foot Ulcer History of Wound: Mr. Bailey is a 36 yo who presents to the wound center due to non healing left foot ulcer. Noted initially in October/November, he denies any known precipitating factor. History of Paraplegia and has no feeling in his feet. He has been seeing Podiatry at the [facility]. Has had some debridement done and has been applying Megan without any significant improvement. He denies any significant drainage. No chills, fever or feeling of unwell. Progress of Wound: Improving. No new concerns at this time. Had a visit with Vascular surgery and no concerns/interventions recommended regarding arterials. Objective Data Objective Data Vital Signs: Vital Signs Temp Pulse Resp BP 96.4 F L 112 H 20 H 107/65 08/15/22 09:41 08/15/22 09:41 08/15/22 09:41 08/15/22 09:41 Weight: 160 lb Body Mass Index (BMI) 22.3 Charges/Coding Procedures Integumentary 111xxx-113xx: [id number] Maria Esther subq tissue 20 sq cm/< Physical Exam Const alert, oriented x3 and no apparent distress General Appearance: cooperative and comfortable HEENT normocephalic, head/scalp atraumatic and hearing grossly normal bilaterally Eyes EOMs intact bilaterally Neck full ROM and supple General: normal visual inspection Resp normal respiratory effort Effort and Inspection: able to speak in complete sentences Skin Wounds: wounds noted Neuro oriented x3 and CN's II-XII intact bilaterally Psych mental status grossly normal, thought process normal, cooperative, affect normal and speech normal Debridement Note Debridement Note Wound debrided: Left foot Type of Debridement: Excisional debridement Anesthesia Used: 5% Lidocaine Gel Depth: Down to and including healthy tissue and in the subcutaneous layer Percentage of wound debrided: 100 Instrument Used: 3mm curette Tissue Removed: Slough and devitalized tissue Severity: Fat Layer Exposed Amount of bleeding with debridement: Mild Bleeding Controlled with: Pressure Patient tolerated procedure: Patient tolerated procedure well Post-Debridement Measurements and Additional Note: Post-Debridement Measurements/Treatment SRUTHI - Nurse 1 - General Ulcer Assessment Start: 08/15/22 09:41 Freq: Status: Active Protocol: ADEEL Activity Type Activity Date Activity User E-sign Co-sign Detail Recorded Client Recorded Date Recorded By Document 08/15/22 09:41 DL [id number] 08/15/22 09:45 DL 08/15/22 09:41 WC - Today's Visit Information Type of service Follow-up Visit (Physician/UNATTENDED GROUND SENSOR SPECIALIST ) Arrival Mode Wheelchair Transfer Assistance None Patient Identification Verified (Name & Yes ) Patient Requires Transmission-Based No Precautions Height and Weight Body Mass Index (BMI) 22.3 BMI Classification Normal Vital Signs Temperature (97.8 F-99.1 F) 96.4 F L Temperature Source Temporal Pulse Rate (60-100) 112 H Pulse Location Monitor Respiratory Rate (12-18) 20 H Respiratory rate source Observation Blood Pressure (90/60-120/80) 107/65 Blood Pressure Mean (mm Hg) 79 Source Monitor History Since Last Visit- (Skip if this is Patient's initial visit) Have you changed medications since your No last visit? Any new allergies or adverse reactions No Had a fall/change in ADL's that may No increase risk of falls Signs or symptoms of abuse and/or No neglect since last visit Have you been in the hospital since your No last visit? Has dressing in place as prescribed Yes Has compression in place as prescribed N/A Has offloadiing in place as prescribed Yes Experienced any changes in pain level or No management Left Footwear Regular Shoe Right Footwear Regular Shoe Pain Scale: 0-10 Numeric Is Patient Pain Free? Yes - Nurse 1 - General Ulcer Measurement Start: 08/15/22 09:41 Freq: Status: Active Protocol: Activity Type Activity Date Activity User E-sign Co-sign Detail Recorded Client Recorded Date Recorded By Document 08/15/22 09:41 [id number] 08/15/22 09:45 08/15/22 09:41 Wound Center Nurse 1 #3 L FOOT 3/4 WEBSPACE -Current Size (cm) - Length 1 -Current Size (cm) - Width 0.5 -Current Size (cm) - Depth 0.1 -Total Square Cm 0.5 -Photo Taken Yes -Exudate Amt Small -Exudate Type Serosanguineous -Wound Margin Distinct, Outline Attached -Granulation Amt None Present (0 %) -Necrosis Amt Small (1-33%) -Necrotic Tissue Type Adherent Slough -Structure Exposed N/A -Texture (Nata-wound Skin Appearance) Scarring -Moisture (Nata-wound Skin Appearance) No Abnormality, Dry/Scaly -Color (Nata-wound Skin Appearance) Hemosiderin Staining -Temperature (Nata-wound Skin No Abnormality Appearance) (Pt Warm) -Ulcer Cleansing Rinsed/ Irrigated with Saline -Foul Odor after Cleansing No -Anesthetic Used 5% Lidocaine Gel SRUTHI - Nurse 2 - General Ulcer CM Notes Start: 08/15/22 09:41 Freq: Status: Active Protocol: Activity Type Activity Date Activity User E-sign Co-sign Detail Recorded Client Recorded Date Recorded By Document 08/15/22 10:03 MW [id number] 08/15/22 10:08 MW 08/15/22 10:03 Wound Center Nurse 2 -Time 10:03 -Correct Patient Yes -Correct Side, Site, Position Yes -Correct Procedure Yes -Procedure Performed Yes -Type of Procedure Debridement -Clinical Debridement Subcutaneous -Tissue Removed Subcutaneous -Post Debridement (cm) - Length 0.6 -Post Debridement (cm) - Width 0.3 -Post Debridement (cm) - Depth 0.1 -Total Square (Post) (cm) 0.18 -Area of Debridement (cm) - Length 0.6 -Area of Debridement (cm) - Width 0.3 -Total Square (Area) (cm) 0.18 -Tunneling No -Undermining/Tunneling No -Circular Undermining No -Wound/Ulcer Outcome Not Healed -Ulcer Cleansing Rinsed/ Irrigated with Saline -Foul Odor after Cleansing No -Bioengineered Tissue No -Bleeding Controlled with Pressure -Treatment Response Procedure Tolerated Well -Offloading No -Debridement - Subq, 1st 20sq cm Yes Pain Scale: 0-10 Numeric Is Patient Pain Free? Yes - Nurse 3 - General Ulcer D/C NN Start: 08/15/22 09:41 Freq: Status: Active Protocol: Activity Type Activity Date Activity User E-sign Co-sign Detail Recorded Client Recorded Date Recorded By Document 08/15/22 10:08 MW [id number] 08/15/22 10:09 MW 08/15/22 10:08 Wound Care Center Nurse 3 #3 L FOOT 3/4 WEBSPACE -Ulcer Cleansing Rinsed/ Irrigated with Saline -Foul Odor after Cleansing No -Negative Pressure Wound Therapy N/A -Primary Dressing Applied Aquacel Extra, NonAdherent Contact Layer -Primary Dressing Covered/Secured with Secured with Tape -Other Covering ABD PAD -Aquacel Extra 1 Treatment Response Procedure Tolerated Well Pain Scale: 0-10 Numeric Is Patient Pain Free? Yes Teaching: Wound Center Dressing Your Wound -Person Taught Patient -Teaching Method Discussion, Demonstration -Response to teaching Verbalize understanding WC - Visit Discharge Discharge Condition Stable Ambulatory Status Wheelchair Transportation Private Auto Accompanied by self Medication Reconcilliation completed & No provided to patient/care provider Clinical Summary of Care Provided Yes Assessment/Plan Assessment/Plan (1) Ulcer of left foot with fat layer exposed: CODE(S): L97.522 - Non-pressure chronic ulcer of other part of left foot with fat layer exposed (2) Paraplegia: CODE(S): G82.20 - Paraplegia, unspecified PLAN: Plan Debridement done as documented above, procedure was well-tolerated. Some improvement noted since his last visit. Continue mupirocin, moistened Aquacel extra and cover with Adaptic. ABD over top to help with drainage. Compliance with compression recommended, double layer Tubigrip for compression, leg elevation, exercise as tolerated, vitamin C, D. Prescription for hydrocortisone 2.5% cream given for left foot dermatitis, reevaluate at next visit. His questions were answered and he was advised to call with any further questions or concerns. Follow-up in 2 weeks. This note was generated with [employer] dictation software. It may contain incorrect words, spelling, and punctuation that were not noted in checking the note before signing.
== END 2022-08-20 23:59 | disposition home or self-care (01) ==
LOC: WC 09:36
PROVIDERS: PCP Family Medicine; Visit Provider Internal Medicine
DX: L97.522 Non-pressure chronic ulcer of other part of left foot with fat layer exposed (principal); G82.20 Paraplegia, unspecified; Z79.899 Other long term (current) drug therapy
CPT/HCPCS: 11042

== ENCOUNTER → 2022-08-23 | Outpatient (CLI) | payer MEDICARE, MEDICAID, SELFPAY ==
--- NOTE | 2022-08-23 15:05 | VDLE_ITS ---
Reason For Study: Swelling RIGHT LEFT CFV is compressible, spontaneous, phasic, CFV is compressible, spontaneous, phasic, competent and demonstrates normal competent, and demonstrates normal augmentation. augmentation. FV is compressible, spontaneous, phasic, FV is compressible, spontaneous, phasic, competent and demonstrates normal competent and demonstrates normal augmentation. augmentation. POP V is compressible, spontaneous, phasic, POP V is compressible, spontaneous, phasic, competent and demonstrates normal competent and demonstrates normal augmentation. augmentation. T/P Trunk is compressible. T/P Trunk is compressible. PTV is compressible. PTV is compressible. RT PerV is compressible. LT PerV is compressible. SFJ is competent and measures 0.73 x 0.88 cm. SFJ is competent and measures 0.75 x 0.73 cm. GSV proximal thigh measures 0.34 x 0.36 cm. GSV proximal thigh measures 0.39 x 0.38 cm. GSV at knee measures 0.28 x 0.29 cm. GSV at knee measures 0.34 x 0.32 cm. GSV INCOMPETENT throughout for greater than GSV INCOMPETENT throughout for greater than 0.5 seconds. 0.5 seconds. SSV at junction is competent and measures ASV from junction is INCOMPETENT for greater 0.24 x 0.24 cm. than 0.5 seconds and measures 0.30 x 0.31 cm. Procedure SSV at junction is INCOMPETENT for greater This is a venous duplex using B-mode, color than 0.5 seconds and measures 0.30 x 0.29 cm. flow and spectral Doppler. Exam performed in department. Patient was scanned in reverse Trendelenburg position during reflux assessment. VL/Venous Duplex US - Cornelio Extrem Interpretation Summary Deep veins of the bilateral lower extremities are patent and compressible segme ntally. There is no evidence of bilateral lower extremity deep vein thrombosis. The bilateral great saphenous veins appear patent and compressible segmentally. Positive for reflux in the right great saphenous vein Positive for reflux in the left great saphenous vein, left accessory saphenous vein, left small saphenous vein Ordering Physician: Rima Cota Referring Physician: Martin Gunter Performed By: Tena Nava RVT
== END | disposition home or self-care (01) ==
LOC: CVS 15:03
PROVIDERS: PCP Family Medicine; Visit Provider Physician Assistant
DX: M79.89 Other specified soft tissue disorders (principal)
CPT/HCPCS: 93970

== ENCOUNTER 2022-09-12 09:45 | Outpatient (RCR) | payer MEDICARE, MEDICAID, SELFPAY ==
[2022-08-21 00:22] VITALS: BP 107/65; PULSE 112; RESP 20; TEMP 35.8; BMI 22.3
[2022-08-29 09:47] VITALS: BP 97/61; PULSE 103; RESP 16; TEMP 36; BMI 22.3
--- NOTE | 2022-08-29 10:13 | PCM.WC.PN ---
History of Present Illness Date of Service: 08/29/22 Chief Complaint: Left Foot Ulcer History of Wound: Mr. Bailey is a 36 yo who presents to the wound center due to non healing left foot ulcer. Noted initially in October/November, he denies any known precipitating factor. History of Paraplegia and has no feeling in his feet. He has been seeing Podiatry at the [facility]. Has had some debridement done and has been applying Megan without any significant improvement. He denies any significant drainage. No chills, fever or feeling of unwell. Progress of Wound: Doing really well, minimal area left. Increased edema Objective Data Objective Data Vital Signs: Vital Signs Temp Pulse Resp BP O2 Del Method 96.8 F L 103 H 16 97/61 Room Air 08/29/22 09:47 08/29/22 09:47 08/29/22 09:47 08/29/22 09:47 08/29/22 09:47 Oxygen Delivery Method Room Air Weight: 160 lb Body Mass Index (BMI) 22.3 Charges/Coding Visit Charges Office Visits / Consults: [id number] OV L3 Est Physical Exam Const alert, oriented x3 and no apparent distress General Appearance: cooperative and comfortable HEENT normocephalic, head/scalp atraumatic and hearing grossly normal bilaterally Eyes EOMs intact bilaterally Neck full ROM and supple General: normal visual inspection Resp normal respiratory effort Effort and Inspection: able to speak in complete sentences Skin Wounds: wounds noted Neuro oriented x3 and CN's II-XII intact bilaterally Psych mental status grossly normal, thought process normal, cooperative, affect normal and speech normal Debridement Note Debridement Note Post-Debridement Measurements and Additional Note: Post-Debridement Measurements/Treatment - Nurse 1 - General Ulcer Assessment Start: 08/29/22 09:47 Freq: Status: Active Protocol: SRUTHI.LOWMAGALYT Activity Type Activity Date Activity User E-sign Co-sign Detail Recorded Client Recorded Date Recorded By Document 08/29/22 09:47 [facility] [id number] 08/29/22 09:53 [facility] 08/29/22 09:47 - Today's Visit Information Type of service Follow-up Visit (Physician/BUDGET ASSISTANT ) Arrival Mode Wheelchair Transfer Assistance None Accompanied by GF Patient Identification Verified (Name & Yes ) Patient Requires Transmission-Based No Precautions Height and Weight Body Mass Index (BMI) 22.3 BMI Classification Normal Vital Signs Temperature (97.8 F-99.1 F) 96.8 F L Temperature Source Temporal Pulse Rate (60-100) 103 H Pulse Location Monitor Respiratory Rate (12-18) 16 Respiratory rate source Observation Oxygen Delivery Method Room Air Blood Pressure (90/60-120/80) 97/61 Blood Pressure Mean (mm Hg) 73 Source Monitor Position Sitting Blood Pressure Location Left Arm History Since Last Visit- (Skip if this is Patient's initial visit) Have you changed medications since your No last visit? Any new allergies or adverse reactions No Had a fall/change in ADL's that may No increase risk of falls Signs or symptoms of abuse and/or No neglect since last visit Have you been in the hospital since your No last visit? Has dressing in place as prescribed Yes Has compression in place as prescribed N/A Has offloadiing in place as prescribed N/A Experienced any changes in pain level or No management Left Footwear Regular Shoe Right Footwear Regular Shoe Pain Scale: 0-10 Numeric Is Patient Pain Free? Yes - Nurse 1 - General Ulcer Measurement Start: 08/29/22 09:47 Freq: Status: Active Protocol: Activity Type Activity Date Activity User E-sign Co-sign Detail Recorded Client Recorded Date Recorded By Document 08/29/22 09:47 [facility] [id number] 08/29/22 09:53 [facility] 08/29/22 09:47 Wound Center Nurse 1 #3 L FOOT 3/4 WEBSPACE -Combined with other wound No -Current Size (cm) - Length 0.8 -Current Size (cm) - Width 0.5 -Current Size (cm) - Depth 0.1 -Total Square Cm 0.40 -Date of Last Picture (Recall this 08/29/22 field) -Photo Taken Yes -Epithelialization None Present -Tunneling No -Undermining/Tunneling No -Circular Undermining No -Exudate Amt None Present -Wound Margin Flat & Intact -Granulation Amt Large (67-100%) -Granulation Quality Red -Slough/Fibrin No -Necrosis Amt None Present (0 %) -Texture (Nata-wound Skin Appearance) Assessed, Scarring -Moisture (Nata-wound Skin Appearance) Assessed,Dry/ Scaly -Color (Nata-wound Skin Appearance) Assessed, Hemosiderin Staining -Temperature (Nata-wound Skin No Abnormality Appearance) (Pt Warm) -Tenderness on Palpation (Nata-wound No Skin Appearance) -Ulcer Cleansing Rinsed/ Irrigated with Saline -Foul Odor after Cleansing No -Anesthetic Used 5% Lidocaine Gel WC - Nurse 2 - General Ulcer CM Notes Start: 08/29/22 09:47 Freq: Status: Active Protocol: Activity Type Activity Date Activity User E-sign Co-sign Detail Recorded Client Recorded Date Recorded By Document 08/29/22 10:04 SHAYNE [id number] 08/29/22 10:05 SHAYNE 08/29/22 10:04 Wound Center Nurse 2 -Correct Patient No -Correct Side, Site, Position No -Correct Procedure No -Procedure Performed No -Post Debridement (cm) - Length 0.1 -Post Debridement (cm) - Width 0.1 -Post Debridement (cm) - Depth 0.1 -Total Square (Post) (cm) 0.01 -Area of Debridement (cm) - Length 0.1 -Area of Debridement (cm) - Width 0.1 -Total Square (Area) (cm) 0.01 -Wound/Ulcer Outcome Not Healed Pain Scale: 0-10 Numeric Is Patient Pain Free? Yes Assessment/Plan Assessment/Plan (1) Ulcer of left foot with fat layer exposed: CODE(S): L97.522 - Non-pressure chronic ulcer of other part of left foot with fat layer exposed (2) Paraplegia: CODE(S): G82.20 - Paraplegia, unspecified PLAN: Plan No debridement completed today, minimal area left. Continue moistened Aquacel extra and cover with Adaptic. ABD over top. Compliance with compression strongly recommended. Double layer Tubigrip for compression, leg elevation, exercise as tolerated, vitamin C, D. His questions were answered and he was advised to call with any further questions or concerns. Follow-up in 2 weeks. This note was generated with [email or web address] dictation software. It may contain incorrect words, spelling, and punctuation that were not noted in checking the note before signing.
[2022-09-12 09:47] VITALS: BP 141/70; PULSE 83; RESP 18; TEMP 36.1; BMI 22.3
--- NOTE | 2022-09-12 10:48 | PN.PCM_ITS ---
History of Present Illness Date of Service: 09/12/22 Chief Complaint: Left Foot Ulcer History of Wound: Mr. Bailey is a 36 yo who presents to the wound center due to non healing left foot ulcer. Noted initially in October/November, he denies any known precipitating factor. History of Paraplegia and has no feeling in his feet. He has been seeing Podiatry at the [facility]. Has had some debridement done and has been applying Megan without any significant improvement. He denies any significant drainage. No chills, fever or feeling of unwell. Progress of Wound: No new concerns at this time. Essentially healed. Objective Data Objective Data Vital Signs: Vital Signs Temp Pulse Resp BP O2 Del Method 97 F L 83 18 141/70 H Room Air 09/12/22 09:47 09/12/22 09:47 09/12/22 09:47 09/12/22 09:47 08/29/22 09:47 Oxygen Delivery Method Room Air Weight: 160 lb Body Mass Index (BMI) 22.3 Charges/Coding Visit Charges Office Visits / Consults: 29812 OV L3 Est Physical Exam Const alert, oriented x3 and no apparent distress General Appearance: cooperative and comfortable HEENT normocephalic, head/scalp atraumatic and hearing grossly normal bilaterally Eyes EOMs intact bilaterally Neck full ROM and supple General: normal visual inspection Resp normal respiratory effort Effort and Inspection: able to speak in complete sentences Skin Wounds: wounds noted Neuro oriented x3 and CN's II-XII intact bilaterally Psych mental status grossly normal, thought process normal, cooperative, affect normal and speech normal Debridement Note Debridement Note Post-Debridement Measurements and Additional Note: Post-Debridement Measurements/Treatment - Nurse 1 - General Ulcer Assessment Start: 08/29/22 09:47 Freq: Status: Active Protocol: SRUTHI.LOWEXT Activity Type Activity Date Activity User E-sign Co-sign Detail Recorded Client Recorded Date Recorded By Document 08/29/22 09:47 [facility] [id number] 08/29/22 09:53 BMF Document 09/12/22 09:47 DL [id number] 09/12/22 09:53 DL 08/29/22 09/12/22 09:47 09:47 - Today's Visit Information Type of service Follow-up Visit Follow-up Visit (Physician/MARINE SPECIALIST (Physician/MARINE SPECIALIST ) ) Arrival Mode Wheelchair Wheelchair Transfer Assistance None None Accompanied by GF Patient Identification Verified (Name & Yes Yes ) Patient Requires Transmission-Based No No Precautions Height and Weight Body Mass Index (BMI) 22.3 22.3 BMI Classification Normal Normal Vital Signs Temperature (97.8 F-99.1 F) 96.8 F L 97 F L Temperature Source Temporal Temporal Pulse Rate (60-100) 103 H 83 Pulse Location Monitor Respiratory Rate (12-18) 16 18 Respiratory rate source Observation Observation Oxygen Delivery Method Room Air Blood Pressure (90/60-120/80) 97/61 141/70 H Blood Pressure Mean (mm Hg) 73 93 Source Monitor Monitor Position Sitting Blood Pressure Location Left Arm History Since Last Visit- (Skip if this is Patient's initial visit) Have you changed medications since your No No last visit? Any new allergies or adverse reactions No No Had a fall/change in ADL's that may No No increase risk of falls Signs or symptoms of abuse and/or No No neglect since last visit Have you been in the hospital since your No No last visit? Has dressing in place as prescribed Yes Yes Has compression in place as prescribed N/A N/A Has offloadiing in place as prescribed N/A N/A Experienced any changes in pain level or No Yes management Left Footwear Regular Shoe Regular Shoe Right Footwear Regular Shoe Regular Shoe Pain Scale: 0-10 Numeric Is Patient Pain Free? Yes Yes WC - Nurse 1 - General Ulcer Measurement Start: 08/29/22 09:47 Freq: Status: Active Protocol: Activity Type Activity Date Activity User E-sign Co-sign Detail Recorded Client Recorded Date Recorded By Document 08/29/22 09:47 BMF [id number] 08/29/22 09:53 BMF Document 09/12/22 09:47 DL [id number] 09/12/22 09:53 DL 08/29/22 09/12/22 09:47 09:47 Wound Center Nurse 1 #3 L FOOT 3/4 WEBSPACE -Combined with other wound No -Current Size (cm) - Length 0.8 0.1 -Current Size (cm) - Width 0.5 0.1 -Current Size (cm) - Depth 0.1 0.1 -Total Square Cm 0.40 0.01 -Date of Last Picture (Recall this 08/29/22 field) -Photo Taken Yes Yes -Epithelialization None Present -Tunneling No -Undermining/Tunneling No -Circular Undermining No -Exudate Amt None Present None Present -Wound Margin Flat & Intact Flat & Intact -Granulation Amt Large (67-100%) Large (67-100%) -Granulation Quality [place],Red -Slough/Fibrin No -Necrosis Amt None Present (0 None Present (0 %) %) -Structure Exposed N/A -Texture (Nata-wound Skin Appearance) Assessed, Scarring Scarring -Moisture (Nata-wound Skin Appearance) Assessed,Dry/ No Abnormality Scaly -Color (Nata-wound Skin Appearance) Assessed, No Abnormality Hemosiderin Staining -Temperature (Nata-wound Skin No Abnormality No Abnormality Appearance) (Pt Warm) (Pt Warm) -Tenderness on Palpation (Nata-wound No Skin Appearance) -Ulcer Cleansing Rinsed/ Rinsed/ Irrigated with Irrigated with Saline Saline -Foul Odor after Cleansing No No -Anesthetic Used 5% Lidocaine Gel WC - Nurse 2 - General Ulcer CM Notes Start: 08/29/22 09:47 Freq: Status: Active Protocol: Activity Type Activity Date Activity User E-sign Co-sign Detail Recorded Client Recorded Date Recorded By Document 08/29/22 10:04 [id number] 08/29/22 10:05 Document 09/12/22 10:18 MW [id number] 09/12/22 10:20 MW 08/29/22 09/12/22 10:04 10:18 Wound Center Nurse 2 #3 L FOOT 3/4 WEBSPACE -Time 10:19 -Correct Patient No Yes -Correct Side, Site, Position No Yes -Correct Procedure No Yes -Procedure Performed No No -Post Debridement (cm) - Length 0.1 0 -Post Debridement (cm) - Width 0.1 0 -Post Debridement (cm) - Depth 0.1 -Total Square (Post) (cm) 0.01 0 -Area of Debridement (cm) - Length 0.1 -Area of Debridement (cm) - Width 0.1 -Total Square (Area) (cm) 0.01 -Wound/Ulcer Outcome Not Healed Healed- Epithelialized Pain Scale: 0-10 Numeric Is Patient Pain Free? Yes Yes WC - Nurse 3 - General Ulcer D/C NN Start: 08/29/22 09:47 Freq: Status: Active Protocol: Activity Type Activity Date Activity User E-sign Co-sign Detail Recorded Client Recorded Date Recorded By Document 08/29/22 10:18 [id number] 08/29/22 10:20 JF Document 09/12/22 10:35 DL [id number] 09/12/22 10:36 DL 08/29/22 09/12/22 10:18 10:35 Wound Care Center Nurse 3 #3 L FOOT 3/4 WEBSPACE -Ulcer Cleansing Rinsed/ Rinsed/ Irrigated with Irrigated with Saline Saline -Foul Odor after Cleansing No No -Primary Dressing Applied Aquacel Extra, Aquacel Extra, NonAdherent NonAdherent Contact Layer Contact Layer -Other Dressing bactroban -Primary Dressing Covered/Secured with Dry Gauze, Dry Gauze, Secured with Secured with Tape Tape -Aquacel Extra 1 1 Treatment Response Procedure Tolerated Well Pain Scale: 0-10 Numeric Is Patient Pain Free? Yes Yes WC - Visit Discharge Discharge Condition Stable Stable Ambulatory Status Wheelchair Wheelchair Transportation Private Auto Accompanied by friend Medication Reconcilliation completed & Yes provided to patient/care provider Clinical Summary of Care Provided Yes Notes: Healed/ discharged Assessment/Plan Assessment/Plan (1) Ulcer of left foot with fat layer exposed: CODE(S): L97.522 - Non-pressure chronic ulcer of other part of left foot with fat layer exposed (2) Paraplegia: CODE(S): G82.20 - Paraplegia, unspecified PLAN: Plan No debridement completed today, essentially healed. Continue moistened Aquacel extra and cover with Adaptic to minimal open area. ABD over top. Once completely closed, continue Adaptic and ABD for at least 1 month. Moisturize skin adequately. Compliance with compression strongly recommended. Double layer Tubigrip for compression, leg elevation, exercise as tolerated, vitamin C, D. His questions were answered and he was advised to call with any further questions or concerns. Discharge from the wound center. This note was generated with [employer] software. It may contain incorrect words, spelling, and punctuation that were not noted in checking the note before signing.
== END 2022-09-20 23:59 | disposition home or self-care (01) ==
LOC: WC 09:45
PROVIDERS: PCP Family Medicine; Visit Provider Internal Medicine
DX: L97.522 Non-pressure chronic ulcer of other part of left foot with fat layer exposed (principal); G82.20 Paraplegia, unspecified
CPT/HCPCS: 99213; G0463

== ENCOUNTER → 2023-01-24 | Outpatient (CLI) | payer MEDICARE, MEDICAID, SELFPAY ==
--- NOTE | 2023-01-24 18:53 | US_ITS ---
STUDY: RENAL ULTRASOUND - COMPLETE REASON FOR EXAM: Male, 37 years old. ATROPHIC RT KIDNEY TECHNIQUE: Ultrasound evaluation of the kidneys was performed with real-time and static dee-scale imaging. COMPARISON: CT 04/05/2020 FINDINGS: RIGHT KIDNEY: with severe renal atrophy. The right kidney measures 5.2 x 2.5 cm. . There is diffuse thinning of the renal cortex. There is no right renal mass or cyst. There are no right renal calculi. There is no right hydronephrosis. DISTAL RIGHT URETER: There is non-visualization of the distal right ureter. There is no demonstrated right ureterovesical junction calculus. There is no demonstrated right ureteral jet. LEFT KIDNEY: Normal location of the left kidney, which is normal in size. The left kidney measures 12.5 x 4.5 cm. . There is a normal cortex of the left kidney. There is no left renal mass or cyst. There are 2 left renal calculi. These measure up to 7 mm. There is no left hydronephrosis. DISTAL LEFT URETER: There is non-visualization of the distal left ureter. There is no demonstrated left ureterovesical junction calculus. There is no demonstrated left ureteral jet. AORTA: There is obscuration of the abdominal aorta by overlying bowel gas I.V.C.: It is not visualized. There is too much overlying bowel gas. BLADDER: The distended urinary bladder has a volume in cc of 20. There is a normal wall thickness of the distended urinary bladder. There is no demonstrated mass within the urinary bladder. There are no demonstrated bladder calculi. US/Kidney and Bladder IMPRESSION: Nonobstructive left renal stones. Atrophy of the right kidney. Electronically Signed: Avery Mccarty MD at 19:00 EDT ,
== END | disposition home or self-care (01) ==
LOC: US 18:52
PROVIDERS: PCP Family Medicine
DX: N26.1 Atrophy of kidney (terminal) (principal)
CPT/HCPCS: 76770

== ENCOUNTER → 2023-01-27 | Outpatient (CLI) | payer MEDICARE, MEDICAID, SELFPAY ==
--- NOTE | 2023-01-27 17:59 | CT_ITS ---
STUDY: CT CERVICAL SPINE WITH CONTRAST REASON FOR EXAM: Male, 37 years old. CERVICAL DISC DEGENERATION, CERVICAL FUSION RADIATION DOSAGE (If Supplied By Facility): CTDIvol = ( 19.22 ) mGy, DLP = ( 375.39 ) mGycm TECHNIQUE: High resolution transaxial imaging was performed following intravenous administration of IV 100mL Isovue-370. Sagittal and coronal images were reconstructed. Individualized dose optimization techniques were used for this CT. COMPARISON: None FINDINGS: Normal craniovertebral junction. Normal anterior atlantoaxial articulation. Normal odontoid process. There is straightening of the normal cervical lordosis. Normal vertebral bodies and posterior osseous elements. C2-3: Normal endplates. Normal disc height and morphology. Normal central canal and intervertebral neuroforamina. C3-4: Anterior spondylosis. Disc space is within normal limits. C4-5: Moderate degree of disc space narrowing. Anterior spondylosis. Minimal posterior spondylosis with no significant stenosis. C5-6: Normal endplates. Normal disc height and morphology. Normal central canal and intervertebral neuroforamina. C6-7: Prior anterior fusion and disc prosthesis placement. No evidence of spinal stenosis. C7-T1: Normal endplates. Normal disc height and morphology. Normal central canal and intervertebral neuroforamina. Normal visualized soft tissue structures. CT/Spine Cervical WITH Contrast IMPRESSION: Status post anterior fusion and disc placement at the C6-C7 level. Disc space narrowing and spondylosis at the C3-C4 and C4-C5 levels. Electronically Signed: Magdi Nesbitt MD at 14:47 EDT ,
== END | disposition home or self-care (01) ==
LOC: CT 17:57
PROVIDERS: PCP Family Medicine; Referring Provider Registered Nurse Maternal Newborn; Visit Provider Registered Nurse Maternal Newborn
DX: M50.320 Other cervical disc degeneration, mid-cervical region, unspecified level (principal); M43.22 Fusion of spine, cervical region
CPT/HCPCS: 72126; Q9967

== ENCOUNTER 2024-08-19 10:12 | Outpatient (RCR) | payer MEDICARE, MEDICAID, SELFPAY ==
[2024-08-19 10:30] VITALS: BP 114/74; PULSE 87; RESP 18; TEMP 36.3
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
--- NOTE | 2024-08-20 09:24 | WC ---
PHOTO 08/19/24 LEFT FOOT THIRD TOE
== END 2024-08-20 23:59 | disposition home or self-care (01) ==
LOC: WC 10:12
PROVIDERS: PCP Family Medicine; Referring Provider Family Medicine; Visit Provider Internal Medicine
DX: L97.522 Non-pressure chronic ulcer of other part of left foot with fat layer exposed (principal); G82.20 Paraplegia, unspecified; Z79.899 Other long term (current) drug therapy; Z87.828 Personal history of other (healed) physical injury and trauma
CPT/HCPCS: 11042; 87070; 87075; 87077; 87186; 87205; 99213; G0463

== ENCOUNTER 2024-09-09 10:30 | Outpatient (RCR) | payer MEDICARE, MEDICAID, SELFPAY ==
[2024-08-21 02:44] VITALS: BP 114/74; PULSE 87; RESP 18; TEMP 36.3
[2024-08-26 10:32] VITALS: BP 136/62; PULSE 82; RESP 18; TEMP 36.2
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
[2024-09-09 10:48] VITALS: BP 117/63; PULSE 73; RESP 18; TEMP 36.4
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
--- NOTE | 2024-09-10 09:04 | WC ---
PHOTO 09/09/24
== END 2024-09-20 23:59 | disposition home or self-care (01) ==
LOC: WC 10:30
PROVIDERS: PCP Family Medicine; Referring Provider Family Medicine; Visit Provider Internal Medicine
DX: L97.522 Non-pressure chronic ulcer of other part of left foot with fat layer exposed (principal); G82.20 Paraplegia, unspecified; Z79.899 Other long term (current) drug therapy; Z87.828 Personal history of other (healed) physical injury and trauma
CPT/HCPCS: 11042

== ENCOUNTER 2024-09-30 10:30 | Outpatient (RCR) | payer MEDICARE, MEDICAID, SELFPAY ==
[2024-09-21 00:29] VITALS: BP 117/63; PULSE 73; RESP 18; TEMP 36.4
[2024-09-23 11:05] VITALS: BP 110/64; PULSE 75; RESP 18; TEMP 35.9
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
--- NOTE | 2024-09-24 10:53 | WC ---
PHOTO 09/23/24 LEFT FOOT
--- NOTE | 2024-09-29 15:43 | WC ---
Sarah Esteban transfers care of this patient over to Dr. Hernandez as of 09/29/24
[2024-09-30 10:59] VITALS: BP 121/70; PULSE 71; RESP 18; TEMP 36
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
== END 2024-10-20 23:59 | disposition home or self-care (01) ==
LOC: WC 10:30
PROVIDERS: PCP Family Medicine; Referring Provider Family Medicine; Visit Provider Internal Medicine
DX: L97.522 Non-pressure chronic ulcer of other part of left foot with fat layer exposed (principal); G82.20 Paraplegia, unspecified; M79.89 Other specified soft tissue disorders; Z79.899 Other long term (current) drug therapy
CPT/HCPCS: 11042; 87070; 87075; 87077; 87186; 87205

== ENCOUNTER 2024-11-04 10:45 | Outpatient (RCR) | payer MEDICARE, MEDICAID, SELFPAY ==
[2024-10-21 00:13] VITALS: BP 121/70; PULSE 71; RESP 18; TEMP 36
[2024-10-21 11:26] VITALS: BP 118/71; PULSE 85; RESP 16; TEMP 36.6
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
[2024-11-04 11:02] VITALS: BP 127/68; PULSE 96; RESP 18; TEMP 36.3
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
== END 2024-11-18 14:41 | disposition home or self-care (01) ==
LOC: WC 10:45
PROVIDERS: PCP Family Medicine; Referring Provider Family Medicine; Visit Provider Internal Medicine
DX: L97.522 Non-pressure chronic ulcer of other part of left foot with fat layer exposed (principal); G82.20 Paraplegia, unspecified; Z79.899 Other long term (current) drug therapy
CPT/HCPCS: 11042; 99213; G0463

== ENCOUNTER 2024-12-28 18:51 | Emergency (ER) | payer MEDICARE, MEDICAID, SELFPAY ==
[2024-12-28 18:51] VITALS: BP 155/136; PULSE 91; RESP 18; TEMP 36.8; O2SAT 98
[2024-12-28 19:00] VITALS: BMI 22.6
--- NOTE | 2024-12-28 19:57 | US_ITS ---
PROCEDURE: TESTICULAR WITH ARTERIAL FLOW 12/28/2024 REASON FOR EXAM: RIGHT TESTICLE SWOLLEN AND RED. TECHNIQUE: TESTICULAR WITH ARTERIAL FLOW COMPARISON: None. FINDINGS: RIGHT testicle: 4.3 x 3.5 x 2.9 cm with homogeneous echotexture and preserved vascular flow. Right epididymis: 1.9 x 1.2 x 1.3 cm with normal vascularity. 4 mm epididymal head cyst. LEFT testicle: 4.3 x 2.7 x 2.3 cm with homogeneous echotexture and preserved vascular flow. Left epididymis: 1.3 x 1.4 x 1.2 cm with normal vascularity. 10 mm epididymal head cyst. Other findings: Moderate right right hydrocele with internal debris and septations. Small left hydrocele with debris. No definite varicocele is although Valsalva could not be demonstrated due to paralysis. US/Testicular with Arterial Flow IMPRESSION: Moderate right hydrocele with internal debris and septations which may represen t infection. Small left hydrocele with internal debris which may represent infection. Bilateral epididymal head cysts. Reading Location: [id number]
--- NOTE | 2024-12-28 19:58 | EX.ED.GUMALE ---
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 States that he has had right testicular swelling since yesterday. No prior history no prior orchitis. He self caths. He has not noticed any significant difference in his urine. Denies any known trauma to the area. Has not had a fever. Prior similar symptoms: No Recent Illness/Hospitalization: No [facility] Medical History History of morales Ulcer of left foot with fat layer exposed Paralysis Home Medications ?Medication ?Instructions ?Recorded ?Last Taken ?Type ascorbic acid (vitamin C) 500 mg 1,000 mg PO DAILY@0800 09/13/13 Unknown History tablet (Vitamin C) cholecalciferol (vitamin D3) 25 1 tab PO DAILY 09/13/13 Unknown History mcg (1,000 unit) capsule (Vitamin D3) multivitamin with folic acid 400 1 tab PO DAILY 09/13/13 Unknown History mcg tablet (Thera) polyethylene glycol 3350 17 gram 17 g PO PRN PRN Constipation 09/13/13 Unknown History oral powder packet vitamin E (dl, acetate) 180 mg 400 units PO DAILY 09/13/13 Unknown History (400 unit) capsule cyanocobalamin (vitamin B-12) 1,000 mcg PO DAILY 07/06/20 Unknown History 1,000 mcg tablet ciclopirox 0.77 % topical gel 1 applic topical BID 02/28/22 Unknown History cranberry concentrate-ascorbic 1 cap PO DAILY 02/28/22 Unknown History acid 4,200 mg-20 mg capsule oxycodone-acetaminophen 7.5 mg-325 1 tab PO Q6H PRN Pain 02/28/22 Unknown History mg tablet tizanidine 2 mg tablet 2 mg PO BID PRN PRN muscle 08/19/24 Unknown History spasticity levofloxacin 500 mg tablet 500 mg PO DAILY #10 tabs 12/28/24 Unknown Rx Allergy/AdvReac Type Severity Reaction Status Date / Time No Known Allergies Allergy Verified 12/28/24 18:52 Social History Smoking Status: Never smoker ROS ROS ED ROS Narrative No recent illness. Constitutional Constitutional ED: Denies fever(s) Eyes Eyes: Denies blurry vision Cardiovascular Cardiovascular: Denies chest pain Respiratory/Chest Respiratory/Chest: Denies cough Gastrointestinal Gastrointestinal: Denies abdominal pain Genitourinary Genitourinary ED: Denies dysuria or hematuria Musculoskeletal Musculoskeletal: Denies arthralgias or back pain Integumentary Denies abscess Neurologic Neurologic: Denies headache(s) Psychiatric Psychiatric: Denies anxiety Endocrine Endocrinology: Denies polydipsia Hematologic/Lymphatic Hematologic/Lymphatic: Denies easy bleeding Allergic/Immunologic Allergic/Immunologic ED: Denies mouth swelling, tongue swelling or urticaria EXAM Physical Exam Narrative Exam Narrative: 39-year-old male sitting upright in bed. Vital signs stable afebrile. Significant other at bedside. H EENT exam pupils round react light. His motions are intact. Neck nontender no lymphadenopathy. Lungs clear to auscultation bilaterally. Heart regular rhythm rate about 90 no murmur. Chest wall ribs nontender. Abdomen soft nontender. Back nontender. Well-healed prior thoracic surgical scar. External exam is right testicle hemiscrotum is swollen. He does not have sensation so he is not feeling pain or any tenderness. There is no hernia or mass. Circumcised male. Left side of his scrotum and testicle are nonswollen. This could be an orchitis or scrotal cellulitis. There is no abscess. There is no necrotic skin. No foreign years. Upper extremities normal strength. Lower extremities are atrophied. Paralyzed. No sensation. Neurologically is awake alert. Answering questions following commands. Const Vital Signs: 12/28/24 18:51 12/28/24 20:51 Temperature 98.3 F Temperature Source Oral Pulse Rate 91 97 Respiratory Rate 18 Blood Pressure 155/136 H 103/66 Blood Pressure Mean 142 78 Pulse Ox 98 97 Oxygen Delivery Method Room Air Room Air Positive well nourished and well developed; Negative for obese, cachectic, contractures or unkempt General Appearance ED: well developed and NAD; Negative for unkempt, cachectic, contractures or pallor Nutritional Appearance: Negative for cachectic or obese HEENT Reports moist mucous membranes normocephalic and atraumatic Eyes PERRL and EOMs intact bilaterally Neck no lymphadenopathy, supple and no JVD Resp normal respiratory effort and clear to auscultation bilaterally Cardio regular rate, regular rhythm, S1 normal heart sound, S2 normal heart sound and no murmurs GI non-tender, non-distended and no masses Inspection: Negative for abdominal distention Palpation: soft; Negative for tender or guarding no CVA tenderness Narrative: Right hemiscrotal swelling. Redness. He has no sensation so is not tender. Circumcised. Left hemiscrotum and testicle not swollen not red. No abscess noted. No foreign years noted. No necrotic skin. Back/Spine no CVA tenderness Extremity Negative for normal to inspection Extremity Narrative: Bilateral lower extremities are atrophied. Paralyzed. No sensation. Neuro oriented x3, No moves all extremities, No no focal motor deficits and No no sensory deficits noted Sensorium / Orientation: alert, oriented to person, oriented to place and oriented to time Motor Exam: Negative for strength 5/5 throughout Psych mental status grossly normal Appearance: Negative for unkempt Skin Skin Narrative: Right hemiscrotum red. General Skin Exam: Negative for jaundice or pallor Lesions: no lesions Rashes: No no rashes MDM MDM MDM Narrative Medical decision making narrative: 39-year-old male with paralysis of T4 level with loss of sensation. Complaining of acute 2-day history of right hemiscrotal swelling and redness. Possibly orchitis or epididymal orchitis or cellulitis.. Ultrasound will be obtained. OB start IV Rocephin. Screening labs and urinalysis. Repeat exam patient is doing well at 9:50 PM. Cash of the right testicle also has a swelling and the redness but no change. Again no foreign years. Patient clinically looks well. We discussed all of his test results. He will be treated as orchitis. Discharged home. Outpatient follow-up with primary care physician. Both he and his significant other are comfortable with plan. History & Record Review Discussion w/independent historian: Patient and Family Additional record(s) reviewed:: Prior inpatient record, Prior outpatient record, Prior ED visit and Prior labs Lab Data Attestation: I reviewed the patient's lab results. Lab results narrative: CBC shows a white count 7.1. H&H 13 and 40. Platelets 233. Electrolytes normal. Gap 11. BUN and creatinine are 22 and 0.7. Glucose 110. UA macroscopic normal. Labs: Laboratory Results - last 24 hr 12/28/24 12/28/24 20:05 21:10 WBC 7.1 RBC 4.14 L Hgb 13.1 Hct 40.3 MCV 97.3 H MCH 31.6 MCHC 32.5 RDW Std Deviation 43.3 RDW Coeff of Mode 12.1 Plt Count 233 MPV 9.7 Immature Gran % (Auto) 0.300 Neut % (Auto) 76.6 H Lymph % (Auto) 14.7 L [place] % (Auto) 7.5 Eos % (Auto) 0.8 Baso % (Auto) 0.1 Absolute Neuts (auto) 5.4 Absolute Lymphs (auto) 1.04 Nucleated RBC % 0 Sodium 142 Potassium 4.3 Chloride 105 Carbon Dioxide 25.7 Anion Gap 11 BUN 22 H Creatinine 0.74 Estim Creat Clear Calc 139.52 Est GFR (MDRD) Non-Af 118 BUN/Creatinine Ratio 29.9 H Glucose 110 H Calcium 9.2 Urine Color Yellow Urine Clarity Clear Urine pH 6.0 Ur Specific [place] 1.020 Urine Protein 30 H Urine Glucose (UA) Normal Urine Ketones Negative Urine Occult Blood Negative Urine Nitrite Negative Urine Bilirubin Negative Urine Urobilinogen 1 H Ur Leukocyte Esterase 100 H Urine RBC 0-5 SEEN Urine WBC 10-25 SEEN Ur Squamous Epith Cells 0-5 SEEN Urine Bacteria RARE Urine Mucus 0 SEEN Radiography Diagnostic Testing: Clinical Impression(s) from Imaging Studies Testicular Ultrasound 12/28/24 19:57 IMPRESSION: Moderate right hydrocele with internal debris and septations which may represent infection. Small left hydrocele with internal debris which may represent infection. Bilateral epididymal head cysts. Reading Location: [place] [address] Discharge Plan Triage Chief Complaint: Male Pain/Injury ED Provider: Roddy Kelly Dx/Rx/DC Orders Clinical Impression: Orchitis, T4 spinal cord injury, History of paralysis Instructions: ED Orchitis Prescriptions: New levofloxacin 500 mg tablet 500 mg PO DAILY Qty: 10 0RF No Action polyethylene glycol 3350 17 GM powder in packet 17 g PO PRN PRN (Reason: Constipation) ascorbic acid (vitamin C) [Vitamin C] 500 MG tablet 1,000 mg PO DAILY@0800 cholecalciferol (vitamin D3) [Vitamin D3] 1,000 UNIT capsule 1 tab PO DAILY vitamin E (dl, acetate) 400 UNITS capsule 400 units PO DAILY multivitamin with folic acid [Thera] 1 TABLET tablet 1 tab PO DAILY cyanocobalamin (vitamin B-12) 1,000 MCG tablet 1,000 mcg PO DAILY oxycodone-acetaminophen 7.5-325 mg Tablet 1 tab PO Q6H PRN (Reason: Pain) ciclopirox [Loprox] 0.77 % Gel 1 applic TOPICAL BID cranberry conc-ascorbic acid 4,200-20 mg Capsule 1 cap PO DAILY tizanidine 2 mg tablet 2 mg PO BID PRN PRN (Reason: muscle spasticity) Primary Care Provider: Nba Gunter Referrals: Nba Gunter MD [Primary Care Provider] - 3-5 Days Activity Restrictions/Additional Instructions: The antibiotic Levaquin 1 pill a day for 10 days. Follow-up with your doctor to ensure you are improving if you are not improving may need to refer you to a urologist. Return emerged department feeling worse. It will take several days of swelling to start going down. It may take 1 to 2 weeks to get closer to normal. Motrin will help decrease the swelling. Print Language: Burkinan Disposition Disposition: Home, Self Care
[2024-12-28 20:39] LABS: Hematocrit 40.3 % (40-54); Hemoglobin 13.1 g/dL (13.0-16.5); Immature Granulocytes Count 0.020 X10^3/uL (0.0-0.0); Mean Corp Hgb Conc 32.5 g/dL (32-36); Mean Corpuscular Volume 97.3 fL (80-94); Mean Platelet Vol. 9.7 fl (6.2-12.0); NRBC Flagged by Analyzer 0 % (0-5); Platelet Count 233 K/mm3 (150-450); RBC Distribution Width CV 12.1 % (11.6-14.6); RBC Distribution Width SD 43.3 fl (35.1-43.9); Red Blood Count 4.14 M/mm3 (4.6-6.2); White Blood Count 7.1 K/mm3 (4.4-11.0)
[2024-12-28 20:51] VITALS: BP 103/66; PULSE 97; O2SAT 97
[2024-12-28 21:03] LABS: Anion Gap 11 (5-15); BUN 22 mg/dL (4-19); BUN/Creat Ratio 29.9 RATIO (10-20); Calcium,Total 9.2 mg/dL (7.6-11.0); Carbon Dioxide 25.7 mmol/L (21.0-32.0); Chloride 105 mmol/L (98-108); Estimated Creatinine Clearance 139.52 ml/min (50-250); Glucose 110 mg/dL (70-99); Potassium 4.3 mmol/L (3.3-5.1)
[2024-12-28 21:19] LABS: Mucous, Urine 0 SEEN /hpf (<or=2+)
[2024-12-28 21:26] LABS: Color, Urine Yellow (Yellow); Glucose, Dipstick Normal (Normal); Ketone-Dipstick Negative (Negative); Leukocyte Esterase-Dipstick 100 /ul (Negative); Nitrite-Dipstick Negative (Negative); Occult Blood-Urine Negative /ul (Negative); Protein-Dipstick 30 mg/dl (Negative); Specific Gravity, Urine 1.020 (1.002-1.030); Urine Bilirubin Dipstick Negative (Negative)
[2024-12-28 21:40] LABS: Red Blood Cells-Urine 0-5 SEEN /hpf (0-5); Squamous Epithelial Cells - UA 0-5 SEEN /hpf (0-5)
[2024-12-28 21:58] VITALS: BP 103/66; PULSE 79; PULSE 80; RESP 16; TEMP 36.8; O2SAT 100; O2SAT 98
== END 2024-12-28 22:29 | disposition home or self-care (01) ==
PROVIDERS: Emergency Provider Emergency Medicine; PCP Family Medicine; Visit Provider Emergency Medicine
DX: N45.2 Orchitis (principal); G83.89 Other specified paralytic syndromes; Z87.828 Personal history of other (healed) physical injury and trauma
CPT/HCPCS: 76870; 80048; 81001; 85025; 93976; 96365; 99283; A4216